=== PATIENT | male | born 1950 | race Caucasian/White ===

== ENCOUNTER 2023-04-17 14:02 | Observation (INO) ==
--- NOTE | 2023-04-17 14:10 | ED Triage Note ---
Date of Service April 17, 2023 Provider in Triage Author: Meagan Baltazar History of Present Illness This patient was briefly evaluated while in triage. An abbreviated physical exam was performed. This patient is a 72-year-old Male who presents to the ED for evaluation of "a urinary tract infection, I think." Friday, had cloudy urine. Denies any pain. Has had fevers/chills. Physical Exam VITALS: Vitals are noted on the nurse's note and reviewed by myself. GENERAL: This is a 72 year old male, in no acute distress, nondiaphoretic, well- developed well-nourished. SKIN: No obvious rashes, edema, erythema HEAD: Normocephalic atraumatic. EYES: Conjunctivae without injection, sclerae without icterus. NECK: No JVD. LUNGS: No retractions or accessory muscle use. MUSCULOSKELETAL: Presents in a wheelchair NEURO: Patient was alert and oriented to person place and time. No focal neurological deficits. Initial orders for labs and / or imaging were placed and patient was placed in the waiting area until a bed is available. Please see further documentation for the full ED course.
[2023-04-17] MEDS ORDERED: SODIUM CHLORIDE 0.9% 500 ML IV STA (14:13)
[2023-04-17 15:04] LABS: Basophils # (auto) 0.02 K/uL (0.00-0.20); Basophils % (auto) 0.5 %; Eosinophils # (auto) 0.08 K/uL (0.00-0.50); Eosinophils % (auto) 2.1 %; Hematocrit (blood only) 37.6 % (42.0-52.0); Hemoglobin 12.9 g/dl (14.0-18.0); Immature Granulocytes # (auto) 0.01 K/uL (0.01-0.20); Immature Granulocytes % (auto) 0.3 %; Lymphocytes # (auto) 1.43 K/uL (1.20-3.40); Lymphocytes % (auto) 37.4 %; Mean Corpuscular Hemoglobin 27.4 pg (25.0-34.0); Mean Corpuscular Hgb Conc 34.3 g/dL (32.0-36.0); Mean Platelet Volume 10.4 fL (9.4-12.4); Monocytes # (auto) 0.58 K/uL (0.11-0.59); Monocytes % (auto) 15.2 %; Neutrophils % (auto) 44.5 %; Platelet Count 151 K/uL (130-400); RDW Coefficient of Variation 16.3 % (11.5-14.5); RDW Standard Deviation 46.9 fL (36.4-46.3); White Blood Count 3.82 K/ul (4.8-10.8)
[2023-04-17 15:07] LABS: Appearance Urine Turbid (Clear); Bacteria Urine Automated Negative (Negative); Bilirubin Urine Negative (Negative); Blood Urine Trace (Negative); Color Urine Dark Yellow; Glucose Urine UA Negative (Negative); Ketones Urine 1+ (Negative); Leukocyte Esterase Urine 3+ (Negative); Nitrite Urine Negative (Negative); Protein Urine 1+ (Negative); RBC Urine Automated 0-4 /hpf (0-4); Specific Gravity Urine 1.014 (1.000-1.030); Urobilinogen Urine Negative (Negative); WBC Urine Automated >30 /hpf (0-5)
[2023-04-17 15:18] LABS: Alanine Aminotransferase 6 U/L (7-52); Albumin Globulin Ratio 1.3 (0.9-2); Alkaline Phosphatase 171 U/L (34-104); Anion Gap 10 (3-11); Aspartate Aminotransferase 36 U/L (13-39); BUN Creatinine Ratio 18.5 (10-20); Bilirubin,Total 0.9 mg/dl (0.2-1.0); Blood Urea Nitrogen 20 mg/dl (6-23); Calcium 9.2 mg/dl (8.6-10.3); Carbon Dioxide 22 mmol/L (21-32); Chloride 103 mmol/L (98-107); Est GFR (African American) 79.6 ml/min; Est GFR (Non-African American) 68.7 ml/min; Glucose 141 mg/dl (70-99(Fasting)); Lipase 37 U/L (11-82); Potassium 3.6 mmol/L (3.5-5.1); Sodium 135 mmol/L (136-145)
--- NOTE | 2023-04-17 16:00 | CT Scan Report ---
CT SCAN OF THE ABDOMEN AND PELVIS WITHOUT IV CONTRAST CLINICAL HISTORY: Urinary tract infection. COMPARISON STUDY: Abdominal CT dated 02/05/2021. TECHNIQUE: CT scan of the abdomen and pelvis is performed from the lung bases to the proximal femora. Images are reviewed in the axial, sagittal, and coronal planes. IV contrast was not administered for this examination. A dose lowering technique was utilized adhering to the principles of ALARA. CT DOSE: 1237.56 mGy.cm FINDINGS: Lung bases: The heart is top normal in size and without pericardial effusion. There is coronary arter y atherosclerosis. Agent on the right lower lobe pulmonary nodule is seen on image #6. The lung bases are otherwise clear. There is a small hiatal hernia. Liver: The unenhanced liver is normal in size, contour, and attenuation. There is no intrahepatic sundeep iary ductal dilatation. Gallbladder: Unremarkable. Spleen: The spleen is enlarged measuring 14.6 cm in length. Pancreas: The unenhanced pancreas is moderately atrophic and grossly unremarkable. Adrenal glands: Unremarkable. Kidneys: The unenhanced kidneys there is a mild cortical atrophy. There is moderate to severe bilater al hydroureteronephrosis. The ureters are dilated to the level of the markedly distended bladder. No obstructing stone or lesion is seen. No renal calculi are identified. There is no evidence of contour deforming renal mass lesion. Abdominal vasculature: The abdominal aorta is normal in course and caliber noting moderate atheroscle rotic calcification. Bowel: There is mild colonic diverticulosis without CT evidence of acute diverticulitis. No bowel obs truction is seen. There is moderate colonic fecal retention. The appendix is well-visualized and nor mal. Peritoneum: There is no intraperitoneal free air or abdominal ascites. Lymphadenopathy: None. Pelvic viscera: The prostate gland is enlarged and heterogeneous. The bladder is significantly disten ded, and the bladder wall is thickened/trabeculated indicating chronic outlet obstruction. Small blad jorje diverticula measure up to 2.5 cm. There is a fat-containing left inguinal hernia. A left-sided hy drocele is partially imaged. Skeletal structures: The skeletal structures are osteopenic. No lytic or blastic lesions are seen. Mi ld lumbosacral spondylosis is observed. There are chronic/healed right-sided rib fractures. IMPRESSION: 1. Prostatomegaly with marked bladder distention and evidence of chronic outlet obstruction. 2. Moderate to severe bilateral hydroureteronephrosis. This is likely related to the degree of bladde r distention. Correlate clinically. 3. Mild colonic diverticulosis without CT evidence of acute diverticulitis. 4. Splenomegaly. 5. Additional findings as above. ACT 112: Negative or not required by law. Electronically signed by: Corky Dewitt M.D. 04/17/2023 3:58 PM
[2023-04-17] MEDS ORDERED: cefTRIAXone SODIUM 1,000 MG in DEXTROSE 5 % MINI-B 50 ML IV STA (17:16)
--- NOTE | 2023-04-17 17:18 | Emergency Department Note ---
Impression & Plan Acute UTI, Acute urinary retention ED Provider Note Diagnosis: UTI, urinary retention, hydronephrosis Disposition: Admission CHIEF COMPLAINT: HPI: Patient is a 72-year-old male presenting with urinary symptoms. Patient states he has been having dysuria for 4 to 5 days time. Patient states that he has had issues with urethral stricture previously. Patient states he most recently in the past 3 to 6 months had it dilated. Patient denies any significant abdominal pain currently. Patient denies fevers or chills. PAST MEDICAL HISTORY: See Below PAST SURGICAL HISTORY: See Below SOCIAL HISTORY: See Below HOME MEDICATIONS: See Below ALLERGIES: See Below VITALS: See Below PHYSICAL EXAMINATION: GENERAL: Well appearing, well nourished, NAD, non-toxic. EYE EXAM: Normal conjunctiva. OROPHARYNX: Moist mucus membranes. Grossly normal dentition. NECK: Supple, LUNGS: Clear to auscultation. Normal chest wall mechanics. HEART: NSR ABDOMEN: Abdomen soft, distention lower abdomen suprapubic region BACK: No CVA TTP. SKIN: No rashes and no bruising. UPPER EXTREMITIES: Upper extremities are grossly normal LOWER EXTREMITIES: Grossly normal, no edema. NEURO EXAM: A&O x3,, normal speech, moves all 4 extremities PSYCH: Cooperative MEDICAL DECISION MAKING: Reviewed external documents: History obtained from: Patient, ER Course: Patient is a 72-year-old male presenting with complaint of dysuria. Patient found to have urinalysis with UTI and started on Rocephin. Patient's abdomen in the suprapubic region was distended. Patient has CT of abdomen pelvis which showed significant distention of the bladder with increased size to the prostate with hydronephrosis bilaterally. Patient had a postvoid residual performed which was 700 cc. Patient's case was discussed with urology team attempt was had by nursing staff as well as myself for Rutherford catheter placement which was unsuccessful. Patient did not have any bleeding from the penis. Patient's case again was discussed with urology who came down bedside to evaluate the patient. Patient was admitted to hospital service due to UTI urinary retention. Labs (independently interpreted) are significant for: Leukocytosis Medications given: Rocephin Consultants: Dr. Howard of urology reviewed patient's outpatient studies with Dr. Leblanc. Recommends attempting Rutherford catheter placement 14 Yoruba catheter and if meeting any resistance to stop and call him back and he will evaluate the patient in person. Hospitalist admit the patient to their service further treatment evaluation Triage Nursing notes reviewed and agree them. Vital Signs: reviewed and remarkable for: no significant abnormalities Past Med/Surg History Medical History Allergic rhinitis History of urethral stricture Iron deficiency anemia Major depressive disorder with single episode Parkinsonism Progressive supranuclear palsy Recurrent UTI Vitamin D deficiency Surgical History Urinary anastomotic stricture Family History Mother Depression Diabetes Other Hypertension Denies family history of Ovarian cancer Prostate cancer Myocardial infarction Breast cancer Colorectal cancer Social History (Updated 04/17/23 @ 13:15 by MARINO White) Smoking Status: Never smoker Age Started Using Tobacco: 19; Age Quit Using Tobacco: 46; Second Hand Exposure: No; Do You Dip or Chew Tobacco: No; Hx Alcohol Use: No Hx Substance Use: No Preferred Language: Hungarian Communication Ability: Effective 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: No Beliefs That Will Affect Care: None marital status: Current Living Situation: Spouse current occupational status: retired How many Children do You have: 3 Feels Safe at Home: Yes Childhood Exposure to Second-Hand Smoke: No Diet: regular caffeine: Yes Dental Care, Regularly: No Physical Activity Frequency: Does not Exercise Seatbelt Use: always Sunscreen Use: Yes Assistive Devices: Glasses and Walker Allergies Allergies Allergy/AdvReac Type Severity Reaction Status Date / Time No Known Allergies Allergy Verified 04/17/23 13:04 Home Meds Home Medications Medication Instructions Recorded Confirmed cholecalciferol (vitamin D3) 125 125 mcg PO QAM 02/05/21 04/17/23 mcg (5,000 unit) tablet (Vitamin D3) loratadine 10 mg tablet (Claritin) 10 mg PO QAM 02/05/21 04/17/23 carbidopa 25 mg-levodopa 100 mg 2 tab PO QID 12/18/22 04/17/23 tablet (Sinemet) ferrous sulfate 325 mg (65 mg 325 mg PO Q OTHER DAY 12/18/22 04/17/23 iron) tablet carbidopa ER 36.25 mg-levodopa 145 1 cap PO UD 04/17/23 04/17/23 mg capsule,extended release finasteride 5 mg tablet 5 mg PO QAM 04/17/23 04/17/23 losartan 25 mg tablet 25 mg PO QAM 04/17/23 04/17/23 rosuvastatin 20 mg tablet (Crestor) 20 mg PO QAM 04/17/23 04/17/23 tamsulosin 0.4 mg capsule 0.4 mg PO QAM 04/17/23 04/17/23 Previous Rx's Medication Instructions Recorded omeprazole 20 mg capsule,delayed 20 mg PO DAILYBB #90 caps 01/27/23 release alprazolam 0.25 mg tablet (Xanax) 0.125 - 0.25 mg (0.5 - 1 x 0.25 02/05/23 mg) PO DAILY PRN sleep #30 tabs bupropion HCl 150 mg 24 hr tablet, 150 mg PO QAM #90 tabs 03/10/23 extended release Results & Data (ED) Vital Signs Vital Signs - 24 hr 04/17/23 14:08 04/17/23 16:03 04/17/23 16:14 Temperature 36.8 C Temperature Source Temporal Artery Scan Pulse Rate 85 73 Pulse Rate [Apical] 74 Respiratory Rate 18 18 Respiratory Effort / Characteristics Non-Labored Spontaneous Respiratory Depth Normal Blood Pressure 153/90 H Blood Pressure [Left Arm] 169/82 H Blood Pressure Mean 111 Blood Pressure Mean [Left Arm] 111 Blood Pressure Position Sitting Pulse Oximetry 95 97 Oxygen Delivery Method Room Air Room Air Sepsis Recent Fever Within 48 Hours No Sepsis New/Unexplained Change in Mental Status No Sepsis Action Taken by Nursing No Action Required Laboratory Data 04/17/23 14:45 04/17/23 14:45 Lab Results 04/17/23 Range/Units 14:45 WBC 3.82 L (4.8-10.8) K/ul RBC 4.70 (4.70-6.10) M/uL Hgb 12.9 L (14.0-18.0) g/dl Hct 37.6 L (42.0-52.0) % MCV 80.0 (80.0-100.0) fL MCH 27.4 (25.0-34.0) pg MCHC 34.3 (32.0-36.0) g/dL RDW Std Deviation 46.9 H (36.4-46.3) fL RDW Coeff of Ana Rosa 16.3 H (11.5-14.5) % Plt Count 151 (130-400) K/uL MPV 10.4 (9.4-12.4) fL Immature Gran % (Auto) 0.3 % Neut % (Auto) 44.5 % Lymph % (Auto) 37.4 % Sampson % (Auto) 15.2 % Eos % (Auto) 2.1 % Baso % (Auto) 0.5 % Neut # (Auto) 1.70 (1.40-6.50) K/uL Lymph # (Auto) 1.43 (1.20-3.40) K/uL Sampson # (Auto) 0.58 (0.11-0.59) K/uL Eos # (Auto) 0.08 (0.00-0.50) K/uL Baso # (Auto) 0.02 (0.00-0.20) K/uL Immature Gran # (Auto) 0.01 (0.01-0.20) K/uL Sodium 135 L (136-145) mmol/L Potassium 3.6 (3.5-5.1) mmol/L Chloride 103 (98-107) mmol/L Carbon Dioxide 22 (21-32) mmol/L Anion Gap 10 (3-11) BUN 20 (6-23) mg/dl Creatinine 1.08 (0.6-1.4) mg/dl Est Cr Clr Drug Dosing Not Reportable Est GFR ( Amer) 79.6 ml/min Est GFR (Non-Af Amer) 68.7 ml/min BUN/Creatinine Ratio 18.5 (10-20) Glucose 141 H (70-99(Fasting)) mg/dl Calcium 9.2 (8.6-10.3) mg/dl Total Bilirubin 0.9 (0.2-1.0) mg/dl AST 36 (13-39) U/L ALT 6 L (7-52) U/L Alkaline Phosphatase 171 H (34-104) U/L Total Protein 7.0 (6.0-8.3) gm/dl Albumin 4.0 (3.4-5.0) gm/dl Globulin 3.0 (2.5-4.0) gm/dl Albumin/Globulin Ratio 1.3 (0.9-2) Lipase 37 (11-82) U/L Administered Medications Acetaminophen (Acetaminophen 500 Mg Tab) 1,000 mg PO Q8H DAVID Stop: 05/17/23 21:52 Last Admin: 04/17/23 22:25 Dose: 1,000 mg Documented By: MAYELA Carbidopa/Levodopa (Carbidopa/Levodopa 25/100mg Tab) 2 tab PO 0800,1200,1600,2000 DAVID Stop: 05/17/23 22:29 Last Admin: 04/17/23 22:24 Dose: 2 tab Documented By: MAYELA Enoxaparin Sodium (Enoxaparin Inj 40 Mg/0.4 Ml Syr) 40 mg SQ HS DAVID Stop: 05/17/23 22:14 Last Admin: 04/17/23 22:25 Dose: 40 mg Documented By: MAYELA Lactated Ringer's (Lr) 1,000 mls @ 80 mls/hr IV .[id number] DAVID Stop: 04/18/23 10:22 Last Admin: 04/17/23 22:21 Dose: 80 mls/hr Documented By: MAYELA Discontinued Medications Carbidopa/Levodopa (Carbidopa/Levodopa 25/100mg Tab) 2 tab PO QID DAVID Stop: 05/17/23 21:52 Last Admin: 04/18/23 00:00 Dose: Not Given Documented By: MAYELA Sodium Chloride (Nss) 500 mls @ 999 mls/hr IV .Q31M STA Stop: 04/17/23 14:43 Last Infusion: 04/17/23 16:21 Dose: Infused Documented By: Admin: 04/17/23 14:56 Dose: 999 mls/hr Documented By: GRICELDAD Ceftriaxone Sodium 1,000 mg/ (Dextrose) 50 mls @ 100 mls/hr IV NOW STA; Protocol Stop: 04/17/23 17:45 Last Infusion: 04/17/23 18:42 Dose: Infused Documented By: Admin: 04/17/23 17:41 Dose: 100 mls/hr Documented By: ACC Famotidine (Pepcid 20mg Iv Push) 20 mg in 5 mls @ 2.5 mls/min IV NOW STA Stop: 04/17/23 19:49 Last Admin: 04/17/23 20:10 Dose: 2.5 mls/min Documented By: ACC Ketorolac Tromethamine (Ketorolac Tromethamine 15 Mg/Ml Vial) 15 mg IV NOW ONE Stop: 04/17/23 19:49 Last Admin: 04/17/23 20:10 Dose: 15 mg Documented By: ACC Morphine Sulfate (Morphine Sulfate 4 Mg/Ml 1 Ml Carp\Vial) 4 mg IV NOW STA Stop: 04/17/23 18:42 Last Admin: 04/17/23 18:46 Dose: 4 mg Documented By: [facility] Imaging Data Radiologist's Impression: Abdomen/Pelvis CT 04/17/23 15:07 CT SCAN OF THE ABDOMEN AND PELVIS WITHOUT IV CONTRAST CLINICAL HISTORY: Urinary tract infection. COMPARISON STUDY: Abdominal CT dated 02/05/2021. TECHNIQUE: CT scan of the abdomen and pelvis is performed from the lung bases to the proximal femora. Images are reviewed in the axial, sagittal, and coronal planes. IV contrast was not administered for this examination. A dose lowering technique was utilized adhering to the principles of ALARA. CT DOSE: 1237.56 mGy.cm FINDINGS: Lung bases: The heart is top normal in size and without pericardial effusion. There is coronary artery atherosclerosis. Agent on the right lower lobe pulmonary nodule is seen on image #6. The lung bases are otherwise clear. There is a small hiatal hernia. Liver: The unenhanced liver is normal in size, contour, and attenuation. There is no intrahepatic biliary ductal dilatation. Gallbladder: Unremarkable. Spleen: The spleen is enlarged measuring 14.6 cm in length. Pancreas: The unenhanced pancreas is moderately atrophic and grossly unremarkable. Adrenal glands: Unremarkable. Kidneys: The unenhanced kidneys there is a mild cortical atrophy. There is moderate to severe bilateral hydroureteronephrosis. The ureters are dilated to the level of the markedly distended bladder. No obstructing stone or lesion is seen. No renal calculi are identified. There is no evidence of contour deforming renal mass lesion. Abdominal vasculature: The abdominal aorta is normal in course and caliber noting moderate atherosclerotic calcification. Bowel: There is mild colonic diverticulosis without CT evidence of acute diverticulitis. No bowel obstruction is seen. There is moderate colonic fecal retention. The appendix is well-visualized and normal. Peritoneum: There is no intraperitoneal free air or abdominal ascites. Lymphadenopathy: None. Pelvic viscera: The prostate gland is enlarged and heterogeneous. The bladder is significantly distended, and the bladder wall is thickened/trabeculated indicating chronic outlet obstruction. Small bladder diverticula measure up to 2.5 cm. There is a fat-containing left inguinal hernia. A left-sided hydrocele is partially imaged. Skeletal structures: The skeletal structures are osteopenic. No lytic or blastic lesions are seen. Mild lumbosacral spondylosis is observed. There are chronic/healed right-sided rib fractures. IMPRESSION: 1. Prostatomegaly with marked bladder distention and evidence of chronic outlet obstruction. 2. Moderate to severe bilateral hydroureteronephrosis. This is likely related to the degree of bladder distention. Correlate clinically. 3. Mild colonic diverticulosis without CT evidence of acute diverticulitis. 4. Splenomegaly. 5. Additional findings as above. ACT 112: Negative or not required by law. Electronically signed by: Corky Dewitt M.D. 04/17/2023 3:58 PM Discharge Plan Visit Data Chief Complaint: Urinary Symptoms Stated Complaint: UTI,FEVER, CHILLS, HYPOTENSION,WEAKNESS ED Provider: Fran Matute Discharge Problem: Acute UTI, Acute urinary retention Patient Disposition: Admitted As Inpatient Discharge Instructions Interventions: ED Discharge Assessment Last Done: 04/17/23 21:20
[2023-04-17] MEDS ORDERED: MoRPHine SULFATE 4 MG/ML 1 ML CARP\\VIAL IV STA (18:41)
[2023-04-17] MEDS ORDERED: FAMOTIDINE 20MG IV PUSH 20 MG/5 ML SYR IV STA (19:48)
[2023-04-17] MEDS ORDERED: KETOROLAC TROMETHAMINE 15 MG/ML VIAL IV ONE (19:48)
--- NOTE | 2023-04-17 19:51 | Urology Consultation ---
Date of Consultation April 17, 2023 Assessment & Plan (1) Recurrent UTI: (2) History of urethral stricture: Plan Rutherford catheter was successfully placed after urethral dilation. Patient tolerated the procedure well. Catheter should stay in for at least a week to allow bladder rest and full treatment of his presumed urinary tract infection. Would recommend broad-spectrum antibiotics, narrowing coverage as culture data becomes available. Will plan to arrange outpatient follow-up to discuss his urethral stricture further and whether there is any indication for further intervention. History of Present Illness Reason for Consultation: Urinary retention, inability to place Rutherford catheter Attending Physician: Fran Matute, History of Present Illness This is a 72-year-old male followed by urology for urethral strictures, incomplete bladder emptying.He presented to the emergency department on 04/17/2023 reporting 4 to 5 days of gradually worsening dysuria and fatigue. He had been prescribed Macrobid and had some ciprofloxacin at home which he tried. Initially, there was some improvement in his symptoms, however after approximately 1 day, he started to worsen. Workup in the ED was notable for leukopenia (WBC 3.82). Creatinine was 1.08, glucose 141. Urinalysis demonstrated turbid urine, positive nitrites, 3+ leukocyte esterase, negative bacteria. In the emergency department a CT scan was performed. I independently reviewed these images which demonstrate significant bilateral hydronephrosis and hydroureter, extending down to a distended bladder. No stones or other focal obstructions are appreciated. Due to the distended bladder and associated hydronephrosis, Rutherford catheter placement was attempted, however providers in the ED were unsuccessful. Urology was consulted for assistance with catheter placement. Rutherford catheter was placed in the following fashion: Rutherford catheter was placed in the following fashion: Patient was prepped and draped in normal sterile fashion and verbal consent was obtained. ~10 cc of sterile lubricant jelly was injected per urethra. A well- lubricated 18 Fr coud catheter was inserted per urethra, however met resistance at approximately the level of the bulbar urethra. 0.038 inch zip wire was then advanced per urethra and easily past the narrowed area. Good position was confirmed in the bladder by patient reporting increased sense of pressure and some urine draining alongside the wire. The urethra was dilated using S curved dilators from 8-14 Kazakh. A councilized 14 Kazakh silicone catheter was then advanced over the wire, past the stricture and up to the bladder. There was return of dark yellow urine. The balloon was inflated with 10 mL of normal saline and the catheter was attached to gravity drainage. Patient tolerated the procedure well with no immediate complications. Allergies Allergy/AdvReac Type Severity Reaction Status Date / Time No Known Allergies Allergy Verified 04/17/23 13:04 Home Medications Medication Instructions Recorded Confirmed Type cholecalciferol (vitamin D3) 125 125 mcg PO QAM 02/05/21 04/17/23 History mcg (5,000 unit) tablet (Vitamin D3) loratadine 10 mg tablet (Claritin) 10 mg PO QAM 02/05/21 04/17/23 History carbidopa 25 mg-levodopa 100 mg 2 tab PO QID 12/18/22 04/17/23 History tablet (Sinemet) ferrous sulfate 325 mg (65 mg 325 mg PO Q OTHER DAY 12/18/22 04/17/23 History iron) tablet omeprazole 20 mg capsule,delayed 20 mg PO DAILYBB #90 caps 01/27/23 04/17/23 Rx release alprazolam 0.25 mg tablet (Xanax) 0.125 - 0.25 mg (0.5 - 1 x 0.25 02/05/23 04/17/23 Rx mg) PO DAILY PRN sleep #30 tabs bupropion HCl 150 mg 24 hr tablet, 150 mg PO QAM #90 tabs 03/10/23 04/17/23 Rx extended release finasteride 5 mg tablet 5 mg PO QAM 04/17/23 04/17/23 History losartan 25 mg tablet 25 mg PO QAM 04/17/23 04/17/23 History rosuvastatin 20 mg tablet (Crestor) 20 mg PO QAM 04/17/23 04/17/23 History tamsulosin 0.4 mg capsule 0.4 mg PO QAM 04/17/23 04/17/23 History Patient History Medical History Allergic rhinitis History of urethral stricture Iron deficiency anemia Major depressive disorder with single episode Parkinsonism Progressive supranuclear palsy Recurrent UTI Vitamin D deficiency Surgical History Urinary anastomotic stricture Family History Mother Depression Diabetes Other Hypertension Denies family history of Ovarian cancer Prostate cancer Myocardial infarction Breast cancer Colorectal cancer Social History (Updated 04/17/23 @ 13:15 by MARINO White) Smoking Status: Never smoker Age Started Using Tobacco: 19; Age Quit Using Tobacco: 46; Second Hand Exposure: No; Do You Dip or Chew Tobacco: No; Hx Alcohol Use: No Hx Substance Use: No Preferred Language: Beninese Communication 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 Physical Exam Constitutional: well developed and well nourished; no acute distress Eyes: + anicteric sclerae; pupils not irregula r Respiratory: normal respiratory effort; no respiratory distress, does not use accessory muscles and no cough Cardiovascular: well perfused Gastrointestinal (Abdomen): Inspection/Auscultation: abdomen normal to inspection; abdomen not distended Musculoskeletal: Extremities: extremities normal to inspection Skin: normal turgor; no rashes and no lesions Neurologic: awake Psychiatric: Orientation: alert and oriented x 3 Genitourinary: Rutherford catheter in position with dark urine draining in tubing. Results & Data Vital Signs (Past 12 Hours) Vital Signs Temp Pulse Pulse Resp BP BP Pulse Ox 04/17/23 16:14 73 04/17/23 16:03 74 18 169/82 H 97 04/17/23 14:08 36.8 C 85 18 153/90 H 95 O2 Del Method 04/17/23 16:14 04/17/23 16:03 Room Air 04/17/23 14:08 Room Air PG Care Time/CCT Total # of Minutes Spent Total Time Spent with Patient: Total time spent is greater than 50% in coordination of care (as documented) at patient's floor/unit and/or counseling patient: Coding Level of Care Code 64960 OP VST NEW MOD 45-59 MIN Diagnoses Recurrent UTI N39.0 History of urethral stricture Z87.448
--- NOTE | 2023-04-17 20:26 | History & Physical Report ---
Date of Service April 17, 2023 Assessment & Plan (1) Urinary tract infection: Plan: -Pt with history of recurrent UTIs and urethral stricture presenting with acute urinary tract infection w/o pyelonephritis -Currently hemodynamically stable, afebrile, leukopenic though not meeting SIRS criteria on admission -Rocephin initiated in ED, will continue for now -UCx, BCx pending -Monitor CBC (2) Abdominal pain: Plan: -Secondary to acute infection/ascending UTI -Fluid repletion ongoing at maintenance -Zofran PRN nausea -Scheduled Tylenol w/ PRN Toradol and morphine for pain (3) Hydronephrosis: Plan: -Noted b/l severe hydronephrosis -S/p Rutherford catheter placement by urology -Urology consulted and following -Recommendations include maintaining catheter for 1 week w/o outpatient f/u (4) GERD (gastroesophageal reflux disease): Plan: -Continue omeprazole (5) HTN (hypertension): Plan: -Mild BP elevations likely due to abdominal pain -Continue losartan (renal function wnl on admission) (6) BPH with obstruction/lower urinary tract symptoms: Plan: -Continue tamsulosin, finasteride (7) Dyslipidemia: Plan: -Continue rosuvastatin (8) Iron deficiency anemia: Plan: -Hgb 12.9 on admission -No bleeding concern at present -Hold iron supplement while acute infection ongoing -Monitor CBC (9) Allergic rhinitis: Plan: -Continue Claritin (10) Major depressive disorder with single episode: Plan: -Continue Wellbutrin (11) Parkinsonism: Plan: -Continue Sinemet Plan FENGI: NPO except sips/chips due to abdominal pain -> advance to clear liquids in AM Code status: Full DVT prophylaxis: Lovenox Isolation: None Unit: Medical/surgical Disposition planning: Likely home History of Present Illness Chief Complaint: Dysuria Primary Care Provider: Teresa Martin MD Pt is 72 yo M with PMH HTN, HLD, BPH, GERD, IRMA, MDD, atypical Parkinson's disease, recurrent UTIs, urethral stricture with PRN Macrobid use presenting with dysuria. Pt states he's had dysuria with increased nocturnal urinary frequency and urinary discoloration (cloudy -> dark) since 04/13. Has had associated generalized weakness, fatigue, nausea and reduced oral intake along with mild suprapubic abdominal pain. Symptoms evolved to include intermittent subjective fevers and chills. He did use Macrobid during this time to little relief and started taking ciprofloxacin on 04/15 which did provide considerable relief of symptoms initially but they progressed the following day. Pt had PCP visit on 04/17 and was advised to go to ER for further evaluation. Pt arrived to ER hemodynamically stable. Initial evaluation significant for WBC 3.8, Hgb 12.9, UA w/ LE + WBCs. CTAP w/ prostatomegaly w/ marked bladder distension and chronic outlet obstruction, moderate/severe b/l hydronephrosis. ER interventions include NSS 500 cc bolus, ceftriaxone 1g, morphine 4 mg IV. Rutherford catheter placement attempted in ER but unsuccessful and required urology consult for successful catheter placement. At present, pt reports continued abdominal pain but otherwise no new complaints. Allergies Allergy/AdvReac Type Severity Reaction Status Date / Time No Known Allergies Allergy Verified 04/17/23 13:04 Home Medications Medication Instructions Recorded Confirmed Type cholecalciferol (vitamin D3) 125 125 mcg PO QAM 02/05/21 04/17/23 History mcg (5,000 unit) tablet (Vitamin D3) loratadine 10 mg tablet (Claritin) 10 mg PO QAM 02/05/21 04/17/23 History carbidopa 25 mg-levodopa 100 mg 2 tab PO QID 12/18/22 04/17/23 History tablet (Sinemet) ferrous sulfate 325 mg (65 mg 325 mg PO Q OTHER DAY 12/18/22 04/17/23 History iron) tablet omeprazole 20 mg capsule,delayed 20 mg PO DAILYBB #90 caps 01/27/23 04/17/23 Rx release alprazolam 0.25 mg tablet (Xanax) 0.125 - 0.25 mg (0.5 - 1 x 0.25 02/05/23 04/17/23 Rx mg) PO DAILY PRN sleep #30 tabs bupropion HCl 150 mg 24 hr tablet, 150 mg PO QAM #90 tabs 03/10/23 04/17/23 Rx extended release carbidopa ER 36.25 mg-levodopa 145 1 cap PO UD 04/17/23 04/17/23 History mg capsule,extended release finasteride 5 mg tablet 5 mg PO QAM 04/17/23 04/17/23 History losartan 25 mg tablet 25 mg PO QAM 04/17/23 04/17/23 History rosuvastatin 20 mg tablet (Crestor) 20 mg PO QAM 04/17/23 04/17/23 History tamsulosin 0.4 mg capsule 0.4 mg PO QAM 04/17/23 04/17/23 History Past Med/Surg History Medical History Allergic rhinitis History of urethral stricture Iron deficiency anemia Major depressive disorder with single episode Parkinsonism Progressive supranuclear palsy Recurrent UTI Vitamin D deficiency Surgical History Urinary anastomotic stricture Family History Mother Depression Diabetes Other Hypertension Denies family history of Ovarian cancer Prostate cancer Myocardial infarction Breast cancer Colorectal cancer Social History (Updated 04/17/23 @ 13:15 by MARINO White) Smoking Status: Never smoker Age Started Using Tobacco: 19; Age Quit Using Tobacco: 46; Second Hand Exposure: No; Do You Dip or Chew Tobacco: No; Hx Alcohol Use: No Hx Substance Use: No Preferred Language: Persian Communication Ability: Effective [employer] Required: No marital status: Current Living Situation: Spouse current occupational status: retired How many Children do You have: 3 Feels Safe at Home: Yes Childhood Exposure to Second-Hand Smoke: No Diet: regular caffeine: Yes Dental Care, Regularly: No Physical Activity Frequency: Does not Exercise Seatbelt Use: always Sunscreen Use: Yes Review of Systems Review of Systems: Per HPI/Subjective Physical Exam Physical Exam: General: uncomfortable-appearing, mild distress HEENT: PERRL, conjunctivae clear without injection, anicteric sclerae, moderately dry mucous membranes, clear oropharynx without exudate or erythema Neck: supple, trachea midline, no thyromegaly, no JVD, no cervical lymphadenopathy CV: RRR, normal S1 and S2, no murmurs Resp: CTAB, no increased work of breathing, no crackles or wheezes Abd: Soft, mild diffuse tenderness but no CVA tenderness, nondistended, no guarding or rebound, no hepatosplenomegaly MSK: Normal bulk of all four extremities Neuro: AOx3, generalized mild LE tremor greater in L > R (baseline Parkinsonian tremor per at bedside) Skin: no rashes or lesions, warm and dry Ext: no LE peripheral edema or erythema, capillary refill <2s in all four extremities, 2+ LE peripheral pulses b/l Results & Data Results & Data Vital Signs (Past 12 Hours) Vital Signs Temp Pulse Pulse Resp BP BP Pulse Ox 04/17/23 16:14 73 04/17/23 16:03 74 18 169/82 H 97 04/17/23 14:08 36.8 C 85 18 153/90 H 95 O2 Del Method 04/17/23 16:14 04/17/23 16:03 Room Air 04/17/23 14:08 Room Air Code Status & VTE Plan VTE Prophylaxis Plan VTE Prophylaxis will be ordered: Yes Supervising Physician Co-Signing Physician Notes I have personally seen, evaluated and examined the patient. I have also personally discussed the management of the patient with the resident physician and I agree with the exam findings documented in the history and physical examination and the documented assessment and plan unless otherwise stated below. I have personally discussed the patient with the resident physician I personally evaluated the patient he is now status post bladder catheter placement by urology. His pain is much improved. The patient is accompanied by his at the time my exam. Tentative plan is to probably discharge home with catheter for trial of void as outpatient. Urology input appreciated. Brief physical exam: HEENT: Normocephalic atraumatic. Heart: Regular rate and rhythm I do not appreciate murmur or ectopy or rub. Lungs: Are clear bilaterally with no adventitious sounds. Abdomen: Is still mildly tender there is no rebound or peritoneal signs are positive but hypoactive bowel sounds. Extremities: Are intact with no clubbing cyanosis or significant edema. Neurologically: The patient is alert and oriented x 3 accompanied by his jose carlos ferrer that he is still in some discomfort but improving. Assessment/plan: Acute urinary retention due to bladder outlet obstruction. Status post catheter placement with urology tonight in the ER. Continue antibiotic therapy gentle IV fluids. Plan outpatient follow-up with urology upon discharge.
--- NOTE | 2023-04-17 20:38 | Billing Data ---
Date of Service April 17, 2023 Coding Level of Care Code 20782 INT INP/OBS CARE
[2023-04-17] MEDS ORDERED: ONDANSETRON INJ 2 MG/ML 2 ML VIAL IV PRN (21:53)
[2023-04-17] MEDS ORDERED: KETOROLAC TROMETHAMINE 15 MG/ML VIAL IV PRN (21:53)
[2023-04-17] MEDS ORDERED: CARBIDOPA/LEVODOPA 25/100MG TAB PO SCH (21:53)
[2023-04-17] MEDS ORDERED: MoRPHine SULFATE 2 MG/ML CARP IV PRN (21:53)
[2023-04-17] MEDS ORDERED: LACTATED RINGER'S 1,000 ML IV SCH (21:53)
[2023-04-17] MEDS ORDERED: Patient's HEIGHT &/or WEIGHT Needed SCH (22:00)
[2023-04-17] MEDS ORDERED: ENOXAPARIN INJ 40 MG/0.4 ML SYR SQ SCH (22:15)
[2023-04-17] MEDS: CARBIDOPA/LEVODOPA 25/100MG TAB PO SCH (22:24)
[2023-04-17] MEDS: ACETAMINOPHEN 500 MG TAB PO SCH (22:25)
[2023-04-18] MEDS: ACETAMINOPHEN 500 MG TAB PO SCH ×2 (05:31→13:01)
[2023-04-18] MEDS ORDERED: PANTOprazole 40 MG TAB PO SCH ×2 (06:30→08:00)
[2023-04-18 07:45] LABS: Hemoglobin 10.9 g/dl (14.0-18.0); Mean Corpuscular Hemoglobin 27.4 pg (25.0-34.0); Mean Corpuscular Hgb Conc 34.1 g/dL (32.0-36.0); Mean Corpuscular Volume 80.4 fL (80.0-100.0); Mean Platelet Volume 11.1 fL (9.4-12.4); Platelet Count 134 K/uL (130-400); RDW Coefficient of Variation 16.4 % (11.5-14.5); RDW Standard Deviation 47.6 fL (36.4-46.3); Red Blood Count 3.98 M/uL (4.70-6.10); White Blood Count 3.65 K/ul (4.8-10.8)
[2023-04-18] MEDS: CARBIDOPA/LEVODOPA 25/100MG TAB PO SCH ×2 (07:50→11:53)
[2023-04-18 08:03] LABS: Albumin Globulin Ratio 1.6 (0.9-2); Albumin Level 3.5 gm/dl (3.4-5.0); BUN Creatinine Ratio 16.8 (10-20); Bilirubin,Total 0.6 mg/dl (0.2-1.0); Calcium 8.7 mg/dl (8.6-10.3); Creatinine Clr Calc Pharmacy 64.9 ml/min; Est GFR (African American) 86.3 ml/min; Est GFR (Non-African American) 74.5 ml/min; Globulin 2.2 gm/dl (2.5-4.0); Potassium 3.6 mmol/L (3.5-5.1); Total Protein 5.7 gm/dl (6.0-8.3)
[2023-04-18] MEDS ORDERED: Nursing to Pharmacy Communication SCH (08:15)
[2023-04-18] MEDS ORDERED: LOSARTAN POTASSIUM 25 MG TAB PO SCH (09:00)
[2023-04-18] MEDS ORDERED: TAMSULOSIN HCL 0.4 MG CAP PO SCH (09:00)
[2023-04-18] MEDS ORDERED: buPROPion XL 150 MG TABCR PO SCH (09:00)
[2023-04-18] MEDS ORDERED: FINASTERIDE 5 MG TAB PO SCH (09:00)
[2023-04-18] MEDS ORDERED: LORATADINE 10 MG TAB PO SCH (09:00)
[2023-04-18] MEDS ORDERED: ROSUVASTATIN CALCIUM 20 MG TAB PO SCH (09:00)
--- NOTE | 2023-04-18 14:19 | Discharge Summary ---
Date of Service April 18, 2023 Admission HPI Per Admitting Provider Pt is 72 yo M with PMH HTN, HLD, BPH, GERD, IRMA, MDD, atypical Parkinson's disease, recurrent UTIs, urethral stricture with PRN Macrobid use presenting with dysuria. Pt states he's had dysuria with increased nocturnal urinary frequency and urinary discoloration (cloudy -> dark) since 04/13. Has had associated generalized weakness, fatigue, nausea and reduced oral intake along with mild suprapubic abdominal pain. Symptoms evolved to include intermittent subjective fevers and chills. He did use Macrobid during this time to little relief and started taking ciprofloxacin on 04/15 which did provide considerable relief of symptoms initially but they progressed the following day. Pt had PCP visit on 04/17 and was advised to go to ER for further evaluation. Pt arrived to ER hemodynamically stable. Initial evaluation significant for WBC 3.8, Hgb 12.9, UA w/ LE + WBCs. CTAP w/ prostatomegaly w/ marked bladder distension and chronic outlet obstruction, moderate/severe b/l hydronephrosis. ER interventions include NSS 500 cc bolus, ceftriaxone 1g, morphine 4 mg IV. Child catheter placement attempted in ER but unsuccessful and required urology consult for successful catheter placement. At present, pt reports continued abdominal pain but otherwise no new complaints. Principal Diagnosis Acute on chronic urinary obstruction due to ureteral stricture with moderate bilateral hydronephrosis, possible urinary tract infection Discharge Exam PHYSICAL EXAMINATION Last 24h vital signs reviewed, see documentation in flowsheet General: comfortable appearing, no distress HEENT: Normocephalic, atraumatic, pupils round and equal, sclerae anicteric, no conjunctival injection, moist mucus membranes Lungs: Normal respiratory effort. Clear to auscultation bilaterally. No RRW Heart: Regular rate and rhythm, no murmurs. No JVD Abdomen: Soft, nontender, nondistended. Bowel sounds present. : child with 1L ammy urine in bag, no blood Extremities: Warm, dry, well-perfused. No extremity edema. Neuro: Alert and oriented x 4, bradykinesia and slow pace of speaking, face symmetric, moves 4 extremities well Psych: Normal affect and behavior Discharge Data Allergies Allergy/AdvReac Type Severity Reaction Status Date / Time No Known Allergies Allergy Verified 04/17/23 13:04 Consultations 04/17/23 19:10 ED Decision to Admit Stat Ordered Studies 04/17/23 15:07 CT abd pelvis wo con Stat Abdomen/Pelvis CT 04/17/23 15:07 CT SCAN OF THE ABDOMEN AND PELVIS WITHOUT IV CONTRAST CLINICAL HISTORY: Urinary tract infection. COMPARISON STUDY: Abdominal CT dated 02/05/2021. TECHNIQUE: CT scan of the abdomen and pelvis is performed from the lung bases to the proximal femora. Images are reviewed in the axial, sagittal, and coronal planes. IV contrast was not administered for this examination. A dose lowering technique was utilized adhering to the principles of ALARA. CT DOSE: 1237.56 mGy.cm FINDINGS: Lung bases: The heart is top normal in size and without pericardial effusion. There is coronary artery atherosclerosis. Agent on the right lower lobe pulmonary nodule is seen on image #6. The lung bases are otherwise clear. There is a small hiatal hernia. Liver: The unenhanced liver is normal in size, contour, and attenuation. There is no intrahepatic biliary ductal dilatation. Gallbladder: Unremarkable. Spleen: The spleen is enlarged measuring 14.6 cm in length. Pancreas: The unenhanced pancreas is moderately atrophic and grossly unremarkable. Adrenal glands: Unremarkable. Kidneys: The unenhanced kidneys there is a mild cortical atrophy. There is moderate to severe bilateral hydroureteronephrosis. The ureters are dilated to the level of the markedly distended bladder. No obstructing stone or lesion is seen. No renal calculi are identified. There is no evidence of contour deforming renal mass lesion. Abdominal vasculature: The abdominal aorta is normal in course and caliber noting moderate atherosclerotic calcification. Bowel: There is mild colonic diverticulosis without CT evidence of acute diverticulitis. No bowel obstruction is seen. There is moderate colonic fecal retention. The appendix is well-visualized and normal. Peritoneum: There is no intraperitoneal free air or abdominal ascites. Lymphadenopathy: None. Pelvic viscera: The prostate gland is enlarged and heterogeneous. The bladder is significantly distended, and the bladder wall is thickened/trabeculated indicating chronic outlet obstruction. Small bladder diverticula measure up to 2.5 cm. There is a fat-containing left inguinal hernia. A left-sided hydrocele is partially imaged. Skeletal structures: The skeletal structures are osteopenic. No lytic or blastic lesions are seen. Mild lumbosacral spondylosis is observed. There are chronic/healed right-sided rib fractures. IMPRESSION: 1. Prostatomegaly with marked bladder distention and evidence of chronic outlet obstruction. 2. Moderate to severe bilateral hydroureteronephrosis. This is likely related to the degree of bladder distention. Correlate clinically. 3. Mild colonic diverticulosis without CT evidence of acute diverticulitis. 4. Splenomegaly. 5. Additional findings as above. ACT 112: Negative or not required by law. Electronically signed by: Corky Dewitt M.D. 04/17/2023 3:58 PM 04/18/23 07:10 04/18/23 07:10 Hospital Course (1) Urinary tract obstruction: presented with abdominal pain found to have grossly distended bladder and moderate bilateral hydro nephrosis on CT scan without acute kidney injury or radiographic evidence of pyelonephritis. ED staff was unable to pass Child catheter Urology consulted and was able to pass a wire allowing dilation of the urethral stricture in the ED and placement of Child catheter he has good but not excessive urine output. Discussed with urologist he will need to keep Child for at least a week, he will arrange follow-up in urology clinic. Continue current medications for enlarged prostate I discussed the risk of polyuria/postobstructive diuresis with the patient and his . He does not appear to be having any evidence of that currently. Instructed they should seek immediate medical attention if he has dehydration weakness or excessive urine output over 3 L in 24 hours and to maintain good oral hydration (2) Urinary tract infection: history of recurrent UTIs abnormal urinalysis in ED, urine culture no growth to date however he was taking chronic suppressive Macrobid and started oral Cipro on his own a few days prior to admission so could be partially treated UTI even if culture results negative antibiotic course should be 7 to 14 days. Macrobid is likely to be ineffective, considered ciprofloxacin or Bactrim weighing risks and benefits which I discussed with the patient. Prescribed 10 days of Bactrim. - Follow-up blood and urine cultures which are pending and not finalized. he is aware we may have to change antibiotic if resistant organism grows (3) Abdominal pain: -Secondary to acute urinary obstruction. Pain resolved after Child catheter placement (4) Hydronephrosis: -Noted b/l severe hydronephrosis -S/p Child catheter placement by urology - see above (5) GERD (gastroesophageal reflux disease): -Continue omeprazole (6) HTN (hypertension): -Mild BP elevations likely due to abdominal pain -Continue losartan (renal function wnl on admission) (7) BPH with obstruction/lower urinary tract symptoms: -Continue tamsulosin, finasteride (8) Dyslipidemia: -Continue rosuvastatin (9) Iron deficiency anemia: -Hgb 12.9 on admission -No bleeding concern at present (10) Allergic rhinitis: -Continue Claritin (11) Major depressive disorder with single episode: -Continue Wellbutrin (12) Parkinsonism: -Continue Sinemet, stable Plan By CMS guidelines, a determination that the admission or continued stay is not medically necessary has been made by a member of the UR committee and a physician for this hospital stay, therefore a Code 44 will be completed and the Inpatient admission will be changed to outpatient. He improved more rapidly than expected and was able to be discharged home today thus admission was changed to observation. Total Time Total Time Spent Total Time Spent (In Minutes): I personally spent: 35 today on clinical care activities for discharge including: reviewing chart notes and vital signs reviewing labs reviewing studies discussion with proposal consultant(s) - urologist examining and counseling the patient counseling the patient's family - spoke with his at bedside writing discharge orders, instructions and prescription documentation Discharge Plan Discharge Items Patient Disposition: Home - Self-Care Reason For Visit: UTI Discharge Diagnosis: Acute on chronic urinary obstruction, possible UTI Activity: Resume your previous activity Non-emergency contact: Primary Care Provider and Urologist Call non-emergency contact if: you have any medication questions, your symptoms worsen and you have a fever Follow-up/Referrals: Donnie Leblanc MD [Physician] - 04/25/23 10:20 am (voiding trial) Teresa Martin MD [Primary Care Provider] - 04/29/23 11:00 am Diet: Regular Addtl Attending Provider Instructions: You were treated for urinary obstruction with dilation of ureteral stricture and placement of child catheter by Dr. Howard. He recommended keeping the catheter in place at least a week and following up in the Urology clinic for a voiding trial. You may have urinary tract infection, urine culture and blood cultures are pending -I prescribed bactrim for 10 days. This covers most urinary bacteria. I may have to call and change the antibiotic if your cultures grow something resistant, or even bring you back in the hospital if blood cultures turn positive or if you have a highly resistant urinary infection -the urologist can stop or extend the antibiotics depending on how you are doing when you follow up -I talked to Dr. Howard and he said he'll have the office call you to schedule follow up. you might want to call if you don't hear from them by Friday -sometimes after relief of urinary obstruction the kidneys temporarily make too much urine -come back to the ED if you are getting dehydrated - this could be lightheadedness, weakness, excessive thirst, excessive urination (more than 3L a day). If this happens you might need IV fluids and electrolyte replacements It was a pleasure seeing you in the hospital Dee Conley MD Pending Studies at Discharge: Yes Studies:: urine culture, blood cultures Stand-Alone Forms: My [facility], Smoking Cessation Medications and DC Order Prescriptions: New sulfamethoxazole-trimethoprim [Bactrim DS] 800-160 mg tablet 1 tab PO BID 10 Days Qty: 20 0RF Continued carbidopa-levodopa [Sinemet] 25-100 mg tablet 2 tab PO QID omeprazole 20 mg capsule,delayed release(DR/EC) 20 mg PO DAILYBB Qty: 90 1RF alprazolam [Xanax] 0.25 mg tablet 0.125 - 0.25 mg PO DAILY PRN (Reason: sleep) Qty: 30 0RF bupropion HCl 150 mg tablet extended release 24 hr 150 mg PO QAM Qty: 90 3RF losartan 25 mg tablet 25 mg PO QAM finasteride 5 mg tablet 5 mg PO QAM rosuvastatin [Crestor] 20 mg tablet 20 mg PO QAM tamsulosin 0.4 mg capsule 0.4 mg PO QAM carbidopa-levodopa 36.25-145 mg Capsule, Extended Release 1 cap PO UD Rx Instructions: ONLY TAKES EXTENDEND RELEASE AT 10 PM. loratadine [Claritin] 10 mg Tablet 10 mg PO QAM cholecalciferol (vitamin D3) [Vitamin D3] 125 mcg (5,000 unit) Tablet 125 mcg PO QAM ferrous sulfate 325 mg (65 mg iron) tablet 325 mg PO Q OTHER DAY Discharge Orders: Discharge Order (Routine); Ordered 04/18/23 Ordered By: Dee William/Other Patient Handouts: Urinary Catheter Bag Empty Clean, Indwelling Urinary Catheter Dc Admission Data Admit Date/Time: 04/17/23 19:59 Attending Provider: Dee Conley Admit Provider: Marie Corral Primary Care Provider: Teresa Martin Other Providers: Hermes Early Other Interventions: Discharge Summary Assessment (RN) Last Done: 04/18/23 15:10 Coding Level of Care Code 63543 INP/OBS DISCH >30 MIN Diagnoses Urinary tract obstruction N13.9 Urinary tract infection N39.0 Abdominal pain R10.9 Hydronephrosis N13.30 GERD (gastroesophageal reflux disease) K21.9 HTN (hypertension) I10 BPH with obstruction/lower urinary tract symptoms N40.1; N13.8 Dyslipidemia E78.5 Iron deficiency anemia D50.9 Allergic rhinitis J30.9 Major depressive disorder with single episode F32.9 Parkinsonism G20
[2023-04-18] MEDS ORDERED: cefTRIAXone SODIUM 2,000 MG in DEXTROSE 5 % MINI-B 50 ML IV SCH (18:00)
== END 2023-04-18 15:39 | disposition home or self-care (01) | DRG 690 ==
LOC: ED 14:02 → INTOOBSV 19:59 → SUATTDRO 19:59 → 3W 19:59

== ENCOUNTER 2023-07-14 15:11 | Observation (INO) ==
[2023-07-14 16:27] LABS: Basophils # (auto) 0.05 K/uL (0.00-0.20); Basophils % (auto) 0.6 %; Eosinophils # (auto) 0.29 K/uL (0.00-0.50); Eosinophils % (auto) 3.3 %; Hematocrit (blood only) 39.3 % (42.0-52.0); Immature Granulocytes # (auto) 0.07 K/uL (0.01-0.20); Immature Granulocytes % (auto) 0.8 %; Lymphocytes # (auto) 1.96 K/uL (1.20-3.40); Lymphocytes % (auto) 22.6 %; Mean Corpuscular Hemoglobin 27.8 pg (25.0-34.0); Mean Corpuscular Hgb Conc 33.1 g/dL (32.0-36.0); Mean Corpuscular Volume 84.2 fL (80.0-100.0); Mean Platelet Volume 10.7 fL (9.4-12.4); Monocytes # (auto) 1.12 K/uL (0.11-0.59); Monocytes % (auto) 12.9 %; Neutrophils % (auto) 59.8 %; Platelet Count 257 K/uL (130-400); RDW Coefficient of Variation 14.9 % (11.5-14.5); RDW Standard Deviation 44.5 fL (36.4-46.3); Red Blood Count 4.67 M/uL (4.70-6.10); White Blood Count 8.69 K/ul (4.8-10.8)
[2023-07-14 16:43] LABS: Alanine Aminotransferase 7 U/L (7-52); Albumin Globulin Ratio 1.3 (0.9-2); Albumin Level 4.1 gm/dl (3.4-5.0); Alkaline Phosphatase 141 U/L (34-104); Anion Gap 9 (3-11); Aspartate Aminotransferase 36 U/L (13-39); BUN Creatinine Ratio 12.1 (10-20); Bilirubin,Total 0.3 mg/dl (0.2-1.0); Blood Urea Nitrogen 12 mg/dl (6-23); Calcium 9.4 mg/dl (8.6-10.3); Carbon Dioxide 24 mmol/L (21-32); Chloride 106 mmol/L (98-107); Est GFR (African American) 88.4 ml/min; Est GFR (Non-African American) 76.3 ml/min; Globulin 3.1 gm/dl (2.5-4.0); Glucose 64 mg/dl (70-99(Fasting)); Potassium 4.2 mmol/L (3.5-5.1); Sodium 139 mmol/L (136-145); Total Protein 7.2 gm/dl (6.0-8.3)
[2023-07-14] MEDS: CEFEPIME 2,000 MG/20 ML VIAL IV STA (16:44)
--- NOTE | 2023-07-14 17:13 | History & Physical Report ---
Date of Service July 14, 2023 Assessment & Plan (1) Complicated urinary tract infection: Plan: Patient presented to the ED on 07/10 for an acute UTI and was discharged on ciprofloxacin He returned on 07/13 after his Urine Cx revealed pedraza-resistance to p.o. antibiotics Indwelling Child catheter Clinically, patient denies urinary symptoms at time of admission Cefepime 2000 mg IV given in the ED Will transition to ertapenem 1 g IV daily with a plan to continue this at home Acetaminophen as needed for pain/fever A.m. CBC, BMP (2) History of urethral stricture: Plan: Chronic indwelling Child, last changed on June Will plan to change Child on 07/14 at 0900 Continue finasteride Daily Child catheter care (3) Parkinsonism: Plan: Continue levodopa 4 times daily, as well as extended release dose at nighttime (4) Constipation: Plan: On 07/10 showed moderate constipation Continue MiraLAX BID (5) Anxiety: Plan: Alprazolam 0.25mg p.o. HS as needed for anxiety (6) Major depressive disorder with single episode: Plan: Continue bupropion (7) HTN (hypertension): Plan: Continue losartan (8) GERD (gastroesophageal reflux disease): Plan: Continue omeprazole pantoprazole equivalent Plan Disposition: Obs -admit to [facility] Full code Regular diet VTE PPx: Lovenox 40 mg SQ q24h History of Present Illness Chief Complaint: Referred by doctor Primary Care Provider: Teresa Martin MD Sanjay is a 72-year-old male with PMH of Parkinson's disease, recurrent UTIs, urethral stricture (indwelling child), IRMA, HTN, GERD, dyslipidemia, and B12 deficiency. Patient initially presented on Monday 07/10 for acute UTI and was sent home on ciprofloxacin, however his urine culture resulted today on 07/13 with pedraza-resistant E. coli and he was told to come back to the ED for IV antibiotics. Patient notes he has been having chills at home, and that he took Tylenol on Friday. Clinically he denies all other urinary symptoms such as burning sensation in the groin, suprapubic pain, or blood/pus/purulent drainage in his Child or Child bag. He does have a Child catheter in place for a stricture surgery. Patient reports his catheter was last changed at Dr. Leblanc's office on June. He denies smoking or alcohol use. No supplemental oxygen use at home or CPAP. Patient reports that he did not take any of his regular morning medications besides his Sinemet (last taken at 1645, with next dose scheduled at 1999); patient takes an extended release dose around 10 PM each night. Patient reports she has been taking ciprofloxacin since his ED visit on Friday. He also notes he has been taking MiraLAX twice daily for constipation. Patient is mildly hypertensive at 151/77 at time admission; vitals otherwise stable. ED course: Cefepime 2000 mg IV ROS: Patient endorses chills and constipation. Patient denies fever, night-sweats, dizziness, lightheadedness, CP, chest palpitations, SOB, abdominal pain, N/V/D, urinary s/s, suprapubic pain, burning sensation in the groin, or numbness/tingling in the legs. Allergies Allergy/AdvReac Type Severity Reaction Status Date / Time No Known Allergies Allergy Verified 07/14/23 16:31 Home Medications Medication Instructions Recorded Confirmed Type cholecalciferol (vitamin D3) 125 125 mcg PO QAM 02/05/21 07/14/23 History mcg (5,000 unit) tablet (Vitamin D3) loratadine 10 mg tablet (Claritin) 10 mg PO QAM 02/05/21 07/14/23 History carbidopa 25 mg-levodopa 100 mg 2 tab PO QID 12/18/22 07/14/23 History tablet (Sinemet) ferrous sulfate 325 mg (65 mg 325 mg PO Q OTHER DAY 12/18/22 07/14/23 History iron) tablet omeprazole 20 mg capsule,delayed 20 mg PO DAILYBB #90 caps 01/27/23 07/14/23 Rx release alprazolam 0.25 mg tablet (Xanax) 0.125 - 0.25 mg (0.5 - 1 x 0.25 02/05/23 07/14/23 Rx mg) PO DAILY PRN sleep #30 tabs carbidopa ER 36.25 mg-levodopa 145 1 cap PO UD 04/17/23 07/14/23 History mg capsule,extended release finasteride 5 mg tablet (Proscar) 5 mg PO QAM 04/17/23 07/14/23 History losartan 25 mg tablet 25 mg PO QAM 04/17/23 07/14/23 History rosuvastatin 20 mg tablet (Crestor) 20 mg PO QAM 04/17/23 07/14/23 History bupropion HCl 150 mg 24 hr tablet, 150 mg PO QAM 05/16/23 07/14/23 History extended release (Wellbutrin XL) ciprofloxacin HCl 500 mg tablet 500 mg PO BID #14 tabs 07/11/23 07/14/23 Rx (Cipro) Past Med/Surg History Medical History Anxiety Nausea and vomiting after administration of anesthetic agent History of COVID-19 early 2022- no hospitalized, resolved 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 Progressive supranuclear palsy Parkinsonism Follows with neurology= "patient has sub optimally controlled rigid-akinetic type Parkinson's with some response to higher doses of carbidopa levodopa" History of urethral stricture Major depressive disorder with single episode Recurrent UTI 05/12/23 currently on doxy for this Allergic rhinitis Iron deficiency anemia Dyslipidemia BPH with obstruction/lower urinary tract symptoms HTN (hypertension) GERD (gastroesophageal reflux disease) Surgical History Hx of tooth extraction Urinary anastomotic stricture 2001 and 2022 Family History Mother Depression Diabetes Other Hypertension Denies family history of Ovarian cancer Prostate cancer Myocardial infarction Breast cancer Colorectal cancer Social History Smoking Status: Never smoker Tobacco Type: Cigarettes Age Started Using Tobacco: 19; Age Quit Using Tobacco: 46; Second Hand Exposure: No; Do You Dip or Chew Tobacco: No; Hx Alcohol Use: No Hx Substance Use: No Preferred Language: Telugu Communication Ability: Effective Visual Impairment: No Limitations Fuel Technician Required: No Beliefs That Will Affect Care: None marital status: Current Living Situation: Spouse current occupational status: retired How many Children do You have: 3 Feels Safe at Home: Yes Childhood Exposure to Second-Hand Smoke: No Diet: regular caffeine: Yes Dental Care, Regularly: No Physical Activity Frequency: Does not Exercise Seatbelt Use: always Sunscreen Use: Yes Assistive Devices: Glasses and Walker Review of Systems Review of Systems: See HPI above Physical Exam Physical Exam: General: no acute distress; pleasant affect; anxious; restless legs; non-toxic appearing; well-nourished; cooperative HEENT: normocephalic, atraumatic; no scleral icterus; PERRLA w/ EOMs intact; moist mucus membrane; vision and hearing grossly intact Neck: supple; no JVD; no lymphadenopathy; trachea midline Skin: warm, dry without signs of tenting; no cyanosis; no rashes, bruising, lesions, or erythema noted CV: chest wall NTP; RRR; S1/S2 normal; no murmurs/rubs/gallops; pulses intact and symmetric at radial, DP, and PT Lungs: no acute respiratory distress; symmetrical chest wall expansion; clear breath sounds across all lung turner w/o adventitious sounds; no wheezing ABD: Soft, NTP; BS present; no rebound/guarding; no ascites; no distention : Child in place draining clear yellow urine MSK: Continuous leg tremors; no edema noted in the LEs b/l, nonerythematous Neuro: A&Ox3; normal mood and affect; slow, positive speech; no focal deficits; sensation grossly intact in the LEs b/l Results & Data Results & Data Vital Signs (Past 12 Hours) Vital Signs Temp Pulse Pulse Resp BP BP Pulse Ox 07/14/23 17:00 86 18 151/77 H 96 07/14/23 15:36 36.6 C 74 20 129/77 97 O2 Del Method 07/14/23 17:00 Room Air 07/14/23 15:36 Room Air Laboratory Results Abnormal lab results 07/14/23 Range/Units 15:51 RBC 4.67 L (4.70-6.10) M/uL Hgb 13.0 L (14.0-18.0) g/dl Hct 39.3 L (42.0-52.0) % RDW Coeff of Ana Rosa 14.9 H (11.5-14.5) % Frederick # (Auto) 1.12 H (0.11-0.59) K/uL Glucose 64 L (70-99(Fasting)) mg/dl Alkaline Phosphatase 141 H (34-104) U/L Code Status & VTE Plan Code Status Full code VTE Prophylaxis Plan VTE Prophylaxis will be ordered: Yes Supervising Physician Co-Signing Physician Notes TIM Perez Note: I personally saw and examined the patient. I verified all barr points and agree with TIM Ortiz with the following exceptions and/or additions: S-patient presents back to the ER after being called in for urine culture which grew out E. coli resistant to the oral Cipro he was on at home. He was seen in the ER on 07/10 for fever and chills and increased cloudiness in the urine and abdominal discomfort due to severe constipation. He was given an enema and had a large bowel movement and felt improved, he was sent home on oral Cipro. He currently feels improved and no further fevers. He will be admitted for IV antibiotics for resistant UTI. He does note anxiety about having catheter exchange and prefers urologist to do it and would like lorazepam prior to the procedure O- Vitals reviewed Gen: AAOx3, NAD HEENT: Anicteric sclerae, EOMI CV: RRR no mgr nl S1S2 Pulm: CTAB no wcr Abd: +BS soft NT ND no masses or hernias Ext: No edema, 2+ DP pulses Skin: No rashes, warm/dry CBC, BMP, urine culture reviewed A/T-78-yclg-old male here with complicated UTI, admission for IV antibiotics Will switch to IV ertapenem for ease of administration of once daily dosing and plan for home use after discharge for total 7 days Otherwise stable, blood cultures drawn but do not expect to be positive-follow Discussed care with at the bedside PG Care Time/CCT Total # of Minutes Spent Total Time Spent with Patient: Total time spent is greater than 50% in coordination of care (as documented) at patient's floor/unit and/or counseling patient: [place] [address] INT INP/OBS CARE 2/55MIN Patient Type Established Medical Decision Making Moderate Complexity Diagnoses Complicated urinary tract infection N39.0 History of urethral stricture Z87.448 Parkinsonism G20 Constipation K59.00 Anxiety F41.9 Major depressive disorder with single episode F32.9 HTN (hypertension) I10 GERD (gastroesophageal reflux disease) K21.9
--- NOTE | 2023-07-14 18:03 | Emergency Department Note ---
History of Present Illness General Chief Complaint: Referred by Doctor Stated Complaint: REF BY BRAYDEN, KADEN IV Time Seen by Provider: 07/14/23 16:04 History of Present Illness Provider Complaint: + abnormal lab Description of abnormal result: Positive urine culture HPI narrative: 72-year-old male with history of Parkinson's presents emergency department for positive urine culture. Patient reports she was seen in the emergency department 2 days ago. At that time he was having abdominal pain and was diagnosed with a UTI. Patient was started on Cipro. Patient was sent back to the emergency department today because his urine culture grew out E. coli which showed a lot of resistance. Patient reports that his fevers, abdominal pain and chills have improved. He currently reports no fevers chills abdominal pain nausea vomiting or diarrhea. Home Medications Medication Instructions Recorded Confirmed Type cholecalciferol (vitamin D3) 125 125 mcg PO QAM 02/05/21 07/14/23 History mcg (5,000 unit) tablet (Vitamin D3) loratadine 10 mg tablet (Claritin) 10 mg PO QAM 02/05/21 07/14/23 History carbidopa 25 mg-levodopa 100 mg 2 tab PO QID 12/18/22 07/14/23 History tablet (Sinemet) ferrous sulfate 325 mg (65 mg 325 mg PO Q OTHER DAY 12/18/22 07/14/23 History iron) tablet omeprazole 20 mg capsule,delayed 20 mg PO DAILYBB #90 caps 01/27/23 07/14/23 Rx release alprazolam 0.25 mg tablet (Xanax) 0.125 - 0.25 mg (0.5 - 1 x 0.25 02/05/23 07/14/23 Rx mg) PO DAILY PRN sleep #30 tabs carbidopa ER 36.25 mg-levodopa 145 1 cap PO UD 04/17/23 07/14/23 History mg capsule,extended release finasteride 5 mg tablet (Proscar) 5 mg PO QAM 04/17/23 07/14/23 History losartan 25 mg tablet 25 mg PO QAM 04/17/23 07/14/23 History rosuvastatin 20 mg tablet (Crestor) 20 mg PO QAM 04/17/23 07/14/23 History bupropion HCl 150 mg 24 hr tablet, 150 mg PO QAM 05/16/23 07/14/23 History extended release (Wellbutrin XL) ciprofloxacin HCl 500 mg tablet 500 mg PO BID #14 tabs 07/11/23 07/14/23 Rx (Cipro) Allergies Allergy/AdvReac Type Severity Reaction Status Date / Time No Known Allergies Allergy Verified 07/14/23 16:31 Past Med/Surg History Medical History Nausea and vomiting after administration of anesthetic agent History of COVID-19 early 2022- no hospitalized, resolved 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 Progressive supranuclear palsy Parkinsonism Follows with neurology= "patient has sub optimally controlled rigid-akinetic type Parkinson's with some response to higher doses of carbidopa levodopa" History of urethral stricture Major depressive disorder with single episode Recurrent UTI 05/12/23 currently on doxy for this Allergic rhinitis Iron deficiency anemia Dyslipidemia BPH with obstruction/lower urinary tract symptoms HTN (hypertension) GERD (gastroesophageal reflux disease) Surgical History Hx of tooth extraction Urinary anastomotic stricture 2001 and 2022 Family History Mother Depression Diabetes Other Hypertension Denies family history of Ovarian cancer Prostate cancer Myocardial infarction Breast cancer Colorectal cancer Social History Smoking Status: Never smoker Tobacco Type: Cigarettes Age Started Using Tobacco: 19; Age Quit Using Tobacco: 46; Second Hand Exposure: No; Do You Dip or Chew Tobacco: No; Hx Alcohol Use: No Hx Substance Use: No Preferred Language: Macanese Communication Ability: Effective Visual Impairment: No Limitations Supervisor Phosphatic Fertilizer Required: No Beliefs That Will Affect Care: None marital status: Current Living Situation: Spouse current occupational status: retired How many Children do You have: 3 Feels Safe at Home: Yes Childhood Exposure to Second-Hand Smoke: No Diet: regular caffeine: Yes Dental Care, Regularly: No Physical Activity Frequency: Does not Exercise Seatbelt Use: always Sunscreen Use: Yes Assistive Devices: Glasses and Walker Physical Exam 2 Vital Signs: Vital Signs - 24 hr 07/14/23 15:36 07/14/23 17:00 Temperature 36.6 C Temperature Source Temporal Artery Sc an Pulse Rate 74 Pulse Rate [Apical ] 86 Respiratory Rate 20 18 Respiratory Effort / Characteristics Non-Labored Sponta neous Respiratory Depth Normal Respiratory Patter n Regular Blood Pressure 129/77 Blood Pressure [Ri ght Arm] 151/77 H Blood Pressure Brenda n 94 Blood Pressure Brenda n [Right Arm] 101 Blood Pressure Pos ition [Right Arm] Sitting Pulse Oximetry 97 96 Oxygen Delivery Me thod Room Air Room Air Sepsis Recent Feve r Within 48 Hours No Sepsis New/Unexpla ined Change in Men emilie Status N/A Sepsis Action Take n by Nursing No Action Required Physical Exam: Physical Exam GENERAL: oriented to person, place, and time. appears well-developed and well- nourished. HENT: Exam performed. - Head: Normocephalic and atraumatic. EYES: Conjunctivae and EOM are normal. Right eye exhibits no discharge. Left eye exhibits no discharge. No scleral icterus. NECK: Normal range of motion. Neck supple. No JVD present. CV: Normal rate, regular rhythm, normal heart sounds and intact distal pulses. There is no peripheral edema. Palpable radial pulses bue. PULM/CHEST: Effort normal and breath sounds normal. No respiratory distress. No stridor. no wheezes. no rales. ABD: The abdomen is soft. There is no tenderness. NEURO: Motor and sensation grossly intact. SKIN: Skin is warm and dry. He is not diaphoretic. PSYCH: normal mood and affect. Behavior is normal. Judgment and thought content normal. Course Course 1604: The patient was evaluated in room B3. A complete history and physical exam was performed Administered Medications Discontinued Medications Cefepime HCl (Maxipime) 2,000 mg in 20 mls @ 5 mls/min IV NOW STA; Protocol Stop: 07/14/23 16:08 Last Admin: 07/14/23 16:44 Dose: 5 mls/min Documented By: YENI Medical Decision Making Medical Records Attestation: I reviewed the patient's medical records. External medical records reviewed. Patient was seen in the emergency department on July 11, 2023. At that time a urine was collected and the culture showed E. coli which was intermediate resistant to all antibiotics except cefepime ertapenem gentamicin meropenem Zosyn or Macrobid. Laboratory Data Attestation: I reviewed the patient's lab results. 07/14/23 15:51 07/14/23 15:51 Lab Results 07/14/23 07/14/23 Range/Units 15:51 16:25 WBC 8.69 (4.8-10.8) K/ul RBC 4.67 L (4.70-6.10) M/uL Hgb 13.0 L (14.0-18.0) g/dl Hct 39.3 L (42.0-52.0) % MCV 84.2 (80.0-100.0) fL MCH 27.8 (25.0-34.0) pg MCHC 33.1 (32.0-36.0) g/dL RDW Std Deviation 44.5 (36.4-46.3) fL RDW Coeff of Ana Rosa 14.9 H (11.5-14.5) % Plt Count 257 (130-400) K/uL MPV 10.7 (9.4-12.4) fL Immature Gran % (Auto) 0.8 % Neut % (Auto) 59.8 % Lymph % (Auto) 22.6 % Irion % (Auto) 12.9 % Eos % (Auto) 3.3 % Baso % (Auto) 0.6 % Neut # (Auto) 5.20 (1.40-6.50) K/uL Lymph # (Auto) 1.96 (1.20-3.40) K/uL Irion # (Auto) 1.12 H (0.11-0.59) K/uL Eos # (Auto) 0.29 (0.00-0.50) K/uL Baso # (Auto) 0.05 (0.00-0.20) K/uL Immature Gran # (Auto) 0.07 (0.01-0.20) K/uL Sodium 139 (136-145) mmol/L Potassium 4.2 (3.5-5.1) mmol/L Chloride 106 (98-107) mmol/L Carbon Dioxide 24 (21-32) mmol/L Anion Gap 9 (3-11) BUN 12 (6-23) mg/dl Creatinine 0.99 (0.6-1.4) mg/dl Est Cr Clr Drug Dosing Not Reportable Est GFR ( Amer) 88.4 ml/min Est GFR (Non-Af Amer) 76.3 ml/min BUN/Creatinine Ratio 12.1 (10-20) Glucose 64 L (70-99(Fasting)) mg/dl Lactate 0.9 (0.4-2.0) mmol/L Calcium 9.4 (8.6-10.3) mg/dl Total Bilirubin 0.3 (0.2-1.0) mg/dl AST 36 (13-39) U/L ALT 7 (7-52) U/L Alkaline Phosphatase 141 H (34-104) U/L Total Protein 7.2 (6.0-8.3) gm/dl Albumin 4.1 (3.4-5.0) gm/dl Globulin 3.1 (2.5-4.0) gm/dl Albumin/Globulin Ratio 1.3 (0.9-2) MDM Narrative Cardiac monitoring: An order was placed for continuous cardiac monitoring. The monitor shows a rate of 90 with sinus rhythm interpreted by me Vital signs stable. Labs and imaging within normal limits. Despite this, given the patient's E. coli which is resistant to most antibiotics and his having a white count few days ago, it is thought that the patient would be best served by being admitted for IV antibiotics. Discussed case with [facility] pharmacy who also agrees. Spoke with Dr. [facility] hospitalist to evaluate the patient for admission. Impression & Plan Recurrent UTI Discharge Plan Visit Data Chief Complaint: Referred by Doctor Stated Complaint: REF BY DOC, NEEDS IV ED Provider: Odin Sorensen Discharge Problem: Recurrent UTI Patient Disposition: Being Evaluated by Hospitalist Forms Stand Alone Forms: [facility] Prescriptions Prescriptions: No Action carbidopa-levodopa [Sinemet] 25-100 mg tablet 2 tab PO QID omeprazole 20 mg capsule,delayed release(DR/EC) 20 mg PO DAILYBB Qty: 90 1RF alprazolam [Xanax] 0.25 mg tablet 0.125 - 0.25 mg PO DAILY PRN (Reason: sleep) Qty: 30 0RF losartan 25 mg tablet 25 mg PO QAM finasteride [Proscar] 5 mg tablet 5 mg PO QAM rosuvastatin [Crestor] 20 mg tablet 20 mg PO QAM carbidopa-levodopa 36.25-145 mg Capsule, Extended Release 1 cap PO UD Rx Instructions: ONLY TAKES EXTENDEND RELEASE AT 10 PM. loratadine [Claritin] 10 mg Tablet 10 mg PO QAM cholecalciferol (vitamin D3) [Vitamin D3] 125 mcg (5,000 unit) Tablet 125 mcg PO QAM ferrous sulfate 325 mg (65 mg iron) tablet 325 mg PO Q OTHER DAY bupropion HCl [Wellbutrin XL] 150 mg tablet extended release 24 hr 150 mg PO QAM ciprofloxacin HCl [Cipro] 500 mg tablet 500 mg PO BID Qty: 14 0RF Referrals Referrals: Teresa Martin MD [Primary Care Provider] -
[2023-07-14] MEDS: ALPRAZolam 0.25 MG TABLET PO ONE (18:24)
[2023-07-14 19:54] LABS: Appearance Urine Cloudy (Clear); Bacteria Urine Automated Negative (Negative); Bilirubin Urine Negative (Negative); Blood Urine Negative (Negative); Color Urine Yellow; Epithelial Cell Urine Auto 20-30 /lpf (0-5); Glucose Urine UA Negative (Negative); Ketones Urine 1+ (Negative); Leukocyte Esterase Urine 3+ (Negative); Nitrite Urine Positive (Negative); Protein Urine Negative (Negative); RBC Urine Automated 0-4 /hpf (0-4); Specific Gravity Urine 1.013 (1.000-1.030); Urobilinogen Urine Negative (Negative); WBC Urine Automated >30 /hpf (0-5); pH Urine 5.5 (4.5-7.5)
--- NOTE | 2023-07-14 20:03 | Urology Consultation ---
Date of Consultation July 14, 2023 Assessment & Plan (1) Complicated urinary tract infection: Patient has been admitted on the hospitalist service. Antibiotics in the form of cefepime have been initiated for his recent urine culture and this should continue Medicine has requested a Rutherford catheter exchange be performed due to setting of his urinary tract infection. Due to patient's recent urologic procedure and difficulties with placing catheters in the past we will plan on performance during daylight hours on 07/15/2023 Additional recommendations be forthcoming based on his clinical course as unfolds History of Present Illness Reason for Consultation: Rutherford catheter exchange History of Present Illness This a 72-year-old male who underwent a recent urologic procedure with Dr. Leblnac. On 05/16/2023 the patient underwent a cystoscopy with urethral dilatation and an internal urethra ostomy. The patient underwent a voiding trial on 05/20/2023. Patient ultimately presented to the emergency department on 05/23/2023 secondary to inability urinate and had a Rutherford catheter replaced. He underwent a second voiding trial in 05/30/2023. He had to have Rutherford catheter r eplaced on 06/02/2023. Should be noted that the regular Rutherford catheter was unable to placed and a coud catheter had to be placed. Patient ultimately had a Rutherford catheter exchange in the office performed on 07/02/2023. The patient was seen in the emergency department on 07/11/2023 secondary to urinary tract infection the patient was discharged home on oral Cipro. Subsequent urine culture did reveal that patient had an E. coli urinary tract infection with multiple resistances, specifically resistance to Cipro. He was then advised to come to the emergency department for intravenous antibiotics and ultimately admission. At the present time the patient is doing well. He denies any fevers, shakes, or chills. He notes that his Rutherford catheter is working properly and he does not have any difficulties with this. Since arrival to the emergency department that he had to has had labs which I reviewed. CBC revealed white blood cell count platelet count were normal. Hemoglobin and hematocrit are 13.0 and 39.3. Chemistry profile showed sodium and potassium along with the BUN and creatinine were normal. At the time of my interview he was resting comfortably in bed he was in no distress. Allergies Allergy/AdvReac Type Severity Reaction Status Date / Time No Known Allergies Allergy Verified 07/14/23 16:31 Home Medications Medication Instructions Recorded Confirmed Type cholecalciferol (vitamin D3) 125 125 mcg PO QAM 02/05/21 07/14/23 History mcg (5,000 unit) tablet (Vitamin D3) loratadine 10 mg tablet (Claritin) 10 mg PO QAM 02/05/21 07/14/23 History carbidopa 25 mg-levodopa 100 mg 2 tab PO QID 12/18/22 07/14/23 History tablet (Sinemet) ferrous sulfate 325 mg (65 mg 325 mg PO Q OTHER DAY 12/18/22 07/14/23 History iron) tablet omeprazole 20 mg capsule,delayed 20 mg PO DAILYBB #90 caps 01/27/23 07/14/23 Rx release alprazolam 0.25 mg tablet (Xanax) 0.125 - 0.25 mg (0.5 - 1 x 0.25 02/05/23 07/14/23 Rx mg) PO DAILY PRN sleep #30 tabs carbidopa ER 36.25 mg-levodopa 145 1 cap PO UD 04/17/23 07/14/23 History mg capsule,extended release finasteride 5 mg tablet (Proscar) 5 mg PO QAM 04/17/23 07/14/23 History losartan 25 mg tablet 25 mg PO QAM 04/17/23 07/14/23 History rosuvastatin 20 mg tablet (Crestor) 20 mg PO QAM 04/17/23 07/14/23 History bupropion HCl 150 mg 24 hr tablet, 150 mg PO QAM 05/16/23 07/14/23 History extended release (Wellbutrin XL) ciprofloxacin HCl 500 mg tablet 500 mg PO BID #14 tabs 07/11/23 07/14/23 Rx (Cipro) Patient History Medical History Anxiety Nausea and vomiting after administration of anesthetic agent History of COVID-19 early 2022- no hospitalized, resolved 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 Progressive supranuclear palsy Parkinsonism Follows with neurology= "patient has sub optimally controlled rigid-akinetic type Parkinson's with some response to higher doses of carbidopa levodopa" History of urethral stricture Major depressive disorder with single episode Recurrent UTI 05/12/23 currently on doxy for this Allergic rhinitis Iron deficiency anemia Dyslipidemia BPH with obstruction/lower urinary tract symptoms HTN (hypertension) GERD (gastroesophageal reflux disease) Surgical History Hx of tooth extraction Urinary anastomotic stricture 2001 and 2022 Family History Mother Depression Diabetes Other Hypertension Denies family history of Ovarian cancer Prostate cancer Myocardial infarction Breast cancer Colorectal cancer Social History Smoking Status: Never smoker Tobacco Type: Cigarettes Age Started Using Tobacco: 19; Age Quit Using Tobacco: 46; Second Hand Exposure: No; Do You Dip or Chew Tobacco: No; Hx Alcohol Use: No Hx Substance Use: No Preferred Language: [place] Communication Ability: Effective Visual Impairment: No Limitations Nurse Sane Required: No Beliefs That Will Affect Care: None marital status: Current Living Situation: Spouse current occupational status: retired How many Children do You have: 3 Feels Safe at Home: Yes Childhood Exposure to Second-Hand Smoke: No Diet: regular caffeine: Yes Dental Care, Regularly: No Physical Activity Frequency: Does not Exercise Seatbelt Use: always Sunscreen Use: Yes Assistive Devices: Glasses and Walker Review of Systems Constitutional: no fever and no chills Gastrointestinal: no nausea and no vomiting Genitourinary: + as per Subjective / HPI Physical Exam Constitutional: WD/WN, vitals as above Respiratory: no labored breathing Cardiovascular: Rate/Rhythm: regular rate and regular rhythm Gastrointestinal (Abdomen): Soft and nontender Genitourinary: Patient had a Rutherford catheter leg bag in place that was draining clear-colored urine and appeared patent. Results & Data Vital Signs (Past 12 Hours) Vital Signs Temp Pulse Pulse Resp BP BP Pulse Ox 07/14/23 19:10 66 22 123/69 98 07/14/23 17:00 86 18 151/77 H 96 07/14/23 15:36 36.6 C 74 20 129/77 97 O2 Del Method 07/14/23 19:10 Room Air 07/14/23 17:00 Room Air 07/14/23 15:36 Room Air PG Care Time/CCT Total # of Minutes Spent Total Time Spent with Patient: Total time spent is greater than 50% in coordination of care (as documented) at patient's floor/unit and/or counseling patient: Coding Level of Care Code 10390 INT INP/OBS CARE Diagnoses Complicated urinary tract infection N39.0
[2023-07-14] MEDS: CARBIDOPA/LEVODOPA 25/100MG TAB PO STA (20:37)
[2023-07-14] MEDS ORDERED: ACETAMINOPHEN 325 MG TAB PO PRN (22:06)
[2023-07-14] MEDS: POLYETHYLENE (MIRALAX) 17 GM PACK PO SCH (23:35)
[2023-07-14] MEDS: CARBIDOPA/LEVODOPA 50/200MG EXT REL TAB PO SCH (23:45)
[2023-07-15] MEDS: Patient's HEIGHT &/or WEIGHT Needed ONE (00:13)
[2023-07-15] MEDS: MELATONIN 3 MG TAB PO PRN (00:16)
[2023-07-15] MEDS: ALPRAZolam 0.25 MG TABLET PO PRN (00:16)
[2023-07-15] MEDS: ERTAPENEM SODIUM 1,000 MG in SYRINGE 0 ML IV SCH (01:03)
[2023-07-15] MEDS: ENOXAPARIN INJ 40 MG/0.4 ML SYR SQ SCH (01:04)
[2023-07-15] MEDS: PANTOprazole 40 MG TAB PO SCH (06:07)
[2023-07-15 07:27] LABS: Basophils # (auto) 0.05 K/uL (0.00-0.20); Basophils % (auto) 0.8 %; Eosinophils # (auto) 0.22 K/uL (0.00-0.50); Eosinophils % (auto) 3.4 %; Hematocrit (blood only) 35.8 % (42.0-52.0); Hemoglobin 11.8 g/dl (14.0-18.0); Immature Granulocytes # (auto) 0.06 K/uL (0.01-0.20); Immature Granulocytes % (auto) 0.9 %; Lymphocytes # (auto) 1.96 K/uL (1.20-3.40); Lymphocytes % (auto) 30.4 %; Mean Corpuscular Hemoglobin 27.8 pg (25.0-34.0); Mean Corpuscular Volume 84.2 fL (80.0-100.0); Mean Platelet Volume 9.8 fL (9.4-12.4); Monocytes # (auto) 0.68 K/uL (0.11-0.59); Monocytes % (auto) 10.6 %; Neutrophils # (auto) 3.47 K/uL (1.40-6.50); Neutrophils % (auto) 53.9 %; Platelet Count 195 K/uL (130-400); RDW Coefficient of Variation 14.7 % (11.5-14.5); RDW Standard Deviation 44.3 fL (36.4-46.3); Red Blood Count 4.25 M/uL (4.70-6.10); White Blood Count 6.44 K/ul (4.8-10.8)
[2023-07-15 07:45] LABS: BUN Creatinine Ratio 12.1 (10-20); Calcium 9.1 mg/dl (8.6-10.3); Creatinine Clr Calc Pharmacy 66.2 ml/min; Est GFR (African American) 88.4 ml/min; Est GFR (Non-African American) 76.3 ml/min; Potassium 3.8 mmol/L (3.5-5.1)
[2023-07-15] MEDS: CARBIDOPA/LEVODOPA 25/100MG TAB PO SCH (08:05)
[2023-07-15] MEDS: LOSARTAN POTASSIUM 25 MG TAB PO SCH (08:06)
[2023-07-15] MEDS: FINASTERIDE 5 MG TAB PO SCH (08:06)
[2023-07-15] MEDS: buPROPion XL 150 MG TABCR PO SCH (08:06)
[2023-07-15] MEDS: LORATADINE 10 MG TAB PO SCH (08:06)
[2023-07-15] MEDS: ROSUVASTATIN CALCIUM 20 MG TAB PO SCH (08:07)
[2023-07-15] MEDS: LORazepam 0.5 MG in SYRINGE 0.25 ML IV PRN (08:22)
--- NOTE | 2023-07-15 09:11 | Urology Progress Note ---
Date of Service July 15, 2023 Assessment & Plan (1) Complicated urinary tract infection: (2) Acute urinary retention: (3) Indwelling Rutherford catheter present: Plan: Follow-up of complicated UTI, Rutherford catheter exchange Patient afebrile and hemodynamically stable Rutherford catheter was exchanged at bedside without difficulty, patient tolerated well and there were no complications noted Urine and blood cultures are pending He is on Ertapenem per previous urine culture on 07/10 Continue with antibiotics Continue supportive care Maintain Rutherford catheter Patient can follow-up as scheduled with urology will sign off, contact our service if there are any additional questions or concerns Admission and Anticipated Discharge Date Admission Date: July 14, 2023 Subjective Patient seen and examined at bedside He is awake and resting comfortably in bed Denies pain Rutherford patent and draining clear yellow urine Denies fever or chills Urology was asked to do catheter exchange this morning Patient was given prn Ativan from RN for prior to exchange per his request Review of Systems Constitutional: as per Subjective / HPI Genitourinary: + as per Subjective / HPI Physical Exam Constitutional: well developed and well nourished; no acute distress Respiratory: normal respiratory effort; no respiratory distress and no labored breathing Gastrointestinal (Abdomen): Inspection/Auscultation: abdomen normal to inspection Musculoskeletal: Head/Neck/Chest: normocephalic Neurologic: moves all extremities and awake Psychiatric: Orientation: alert and oriented x 3 Genitourinary: Rutherford patent and draining clear yellow urine. Rutherford balloon deflated and catheter removed. Using sterile technique, a well lubricated 18F coude was inserted per urethra. Balloon was inflated to 10 mL. Patient tolerated procedure well. Catheter was draining appropriately at completion. Results & Data Vital Signs (Past 12 Hours) Vital Signs Temp Pulse Pulse Resp BP BP Pulse Ox 07/15/23 08:00 07/15/23 07:24 36.5 C 63 16 148/81 H 95 07/14/23 22:00 36.6 C 69 18 157/71 H 98 O2 Del Method 07/15/23 08:00 Room Air 07/15/23 07:24 Room Air 07/14/23 22:00 Room Air PG Care Time/CCT Total # of Minutes Spent Total Time Spent with Patient: Total time spent is greater than 50% in coordination of care (as documented) at patient's floor/unit and/or counseling patient: Coding Level of Care Code 83329 SUB INP/OBS CARE Diagnoses Complicated urinary tract infection N39.0 Acute urinary retention R33.8 Indwelling Rutherford catheter present Z97.8
--- NOTE | 2023-07-15 12:05 | Discharge Summary ---
Discharge Summary Date of Service July 15, 2023 Notes For Next Care Provider Medication Changes From Visit Added ertapenem 1000mg IV q24h x 5 more days Discontinued Cipro Added Miralax bid Admission HPI Per Admitting Provider Sanjay is a 72-year-old male with PMH of Parkinson's disease, recurrent UTIs, urethral stricture (indwelling child), IRMA, HTN, GERD, dyslipidemia, and B12 deficiency. Patient initially presented on Monday 07/10 for acute UTI and was sent home on ciprofloxacin, however his urine culture resulted today on 07/13 with pedraza-resistant E. coli and he was told to come back to the ED for IV antibiotics. Patient notes he has been having chills at home, and that he took Tylenol on Friday. Clinically he denies all other urinary symptoms such as burning sensation in the groin, suprapubic pain, or blood/pus/purulent drainage in his Child or Child bag. He does have a Child catheter in place for a stricture surgery. Patient reports his catheter was last changed at Dr. Leblanc's office on June. He denies smoking or alcohol use. No supplemental oxygen use at home or CPAP. Patient reports that he did not take any of his regular morning medications besides his Sinemet (last taken at 1645, with next dose scheduled at 1999); patient takes an extended release dose around 10 PM each night. Patient reports she has been taking ciprofloxacin since his ED visit on Friday. He also notes he has been taking MiraLAX twice daily for constipation. Patient is mildly hypertensive at 151/77 at time admission; vitals otherwise stable. ED course: Cefepime 2000 mg IV ROS: Patient endorses chills and constipation. Patient denies fever, night-sweats, dizziness, lightheadedness, CP, chest palpitations, SOB, abdominal pain, N/V/D, urinary s/s, suprapubic pain, burning sensation in the groin, or numbness/tingling in the legs. Principal Dx & Hospital Course #1 = Principal Diagnosis (1) Complicated urinary tract infection: Patient presented to the ED on 07/10 for an acute UTI with fever, abdominal pain, increased cloudiness in urine, chronic Child--> was discharged on ciprofloxacin He returned on 07/13 after his Urine Cx revealed pedraza-resistance to p.o. antibiotics and he was called to return to the ER Indwelling Child catheter managed by Urology as an outpt--> exchanged while here on 07/15/23 Clinically, patient denies urinary symptoms at time of admission Cefepime 2000 mg IV given in the ED and then transitioned to ertapenem 1 g IV daily with a plan to continue this at [facility] as an outpt after discharge for a total of 7 days-needs 5 more days starting 07/15 No evidence of sepsis-no fevers, no leukocytosis, and vitals otherwise normal. He is doing well and stable for discharge to home US-guided peripheral IV placed 07/15/23 (2) History of urethral stricture: Chronic indwelling Child,exchanged 07/14 as above Continue finasteride Daily Child catheter care (3) Parkinsonism: Continue levodopa 4 times daily, as well as extended release dose at nighttime patient and felt his gait was at baseline at time of discharge (4) Constipation: On 07/10 showed moderate constipation-was given soap suds enema at that time and had large BM, relief of constipation, has been moving bowels daily since then Continue MiraLAX BID at home (5) Anxiety: Alprazolam 0.25mg p.o. HS as needed for anxiety (6) Major depressive disorder with single episode: Continue bupropion (7) HTN (hypertension): Continue losartan BPs controlled (8) GERD (gastroesophageal reflux disease): Continue PPI Plan Disposition:dc to home Full code VTE PPx: Lovenox 40 mg SQ q24h Discharge Exam Constitutional WD/WN, vitals as above Respiratory normal respiratory effort, lungs clear to auscultation Cardiovascular RRR, no murmur, no edema Gastrointestinal (Abdomen) normal bowel sounds, soft, nontender, no hepatosplenomegaly Neurologic masked facies, rigidity in muscles, slow movement Psychiatric A+Ox3, euthymic affect Genitourinary Child in place with clear ritu [place]fe Updated Medication List Medication Instructions Recorded Confirmed Type cholecalciferol (vitamin D3) 125 125 mcg PO QAM 02/05/21 07/14/23 History mcg (5,000 unit) tablet (Vitamin D3) loratadine 10 mg tablet (Claritin) 10 mg PO QAM 02/05/21 07/14/23 History carbidopa 25 mg-levodopa 100 mg 2 tab PO QID 12/18/22 07/14/23 History tablet (Sinemet) ferrous sulfate 325 mg (65 mg 325 mg PO Q OTHER DAY 12/18/22 07/14/23 History iron) tablet omeprazole 20 mg capsule,delayed 20 mg PO DAILYBB #90 caps 01/27/23 07/14/23 Rx release alprazolam 0.25 mg tablet (Xanax) 0.125 - 0.25 mg (0.5 - 1 x 0.25 02/05/23 07/14/23 Rx mg) PO DAILY PRN sleep #30 tabs carbidopa ER 36.25 mg-levodopa 145 1 cap PO UD 04/17/23 07/14/23 History mg capsule,extended release finasteride 5 mg tablet (Proscar) 5 mg PO QAM 04/17/23 07/14/23 History losartan 25 mg tablet 25 mg PO QAM 04/17/23 07/14/23 History rosuvastatin 20 mg tablet (Crestor) 20 mg PO QAM 04/17/23 07/14/23 History bupropion HCl 150 mg 24 hr tablet, 150 mg PO QAM 05/16/23 07/14/23 History extended release (Wellbutrin XL) ciprofloxacin HCl 500 mg tablet 500 mg PO BID #14 tabs 07/11/23 07/14/23 Rx (Cipro) ertapenem 1 gram solution for 1 g IV DAILY #5 ea 07/15/23 Rx injection Hospital Stay Data Consultations 07/14/23 17:04 ED Decision to Admit Stat 07/14/23 19:34 Consult Urology Routine Pending Results Patient Have Any Pending Studies at Discharge: Yes (repeat urine culture) Discharge Instructions Given to Patient (Per Discharging Provider) Please continue the ertapenem 1000mg IV once daily x 5 more days for your UTI. Your IV antibiotics will be administered at the [facility] (building behind the hospital, on first floor of the cancer center). Your first appointment is at 7:30 AM on 07/16/23. Once the antibiotics are completed, they will remove your IV. Total Time Total Time Spent Total Time Spent (In Minutes): 35 min Total Time Includes: Examination of the Patient, Discharge Planning, Medication Reconciliation and Communication With Other Providers (Vacuum Filter Operator) Coding Level of Care Code 49844 INP/OBS DISCH >30 MIN Diagnoses Complicated urinary tract infection N39.0 History of urethral stricture Z87.448 Parkinsonism G20 Constipation K59.00 Anxiety F41.9 Major depressive disorder with single episode F32.9 HTN (hypertension) I10 GERD (gastroesophageal reflux disease) K21.9
[2023-07-15] MEDS ORDERED: ALPRAZolam 0.25 MG TABLET PO PRN (18:00)
== END 2023-07-15 15:24 | disposition home or self-care (01) ==
LOC: 3N 15:11 → ED 15:11 → 3N 21:26

== ENCOUNTER 2024-10-21 08:48 | Inpatient (IN) ==
--- NOTE | 2024-10-21 09:38 | Emergency Department Note ---
Impression & Plan Parkinsonism, Indwelling Rutherford catheter present, Complicated urinary tract infection ED Provider Note NAME: PAUL VALDEZ AGE: 74 SEX: M : 1950 ARRIVES VIA: Walk-In INFORMANT: Patient ED PROVIDER(S): Thang Brewer MD CHIEF COMPLAINT: Fever, generalized weakness, body aches. PLAN: Disposition: Admit MEDICAL DECISION MAKING: The patient is a pleasant 74-year-old gentleman with a past medical history of Parkinson disease, history of neurogenic bladder with chronic indwelling Rutherford catheter, recurrent urinary infections who presents to the emergency department via walk-in accompanied by his for evaluation of generalized weakness with bodyaches for the past couple of days and fever to 101 early this morning where he took acetaminophen prior to arrival. Patient denies any cough or congestion. He denies nausea or vomiting. He reports that his catheter was replaced approximately 10 days ago. On evaluation the patient is no acute distress, afebrile with stable vital signs. He appears clinically dry. The patient's Rutherford catheter is draining somewhat cloudy darker urine. Rutherford catheter was exchanged and urine sample obtained from new catheter. WBC, hemoglobin and platelets within normal limits. Chemistry without metabolic acidosis. Electrolytes and LFTs unremarkable. Lactic acid 0.9, within normal limits. Procalcitonin is not elevated. High-sensitivity troponin 3.6, within normal limits. Lyme screen was negative. Respiratory BioFire was negative. Urine sample obtained following Rutherford catheter exchange demonstrates 1+ leuk esterase and otherwise no findings that are suggestive of infection. CT abdomen pelvis was performed and demonstrates bilateral collecting system dilatation which is improved compared to prior imaging in April 2023 however urothelial thickening of the collecting systems and bladder wall thickening are suggestive of infection. Minimal dependent hyperdense material within the bladder. Tiny calculi or trace clot is considered. While urine analysis is not highly suggestive of infection given CT findings which may suggest upper infection in the setting of the patient's history of resistant organisms and reported fever and concern for complicated urinary infection blood cultures were obtained and treatment initiated with IV Zosyn empirically. Patient and agree with plan for admission for further management given patient's symptoms and history of complicated urinary infection. Case was discussed with Dr. Holt, [facility] [place], who will evaluate the patient for admission. Triage Nursing notes reviewed and agree them. Prior/external medical records reviewed Vital Signs: reviewed Differential diagnosis: Viral syndrome, otitis, pharyngitis, pneumonia, influenza, meningitis, urinary tract infection, sepsis, bacteremia, as well as other pathologies. ER treatment provided: See below. Diagnostics interpreted by me: ECG: Normal sinus rhythm, 62 bpm, no ectopy, no overt ST elevation or depression, QTc 420, QRS 82. Cardiac Monitoring: An order for continuous cardiac monitoring was placed and demonstrated Normal sinus rhythm, 62 bpm, no ectopy, Laboratory studies: See below Imaging studies: See below Consultation(s): Dr. Holt, [facility] [place] HPI: Per MDM. ROS: See above HPI for pertinent positives & negatives. A total of 10 systems reviewed and were otherwise negative. VITALS:See Below PHYSICAL EXAMINATION: GENERAL: Awake, alert, ill-appearing, in no distress HENT: Normocephalic, atraumatic. Oropharynx with dry mucous membranes and otherwise unremarkable. EYES: Normal conjunctiva. Sclera non-icteric. NECK: Supple. No nuchal rigidity. FROM. No JVD. RESPIRATORY: Clear to auscultation. CARDIAC: Regular rate, normal rhythm. Extremities warm and well perfused. Pulses equal. ABDOMEN: Soft, non-distended. No tenderness to palpation. No rebound or guarding. No masses. : Indwelling Rutherford catheter present with external exam unremarkable. MUSCULOSKELETAL: Chest examination reveals no tenderness. The back is symmetrical on inspection without obvious abnormality. There is no CVA tenderness to palpation. No joint edema. LOWER EXTREMITIES: Calves are equal size bilaterally and non-tender. No edema. No discoloration. NEURO: Masked facies with slight cogwheel rigidity and generalized weakness at baseline for Parkinson's. No focal extremity weakness. SKIN: No rash or jaundice noted. 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 Iron deficiency anemia Vitamin D deficiency Allergic rhinitis Recurrent UTI 05/12/23 currently on doxy for this Major depressive disorder with single episode History of urethral stricture Parkinsonism (Acute) Follows with neurology= "patient has sub optimally controlled rigid-akinetic type Parkinson's with some response to higher doses of carbidopa levodopa" Progressive supranuclear palsy Medical History Constipation Nausea and vomiting after administration of anesthetic agent History of COVID- early 2022- no hospitalized, resolved Surgical History Hx of tooth extraction Urinary anastomotic stricture 2001 and 2022 Family History Mother Depression Diabetes Other Hypertension Denies family history of Ovarian cancer Prostate cancer Myocardial infarction Breast cancer Colorectal cancer Social History Smoking Status: Never smoker Tobacco Type: Cigarettes Age Started Using Tobacco: 19; Age Quit Using Tobacco: 46; packs per day: 1; Second Hand Exposure: No; Do You Dip or Chew Tobacco: No; Hx Alcohol Use: No Hx Substance Use: No Preferred Language: Lithuanian Communication Ability: Effective Visual Impairment: No Limitations Renal Social Worker Required: No Beliefs That Will Affect Care: None marital status: Current Living Situation: Spouse current occupational status: retired How many Children do You have: 3 Feels Safe at Home: Yes Childhood Exposure to Second-Hand Smoke: No Diet: regular caffeine: Yes Dental Care, Regularly: No Physical Activity Frequency: Does not Exercise Seatbelt Use: always Sunscreen Use: Yes Assistive Devices: Glasses Allergies Allergies Allergy/AdvReac Type Severity Reaction Status Date / Time No Known Allergies Allergy Verified 07/15/24 13:00 Home Meds Home Medications Medication Instructions Recorded Confirmed cholecalciferol (vitamin D3) 125 125 mcg PO QAM 02/05/21 10/21/24 mcg (5,000 unit) tablet (Vitamin D3) loratadine 10 mg tablet (Claritin) 10 mg PO QAM 02/05/21 10/21/24 carbidopa 25 mg-levodopa 100 mg 2.5 tab PO QID 12/18/22 10/21/24 tablet (Sinemet) ferrous sulfate 325 mg (65 mg 325 mg PO Q OTHER DAY 08/16/23 06/19/25 iron) tablet carbidopa ER 36.25 mg-levodopa 145 1 cap PO BID 04/17/23 10/21/24 mg capsule,extended release Previous Rx's Medication Instructions Recorded ondansetron 4 mg disintegrating 4 mg PO Q6H PRN nausea and 11/04/23 tablet vomiting #10 tabs rosuvastatin 20 mg tablet 20 mg PO QAM #90 tabs 12/04/23 losartan 25 mg tablet 25 mg PO QAM #90 tabs 01/22/24 oxybutynin chloride 5 mg tablet 5 mg PO BID PRN bladder spasms #20 05/20/24 tabs alprazolam 0.25 mg tablet (Xanax) 0.125 - 0.25 mg (0.5 - 1 x 0.25 07/07/24 mg) PO HS PRN sleep #30 tabs bupropion HCl 300 mg 24 hr tablet, 450 mg (1.5 x 300 mg) PO QAM #90 07/14/24 extended release tabs omeprazole 20 mg capsule,delayed 20 mg PO DAILYBB #90 caps 07/15/24 release Results & Data (ED) Vital Signs Vital Signs - 24 hr 10/21/24 08:53 10/21/24 09:18 10/21/24 09:20 Temperature 36.4 C L Temperature Source Oral Pulse Rate 66 64 Pulse Rate [Right Finger] Pulse Rate from SpO2 Sensor Respiratory Rate 18 21 Respiratory Effort / Characteristics Non-Labored Spontaneous Respiratory Depth Normal Blood Pressure 138/74 140/81 Blood Pressure [Right Arm] Blood Pressure Mean 95 111 Blood Pressure Mean [Right Arm] Blood Pressure Position Sitting Pulse Oximetry 97 Oxygen Delivery Method Room Air Sepsis Recent Fever Within 48 Hours Yes Sepsis New/Unexplained Change in Mental Status No Sepsis Action Taken by Nursing No Action Required 10/21/24 09:20 10/21/24 09:20 10/21/24 09:21 Temperature Temperature Source Pulse Rate 62 Pulse Rate [Right Finger] Pulse Rate from SpO2 Sensor 62 Respiratory Rate 22 Respiratory Effort / Characteristics Respiratory Depth Blood Pressure 140/81 140/81 Blood Pressure [Right Arm] Blood Pressure Mean 111 111 Blood Pressure Mean [Right Arm] Blood Pressure Position Pulse Oximetry 95 Oxygen Delivery Method Sepsis Recent Fever Within 48 Hours Sepsis New/Unexplained Change in Mental Status Sepsis Action Taken by Nursing 10/21/24 09:23 10/21/24 09:23 10/21/24 09:26 Temperature 36.4 C L Temperature Source Oral Pulse Rate 63 Pulse Rate [Right Finger] Pulse Rate from SpO2 Sensor Respiratory Rate 15 Respiratory Effort / Characteristics Non-Labored Spontaneous Respiratory Depth Normal Blood Pressure Blood Pressure [Right Arm] Blood Pressure Mean Blood Pressure Mean [Right Arm] Blood Pressure Position Pulse Oximetry 95 Oxygen Delivery Method Room Air Sepsis Recent Fever Within 48 Hours Sepsis New/Unexplained Change in Mental Status Sepsis Action Taken by Nursing 10/21/24 09:30 10/21/24 09:30 10/21/24 09:30 Temperature Temperature Source Pulse Rate Pulse Rate [Right Finger] Pulse Rate from SpO2 Sensor Respiratory Rate Respiratory Effort / Characteristics Respiratory Depth Blood Pressure 137/72 137/72 137/72 Blood Pressure [Right Arm] Blood Pressure Mean 95 95 95 Blood Pressure Mean [Right Arm] Blood Pressure Position Pulse Oximetry Oxygen Delivery Method Sepsis Recent Fever Within 48 Hours Sepsis New/Unexplained Change in Mental Status Sepsis Action Taken by Nursing 10/21/24 09:30 10/21/24 09:54 10/21/24 10:06 Temperature Temperature Source Pulse Rate 61 60 63 Pulse Rate [Right Finger] Pulse Rate from SpO2 Sensor 62 60 63 Respiratory Rate 21 23 23 Respiratory Effort / Characteristics Respiratory Depth Blood Pressure Blood Pressure [Right Arm] Blood Pressure Mean Blood Pressure Mean [Right Arm] Blood Pressure Position Pulse Oximetry 95 95 94 Oxygen Delivery Method Sepsis Recent Fever Within 48 Hours Sepsis New/Unexplained Change in Mental Status Sepsis Action Taken by Nursing 10/21/24 10:12 10/21/24 10:30 10/21/24 10:30 Temperature Temperature Source Pulse Rate 63 Pulse Rate [Right Finger] Pulse Rate from SpO2 Sensor 64 Respiratory Rate 22 Respiratory Effort / Characteristics Respiratory Depth Blood Pressure 135/72 135/72 Blood Pressure [Right Arm] Blood Pressure Mean 91 91 Blood Pressure Mean [Right Arm] Blood Pressure Position Pulse Oximetry 96 Oxygen Delivery Method Sepsis Recent Fever Within 48 Hours Sepsis New/Unexplained Change in Mental Status Sepsis Action Taken by Nursing 10/21/24 10:30 10/21/24 10:42 10/21/24 10:51 Temperature Temperature Source Pulse Rate 67 79 74 Pulse Rate [Right Finger] Pulse Rate from SpO2 Sensor 66 76 73 Respiratory Rate 19 18 23 Respiratory Effort / Characteristics Respiratory Depth Blood Pressure Blood Pressure [Right Arm] Blood Pressure Mean Blood Pressure Mean [Right Arm] Blood Pressure Position Pulse Oximetry 96 98 96 Oxygen Delivery Method Sepsis Recent Fever Within 48 Hours Sepsis New/Unexplained Change in Mental Status Sepsis Action Taken by Nursing 10/21/24 10:57 10/21/24 11:00 10/21/24 11:03 Temperature Temperature Source Pulse Rate 72 69 Pulse Rate [Right Finger] Pulse Rate from SpO2 Sensor 73 69 Respiratory Rate 21 22 Respiratory Effort / Characteristics Respiratory Depth Blood Pressure 130/70 Blood Pressure [Right Arm] Blood Pressure Mean 91 Blood Pressure Mean [Right Arm] Blood Pressure Position Pulse Oximetry 97 96 Oxygen Delivery Method Sepsis Recent Fever Within 48 Hours Sepsis New/Unexplained Change in Mental Status Sepsis Action Taken by Nursing 10/21/24 11:15 10/21/24 11:27 10/21/24 11:30 Temperature Temperature Source Pulse Rate 74 71 Pulse Rate [Right Finger] Pulse Rate from SpO2 Sensor 75 70 Respiratory Rate 21 21 Respiratory Effort / Characteristics Respiratory Depth Blood Pressure 127/67 Blood Pressure [Right Arm] Blood Pressure Mean 88 Blood Pressure Mean [Right Arm] Blood Pressure Position Pulse Oximetry 97 95 Oxygen Delivery Method Sepsis Recent Fever Within 48 Hours Sepsis New/Unexplained Change in Mental Status Sepsis Action Taken by Nursing 10/21/24 11:30 10/21/24 11:30 10/21/24 11:51 Temperature Temperature Source Pulse Rate 73 66 Pulse Rate [Right Finger] Pulse Rate from SpO2 Sensor 73 67 Respiratory Rate 21 18 Respiratory Effort / Characteristics Respiratory Depth Blood Pressure 127/67 Blood Pressure [Right Arm] Blood Pressure Mean 88 Blood Pressure Mean [Right Arm] Blood Pressure Position Pulse Oximetry 96 99 Oxygen Delivery Method Sepsis Recent Fever Within 48 Hours Sepsis New/Unexplained Change in Mental Status Sepsis Action Taken by Nursing 10/21/24 11:57 10/21/24 12:00 10/21/24 12:00 Temperature Temperature Source Pulse Rate 68 Pulse Rate [Right Finger] Pulse Rate from SpO2 Sensor 68 Respiratory Rate 21 Respiratory Effort / Characteristics Respiratory Depth Blood Pressure 119/66 119/66 Blood Pressure [Right Arm] Blood Pressure Mean 78 78 Blood Pressure Mean [Right Arm] Blood Pressure Position Pulse Oximetry 100 Oxygen Delivery Method Sepsis Recent Fever Within 48 Hours Sepsis New/Unexplained Change in Mental Status Sepsis Action Taken by Nursing 10/21/24 12:00 10/21/24 12:03 10/21/24 12:18 Temperature Temperature Source Pulse Rate 68 72 Pulse Rate [Right Finger] Pulse Rate from SpO2 Sensor 68 71 Respiratory Rate 19 19 Respiratory Effort / Characteristics Respiratory Depth Blood Pressure 119/66 Blood Pressure [Right Arm] Blood Pressure Mean 78 Blood Pressure Mean [Right Arm] Blood Pressure Position Pulse Oximetry 98 97 Oxygen Delivery Method Sepsis Recent Fever Within 48 Hours Sepsis New/Unexplained Change in Mental Status Sepsis Action Taken by Nursing 10/21/24 12:24 10/21/24 12:30 10/21/24 12:30 Temperature Temperature Source Pulse Rate 68 70 Pulse Rate [Right Finger] Pulse Rate from SpO2 Sensor 115 H Respiratory Rate 20 20 Respiratory Effort / Characteristics Respiratory Depth Blood Pressure 123/66 Blood Pressure [Right Arm] Blood Pressure Mean 96 Blood Pressure Mean [Right Arm] Blood Pressure Position Pulse Oximetry 93 Oxygen Delivery Method Sepsis Recent Fever Within 48 Hours Sepsis New/Unexplained Change in Mental Status Sepsis Action Taken by Nursing 10/21/24 12:45 10/21/24 12:48 10/21/24 13:00 Temperature Temperature Source Pulse Rate 74 72 Pulse Rate [Right Finger] Pulse Rate from SpO2 Sensor 75 72 Respiratory Rate 21 21 Respiratory Effort / Characteristics Respiratory Depth Blood Pressure 126/69 Blood Pressure [Right Arm] Blood Pressure Mean 90 Blood Pressure Mean [Right Arm] Blood Pressure Position Pulse Oximetry 95 97 Oxygen Delivery Method Sepsis Recent Fever Within 48 Hours Sepsis New/Unexplained Change in Mental Status Sepsis Action Taken by Nursing 10/21/24 13:27 10/21/24 13:30 10/21/24 13:30 Temperature Temperature Source Pulse Rate 80 Pulse Rate [Right Finger] Pulse Rate from SpO2 Sensor 81 Respiratory Rate 24 Respiratory Effort / Characteristics Respiratory Depth Blood Pressure 143/71 H 143/71 H Blood Pressure [Right Arm] Blood Pressure Mean 111 111 Blood Pressure Mean [Right Arm] Blood Pressure Position Pulse Oximetry 97 Oxygen Delivery Method Sepsis Recent Fever Within 48 Hours Sepsis New/Unexplained Change in Mental Status Sepsis Action Taken by Nursing 10/21/24 13:30 10/21/24 13:30 10/21/24 13:30 Temperature Temperature Source Pulse Rate 80 Pulse Rate [Right Finger] Pulse Rate from SpO2 Sensor 80 Respiratory Rate 22 Respiratory Effort / Characteristics Respiratory Depth Blood Pressure 143/71 H 143/71 H Blood Pressure [Right Arm] Blood Pressure Mean 111 111 Blood Pressure Mean [Right Arm] Blood Pressure Position Pulse Oximetry 98 Oxygen Delivery Method Sepsis Recent Fever Within 48 Hours Sepsis New/Unexplained Change in Mental Status Sepsis Action Taken by Nursing 10/21/24 13:54 10/21/24 14:00 10/21/24 14:09 Temperature Temperature Source Pulse Rate 76 72 Pulse Rate [Right Finger] Pulse Rate from SpO2 Sensor Respiratory Rate 18 22 Respiratory Effort / Characteristics Respiratory Depth Blood Pressure 146/78 H Blood Pressure [Right Arm] Blood Pressure Mean 116 Blood Pressure Mean [Right Arm] Blood Pressure Position Pulse Oximetry Oxygen Delivery Method Sepsis Recent Fever Within 48 Hours Sepsis New/Unexplained Change in Mental Status Sepsis Action Taken by Nursing 10/21/24 14:18 10/21/24 14:21 10/21/24 14:33 Temperature Temperature Source Pulse Rate 69 72 78 Pulse Rate [Right Finger] Pulse Rate from SpO2 Sensor Respiratory Rate 15 20 Respiratory Effort / Characteristics Respiratory Depth Blood Pressure Blood Pressure [Right Arm] Blood Pressure Mean Blood Pressure Mean [Right Arm] Blood Pressure Position Pulse Oximetry Oxygen Delivery Method Sepsis Recent Fever Within 48 Hours Sepsis New/Unexplained Change in Mental Status Sepsis Action Taken by Nursing 10/21/24 14:59 Temperature Temperature Source Pulse Rate Pulse Rate [Right Finger] 71 Pulse Rate from SpO2 Sensor Respiratory Rate 19 Respiratory Effort / Characteristics Respiratory Depth Blood Pressure Blood Pressure [Right Arm] 146/78 H Blood Pressure Mean Blood Pressure Mean [Right Arm] 100 Blood Pressure Position Pulse Oximetry 96 Oxygen Delivery Method Room Air Sepsis Recent Fever Within 48 Hours Sepsis New/Unexplained Change in Mental Status Sepsis Action Taken by Nursing Laboratory Data Attestation: I reviewed the patient's lab results. 10/21/24 09:20 10/21/24 09:20 Lab Results 10/21/24 10/21/24 10/21/24 Range/Units 09:20 10:28 11:33 WBC 5.71 (4.8-10.8) K/ul RBC 4.85 (4.70-6.10) M/uL Hgb 14.3 (14.0-18.0) g/dl Hct 41.8 L (42.0-52.0) % MCV 86.2 (80.0-100.0) fL MCH 29.5 (25.0-34.0) pg MCHC 34.2 (32.0-36.0) g/dL RDW Std Deviation 42.9 (36.4-46.3) fL RDW Coeff of Ana Rosa 13.8 (11.5-14.5) % Plt Count 177 (130-400) K/uL MPV 11.3 (9.4-12.4) fL Immature Gran % (Auto) 0.5 % Neut % (Auto) 58.2 % Lymph % (Auto) 27.1 % Pepin % (Auto) 11.0 % Eos % (Auto) 2.1 % Baso % (Auto) 1.1 % Neut # (Auto) 3.32 (1.40-6.50) K/uL Lymph # (Auto) 1.55 (1.20-3.40) K/uL Pepin # (Auto) 0.63 H (0.11-0.59) K/uL Eos # (Auto) 0.12 (0.00-0.50) K/uL Baso # (Auto) 0.06 (0.00-0.20) K/uL Immature Gran # (Auto) 0.03 (0.01-0.20) K/uL PT 10.5 (9.0-12.0) Seconds INR 1.0 (0.9-1.1) Sodium 139 (136-145) mmol/L Potassium 3.8 (3.5-5.1) mmol/L Chloride 106 (98-107) mmol/L Carbon Dioxide 24 (21-32) mmol/L Anion Gap 9 (3-11) BUN 12 (6-23) mg/dl Creatinine 1.11 (0.6-1.4) mg/dl Est Cr Clr Drug Dosing Not Reportable eGFR 70.12 BUN/Creatinine Ratio 10.8 (10-20) Glucose 86 (70-99(Fasting)) mg/dl Lactate 0.9 (0.4-2.0) mmol/L Calcium 9.3 (8.6-10.3) mg/dl Magnesium 1.9 (1.7-2.4) mg/dl Total Bilirubin 0.6 (0.2-1.0) mg/dl Direct Bilirubin 0.0 (0-0.2) mg/dl AST 12 L (13-39) U/L ALT < 3 L (7-52) U/L Alkaline Phosphatase 69 (34-104) U/L Troponin I High Sens 3.6 (0-20) pg/ml Total Protein 6.8 (6.0-8.3) gm/dl Albumin 4.2 (3.4-5.0) gm/dl Lipase 21 (11-82) U/L Procalcitonin 0.03 (0-0.5) ng/ml Urine Color Yellow Urine Appearance Clear (Clear) Urine pH 6.5 (4.5-7.5) Ur Specific [place] 1.013 (1.000-1.030) Urine Protein Negative (Negative) Urine Glucose (UA) Negative (Negative) Urine Ketones Negative (Negative) Urine Blood Negative (Negative) Urine Nitrite Negative (Negative) Urine Bilirubin Negative (Negative) Urine Urobilinogen Negative (Negative) Ur Leukocyte Esterase 1+ H (Negative) Urine WBC (Auto) 0-5 (0-5) /hpf Urine RBC (Auto) 0-2 (0-2) /hpf U Hyaline Cast (Auto) 3-5 H (0-2) /lpf U Epithel Cells (Auto) 0-2 (0-2) /hpf Urine Bacteria (Auto) None Seen (None Seen) Urine Comment Nasal Screen MRSA (PCR) Negative (Negative) Adenovirus (PCR) Not Detected (NotDetected) B. pertussis DNA (PCR) Not Detected (NotDetected) B.parapertussis DNA PCR Not Detected (NotDetected) Lyme Disease Screen Negative (Negative) C. pneumoniae DNA (PCR) Not Detected (NotDetected) Coronavirus OC43 (PCR) Not Detected (NotDetected) Coronavirus HKU1 (PCR) Not Detected (NotDetected) Coronavirus 229E (PCR) Not Detected (NotDetected) SARS-CoV-2 (PCR) Not Detected (NotDetected) Coronavirus NL63 (PCR) Not Detected (NotDetected) Human Metapneumovir PCR Not Detected (NotDetected) Influenza Type A (PCR) Not Detected (NotDetected) Influenza Type B (PCR) Not Detected (NotDetected) M. pneumoniae (PCR) Not Detected (NotDetected) Parainfluenza 1 (PCR) Not Detected (NotDetected) Parainfluenza 2 (PCR) Not Detected (NotDetected) Parainfluenza 3 (PCR) Not Detected (NotDetected) Parainfluenza 4 (PCR) Not Detected (NotDetected) RSV (PCR) Not Detected (NotDetected) Entero/Rhino (PCR) Not Detected (NotDetected) Administered Medications Discontinued Medications Carbidopa/Levodopa (Carbidopa/Levodopa 25/100mg Tab) 2.5 tab PO NOW STA Stop: 10/21/24 13:20 Last Admin: 10/21/24 13:33 Dose: 2.5 tab Documented By: BEN Piperacillin Sod/Tazobactam Sod (Zosyn) 4.5 gm in 100 mls @ 200 mls/hr IV NOW ONE; Protocol Stop: 10/21/24 10:02 Last Infusion: 10/21/24 10:56 Dose: Infused Documented By: Admin: 10/21/24 10:13 Dose: 200 mls/hr Documented By: BEN Sodium Chloride (Nss) 1,000 mls @ 999 mls/hr IV .Q1H1M DAVID Stop: 10/21/24 11:45 Last Infusion: 10/21/24 11:47 Dose: Infused Documented By: Admin: 10/21/24 10:57 Dose: 999 mls/hr Documented By: Infusion: 10/21/24 10:57 Dose: Infused Documented By: Admin: 10/21/24 10:13 Dose: 999 mls/hr Documented By: BEN Ioversol (Optiray 320 100ml) 91 ml IV ONCE ONE Stop: 10/21/24 13:22 Last Admin: 10/21/24 13:21 Dose: 91 ml Documented By: LUCIUS Imaging Data Radiologist's Impression: Chest X-Ray 10/21/24 08:59 XR chest 1V portable CLINICAL HISTORY: Sepsis. COMPARISON STUDY: Chest CT February 05, 2021. Chest radiograph January 24, 2024. FINDINGS: Lung volumes are normal. Lungs are clear. There is no pneumothorax or pleural effusion. Cardiac size is normal. Mediastinal contours are normal. There is no evidence for pulmonary edema. IMPRESSION: No acute cardiopulmonary findings. ACT 112: Negative or not required by law. Electronically signed by: Jose Elias Patiño M.D. 10/21/2024 9:53 AM Abdomen/Pelvis CT 10/21/24 12:19 CT SCAN OF THE ABDOMEN AND PELVIS WITH IV CONTRAST CLINICAL HISTORY: Fever. Weakness. Confusion. COMPARISON STUDY: CT of the abdomen and pelvis April 17, 2023. KUB July 11, 2023. TECHNIQUE: Following the IV administration of 91 cc of Optiray 320, CT scan of the abdomen and pelvis is performed from the lung bases to the proximal femora. Images are reviewed in the axial, sagittal, and coronal planes. IV contrast was administered without complication. A dose lowering technique was utilized adhering to the principles of ALARA. CT DOSE: 841.11 mGy.cm FINDINGS: Visualized lung bases are unremarkable. No pneumatosis, free air or portal venous gas is. Mild splenomegaly is unchanged. Liver, adrenal glands and pancreas are unremarkable. Is no biliary or pancreatic ductal dilatation. A Rutherford balloon within the bladder is present. The prostate measures 4.6 cm in transverse dimension. Bladder wall thickening is likely chronic. There is minimal dependent hyperdense material within the bladder. Mild bilateral collecting system dilatation is noted with mild urothelial thickening of the renal pelvis. There are no urinary calculi. Renal enhancement is homogeneous. No evidence for a bowel obstruction. There is a moderate amount stool within the colon and rectum. No lymphadenopathy is present. IMPRESSION: 1. No bowel obstruction. No bowel wall thickening. Moderate amount of stool within the colon and rectum. 2. Mild bilateral collecting system dilatation, significantly decreased when compared to CT of April 17, 2023. Urothelial thickening of the collecting systems and bladder wall thickening which could be correlated with urinalysis. 3. Rutherford within the bladder which is largely collapsed. Minimal dependent hyperdense material within the bladder. This could represent tiny calculi or trace clot. ACT 112: Negative or not required by law. Electronically signed by: Jose Elias Patiño M.D. 10/21/2024 2:06 PM Discharge Plan Visit Data Chief Complaint: Illness Stated Complaint: FEVER, SWEATS, PARKINSONS ED Provider: Thang Brewer Discharge Problem: Parkinsonism, Indwelling Rutherford catheter present, Complicated urinary tract infection Patient Disposition: Admitted As Inpatient Condition: Fair Forms Stand Alone Forms: My [facility] trivago Prescriptions Prescriptions: No Action carbidopa-levodopa [Sinemet] 25-100 mg tablet 2.5 tab PO QID losartan 25 mg tablet 25 mg PO QAM Qty: 90 3RF oxybutynin chloride 5 mg tablet 5 mg PO BID PRN (Reason: bladder spasms) Qty: 20 1RF alprazolam [Xanax] 0.25 mg tablet 0.125 - 0.25 mg PO HS PRN (Reason: sleep) Qty: 30 0RF Rx Instructions: Supervising physician Teresa Martin MD [facility] [id number] omeprazole 20 mg capsule,delayed release(DR/EC) 20 mg PO DAILYBB Qty: 90 3RF rosuvastatin 20 mg tablet 20 mg PO QAM Qty: 90 3RF bupropion HCl 300 mg tablet extended release 24 hr 450 mg PO QAM Qty: 90 2RF carbidopa-levodopa 36.25-145 mg Capsule, Extended Release 1 cap PO BID loratadine [Claritin] 10 mg Tablet 10 mg PO QAM cholecalciferol (vitamin D3) [Vitamin D3] 125 mcg (5,000 unit) Tablet 125 mcg PO QAM ferrous sulfate 325 mg (65 mg iron) tablet 325 mg PO Q OTHER DAY ondansetron 4 mg tablet,disintegrating 4 mg PO Q6H PRN (Reason: nausea and vomiting) Qty: 10 0RF Referrals Referrals: Teresa Das MD [Primary Care Provider] -
[2024-10-21 09:39] LABS: Basophils # (auto) 0.06 K/uL (0.00-0.20); Basophils % (auto) 1.1 %; Eosinophils # (auto) 0.12 K/uL (0.00-0.50); Eosinophils % (auto) 2.1 %; Hematocrit (blood only) 41.8 % (42.0-52.0); Hemoglobin 14.3 g/dl (14.0-18.0); Immature Granulocytes # (auto) 0.03 K/uL (0.01-0.20); Immature Granulocytes % (auto) 0.5 %; Lymphocytes # (auto) 1.55 K/uL (1.20-3.40); Lymphocytes % (auto) 27.1 %; Mean Corpuscular Hemoglobin 29.5 pg (25.0-34.0); Mean Corpuscular Hgb Conc 34.2 g/dL (32.0-36.0); Mean Corpuscular Volume 86.2 fL (80.0-100.0); Mean Platelet Volume 11.3 fL (9.4-12.4); Monocytes # (auto) 0.63 K/uL (0.11-0.59); Neutrophils # (auto) 3.32 K/uL (1.40-6.50); Neutrophils % (auto) 58.2 %; Platelet Count 177 K/uL (130-400); RDW Coefficient of Variation 13.8 % (11.5-14.5); RDW Standard Deviation 42.9 fL (36.4-46.3); Red Blood Count 4.85 M/uL (4.70-6.10); White Blood Count 5.71 K/ul (4.8-10.8)
--- NOTE | 2024-10-21 09:55 | XRay Report ---
XR chest 1V portable CLINICAL HISTORY: Sepsis. COMPARISON STUDY: Chest CT February 05, 2021. Chest radiograph January 24, 2024. FINDINGS: Lung volumes are normal. Lungs are clear. There is no pneumothorax or pleural effusion. Car diac size is normal. Mediastinal contours are normal. There is no evidence for pulmonary edema. IMPRESSION: No acute cardiopulmonary findings. ACT 112: Negative or not required by law. Electronically signed by: Jose Elias Patiño M.D. 10/21/2024 9:53 AM
[2024-10-21 10:03] LABS: Anion Gap 9 (3-11); BUN Creatinine Ratio 10.8 (10-20); Blood Urea Nitrogen 12 mg/dl (6-23); Calcium 9.3 mg/dl (8.6-10.3); Carbon Dioxide 24 mmol/L (21-32); Chloride 106 mmol/L (98-107); Glucose 86 mg/dl (70-99(Fasting)); Potassium 3.8 mmol/L (3.5-5.1); Prothrombin Time 10.5 Seconds (9.0-12.0); Sodium 139 mmol/L (136-145)
[2024-10-21 10:09] LABS: Troponin I High Sensitivity 3.6 pg/ml (0-20)
[2024-10-21] MEDS: PIPERACILLIN/TAZOBACTAM 4.5 GM/100 ML BAG IV ONE (10:13)
[2024-10-21] MEDS: SODIUM CHLORIDE 0.9% 1,000 ML IV SCH (10:13)
[2024-10-21 10:41] LABS: Alanine Aminotransferase < 3 U/L (7-52); Albumin Level 4.2 gm/dl (3.4-5.0); Alkaline Phosphatase 69 U/L (34-104); Aspartate Aminotransferase 12 U/L (13-39); Bilirubin,Total 0.6 mg/dl (0.2-1.0); Lipase 21 U/L (11-82); Magnesium 1.9 mg/dl (1.7-2.4); Total Protein 6.8 gm/dl (6.0-8.3)
[2024-10-21 11:33] LABS: Adenovirus PCR Not Detected (NotDetected); Bordetella parapertussis PCR Not Detected (NotDetected); Bordetella pertussis PCR Not Detected (NotDetected); Chlamydia pneumoniae PCR Not Detected (NotDetected); Coronavirus 229E PCR Not Detected (NotDetected); Coronavirus CoV-2 (COVID19)PCR Not Detected (NotDetected); Coronavirus HKU1 PCR Not Detected (NotDetected); Coronavirus NL63 PCR Not Detected (NotDetected); Coronavirus OC43PCR Not Detected (NotDetected); Human Metapneumovirus PCR Not Detected (NotDetected); Influenza A PCR Not Detected (NotDetected); Influenza B PCR Not Detected (NotDetected); Mycoplasma pneumoniae PCR Not Detected (NotDetected); Parainfluenza Virus 1 PCR Not Detected (NotDetected); Parainfluenza Virus 2 PCR Not Detected (NotDetected); Parainfluenza Virus 3 PCR Not Detected (NotDetected); Parainfluenza Virus 4 PCR Not Detected (NotDetected); Respiratory Syncytial VirusPCR Not Detected (NotDetected); Rhinovirus/Enterovirus PCR Not Detected (NotDetected)
[2024-10-21 12:01] LABS: Appearance Urine Clear (Clear); Bacteria Urine Automated None Seen (None Seen); Bilirubin Urine Negative (Negative); Blood Urine Negative (Negative); Color Urine Yellow; Epithelial Cell Urine Auto 0-2 /hpf (0-2); Glucose Urine UA Negative (Negative); Ketones Urine Negative (Negative); Leukocyte Esterase Urine 1+ (Negative); Nitrite Urine Negative (Negative); Protein Urine Negative (Negative); RBC Urine Automated 0-2 /hpf (0-2); Specific Gravity Urine 1.013 (1.000-1.030); Urobilinogen Urine Negative (Negative); WBC Urine Automated 0-5 /hpf (0-5); pH Urine 6.5 (4.5-7.5)
[2024-10-21] MEDS: OPTIRAY 320 100ml IV ONE (13:21)
[2024-10-21] MEDS: CARBIDOPA/LEVODOPA 25/100MG TAB PO STA (13:33)
--- NOTE | 2024-10-21 14:07 | CT Scan Report ---
CT SCAN OF THE ABDOMEN AND PELVIS WITH IV CONTRAST CLINICAL HISTORY: Fever. Weakness. Confusion. COMPARISON STUDY: CT of the abdomen and pelvis April 17, 2023. KUB July 11, 2023. TECHNIQUE: Following the IV administration of 91 cc of Optiray 320, CT scan of the abdomen and pelvi s is performed from the lung bases to the proximal femora. Images are reviewed in the axial, sagittal , and coronal planes. IV contrast was administered without complication. A dose lowering technique wa s utilized adhering to the principles of ALARA. CT DOSE: 841.11 mGy.cm FINDINGS: Visualized lung bases are unremarkable. No pneumatosis, free air or portal venous gas is. M ild splenomegaly is unchanged. Liver, adrenal glands and pancreas are unremarkable. Is no biliary or pancreatic ductal dilatation. A Rutherford balloon within the bladder is present. The prostate measures 4. 6 cm in transverse dimension. Bladder wall thickening is likely chronic. There is minimal dependent h yperdense material within the bladder. Mild bilateral collecting system dilatation is noted with mild urothelial thickening of the renal pelvis. There are no urinary calculi. Renal enhancement is homoge neous. No evidence for a bowel obstruction. There is a moderate amount stool within the colon and rec fady. No lymphadenopathy is present. IMPRESSION: 1. No bowel obstruction. No bowel wall thickening. Moderate amount of stool within the colon and rect um. 2. Mild bilateral collecting system dilatation, significantly decreased when compared to CT of [facility] 2022. Urothelial thickening of the collecting systems and bladder wall thickening which could be correlated with urinalysis. 3. Rutherford within the bladder which is largely collapsed. Minimal dependent hyperdense material within the bladder. This could represent tiny calculi or trace clot. ACT 112: Negative or not required by law. Electronically signed by: Jose Elias Patiño M.D. 10/21/2024 2:06 PM
--- NOTE | 2024-10-21 14:22 | History & Physical Report ---
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 # Complicated UTI | chronic indwelling Child No leukocytosis; afebrile on arrival, but reported fever and chills at home Procalcitonin WNL A/P CT with mild bilateral collecting system dilation and bladder wall thickening Negative CVA tenderness on exam; lower suspicion for pyelonephritis at this time Review of prior urine cultures: UCx on 07/11/2023 grew E. coli resistant to ceftriaxone/amoxicillin; susceptible to cefepime UCx on 06/17/2024 grew Staphylococcus epidermidis resistant to oxacillin; susceptible to daptomycin Most recent UCx on 10/05/2024 grew Staphylococcus epidermidis and Enterococcus faecalis Started on Macrobid on 10/08 Despite starting Macrobid, patient continues to have fever; failure of outpatient antibiotics Blood / UCx on arrival Cefepime 2000 mg IV q8h Daptomycin 475 mg IV q24h; hold statin Daily Child catheter care Continue oxybutynin PRN #Parkinson's disease Continue Sinemet #GERD Continue PPI #HLD Hold rosuvastatin #HTN Continue losartan #Anxiety/depression Continue bupropion Continue alprazolam PRN Disposition: Admit to [facility] VTE PPx: Lovenox 40 mg SQ q24h History of Present Illness Chief Complaint: Illness Primary Care Provider: Teresa Das MD Mr. Cheema is a 74-year-old male with PMH of Parkinson's disease, anxiety, depression, BPH, neurogenic bladder, indwelling Child catheter, HTN, dyslipidemia, and B12 deficiency. 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 Patient reports he had a fever yesterday morning and took 2 Tylenol, which improved his symptoms. He then woke up again today with fever/sweats; took 2 Tylenol 500 mg tablets at 7:30 AM. Patient is unsure how high his temperature was, as he did not check it with a thermometer. Patient reports he was recently at the emergency department on 10/05 for urinary retention. His urine culture that resulted on 10/08 grew bacteria, and he was placed on a course of Macrobid 100 mg p.o. twice daily x 10 days. Patient reports he completed the full course, but then began having fever shortly thereafter. He does have a history of recurrent UTIs. Chronic Child catheter, was replaced today in the emergency department; normally it is replaced monthly; follows with Dr. Leblanc. Patient did not take his regular morning meds today, except for his Sinemet. Only recent change in medication is that he was increased from Sinemet 2 tablets 4 times daily, to Sinemet 2.5 tablets 4 times daily. Patient manages his own medicine at home. He ambulates with a walker at baseline. Besides the fever, his only other symptom has been decreased urinary frequency. No burning sensation in the groin, dysuria, change in urine color/smell, or low back pain. Patient ports he has been eating and drinking okay at home. He denies smoking, tobacco use, recent alcohol use. Vital stable at time of admission. ED course: Zosyn 4.5 g IV NSS 1000 mL IV Sinemet 25/100 mg p.o. ROS: Patient endorses fever, chills, sweats, instability when walking, nasal congestion, and dry cough. Patient denies body aches, joint pain, dizziness, lightheadedness, BARBER, chest pain, SOB, chest palpitations, abdominal pain, abdominal pain, N/V/D, blood in the urine/stool, burning with urination, lower back pain, saddle anesthesia, or numbness/tingling in the arms or legs. Allergies Allergy/AdvReac Type Severity Reaction Status Date / Time No Known Allergies Allergy Verified 07/15/24 13:00 Home Medications Medication Instructions Recorded Confirmed Type cholecalciferol (vitamin D3) 125 125 mcg PO QAM 02/05/21 10/21/24 History mcg (5,000 unit) tablet (Vitamin D3) loratadine 10 mg tablet (Claritin) 10 mg PO QAM 02/05/21 10/21/24 History carbidopa 25 mg-levodopa 100 mg 2.5 tab PO QID 12/18/22 10/21/24 History tablet (Sinemet) ferrous sulfate 325 mg (65 mg 325 mg PO Q OTHER DAY 12/18/22 10/21/24 History iron) tablet carbidopa ER 36.25 mg-levodopa 145 1 cap PO BID 04/17/23 10/21/24 History mg capsule,extended release ondansetron 4 mg disintegrating 4 mg PO Q6H PRN nausea and 11/04/23 10/21/24 Rx tablet vomiting #10 tabs rosuvastatin 20 mg tablet 20 mg PO QAM #90 tabs 12/04/23 10/21/24 Rx losartan 25 mg tablet 25 mg PO QAM #90 tabs 01/22/24 10/21/24 Rx oxybutynin chloride 5 mg tablet 5 mg PO BID PRN bladder spasms #20 05/20/24 10/21/24 Rx tabs alprazolam 0.25 mg tablet (Xanax) 0.125 - 0.25 mg (0.5 - 1 x 0.25 07/07/24 10/21/24 Rx mg) PO HS PRN sleep #30 tabs bupropion HCl 300 mg 24 hr tablet, 450 mg (1.5 x 300 mg) PO QAM #90 07/14/24 10/21/24 Rx extended release tabs omeprazole 20 mg capsule,delayed 20 mg PO DAILYBB #90 caps 07/15/24 10/21/24 Rx release Past Med/Surg History Problem List (Updated 10/22/24 @ 16:07 by Ramses Holt MD) Catheter-associated urinary tract infection Complicated urinary tract infection (Acute) HLD (hyperlipidemia) Complicated UTI (urinary tract infection) Mixed insomnia COVID-19 (Acute) Neurogenic bladder Indwelling Child catheter present (Acute) Anxiety Urinary tract obstruction Hydronephrosis B12 deficiency Erectile dysfunction Dyslipidemia BPH with obstruction/lower urinary tract symptoms HTN (hypertension) GERD (gastroesophageal reflux disease) 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 Iron deficiency anemia Vitamin D deficiency Allergic rhinitis Recurrent UTI 05/12/23 currently on doxy for this Major depressive disorder with single episode History of urethral stricture Parkinsonism (Acute) Follows with neurology= "patient has sub optimally controlled rigid-akinetic type Parkinson's with some response to higher doses of carbidopa levodopa" Progressive supranuclear palsy Medical History Constipation Nausea and vomiting after administration of anesthetic agent History of COVID-19 early 2022- no hospitalized, resolved Surgical History Hx of tooth extraction Urinary anastomotic stricture 2001 and 2022 Family History Mother Depression Diabetes Other Hypertension Denies family history of Ovarian cancer Prostate cancer Myocardial infarction Breast cancer Colorectal cancer Social History Smoking Status: Former smoker Tobacco Type: Cigarettes Age Started Using Tobacco: 19; Age Quit Using Tobacco: 46; packs per day: 1; Smoking End Date: 1994; Second Hand Exposure: No; Do You Dip or Chew Tobacco: No; Hx Alcohol Use: No Hx Substance Use: No Preferred Language: Kazakh Communication Ability: Effective Visual Impairment: No Limitations Homemaker Companion Required: No Beliefs That Will Affect Care: None marital status: Current Living Situation: Spouse and Other Current Living Situation Comment: son current occupational status: retired How many Children do You have: 3 Feels Safe at Home: Yes Safety Concerns: Feels Safe At This Time Childhood Exposure to Second-Hand Smoke: No Diet: regular caffeine: Yes Dental Care, Regularly: No Physical Activity Frequency: Does not Exercise Seatbelt Use: always Sunscreen Use: Yes Assistive Devices: Cane, Walker, Wheelchair and Other Review of Systems Review of Systems: See HPI above Physical Exam Physical Exam: General: no acute distress; pleasant affect; (Christiane) at bedside; non-toxic appearing; well-nourished; cooperative; SpO2 98% on RA HEENT: normocephalic, atraumatic; no scleral icterus; PERRLA; vision and hearing grossly intact Neck: supple; trachea midline Skin: warm, dry without signs of tenting; no cyanosis; no rashes, bruising, lesions, or erythema noted CV: chest wall NTP; RRR; S1/S2 normal; no murmurs/rubs/gallops; pulses intact and symmetric at radial, DP, and PT Lungs: no acute respiratory distress; symmetrical chest wall expansion; clear breath sounds across all lung turner w/o adventitious sounds; no wheezing ABD: Soft, NTP; BS present; no rebound/guarding; no distention : Negative suprapubic tenderness; negative CVA tenderness bilaterally; Child catheter in place without signs of erythema or drainage around the insertion site; Child bag draining clear/light yellow urine MSK: no tics or fasciculations; no edema noted in the LEs b/l, nonerythematous Neuro: A&Ox3; normal mood and affect; fluent speech; no focal deficits; patient reports sensation is intact and symmetric in the lower extremity bilaterally Results & Data Results & Data Vital Signs (Past 12 Hours) Vital Signs Temp Pulse Resp BP Pulse Ox O2 Del Method 10/21/24 12:30 70 20 93 10/21/24 12:30 123/66 10/21/24 12:24 68 20 10/21/24 12:18 72 19 97 10/21/24 12:03 68 19 98 10/21/24 12:00 119/66 10/21/24 12:00 119/66 10/21/24 12:00 119/66 10/21/24 11:57 68 21 100 10/21/24 11:51 66 18 99 10/21/24 11:30 73 21 96 10/21/24 11:30 127/67 10/21/24 11:30 127/67 10/21/24 11:27 71 21 95 10/21/24 11:15 74 21 97 10/21/24 11:03 69 22 96 10/21/24 11:00 130/70 10/21/24 10:57 72 21 97 10/21/24 10:51 74 23 96 10/21/24 10:42 79 18 98 10/21/24 10:30 67 19 96 10/21/24 10:30 135/72 10/21/24 10:30 135/72 10/21/24 10:12 63 22 96 10/21/24 10:06 63 23 94 10/21/24 09:54 60 23 95 10/21/24 09:30 61 21 95 10/21/24 09:30 137/72 10/21/24 09:30 137/72 10/21/24 09:30 137/72 10/21/24 09:26 36.4 C L 15 10/21/24 09:23 63 10/21/24 09:23 95 Room Air 10/21/24 09:21 62 22 95 10/21/24 09:20 140/81 10/21/24 09:20 140/81 10/21/24 09:20 140/81 10/21/24 09:18 64 21 10/21/24 08:53 36.4 C L 66 18 138/74 97 Room Air Laboratory Results Abnormal lab results 10/21/24 10/21/24 Range/Units 09:20 11:33 Hct 41.8 L (42.0-52.0) % Millard # (Auto) 0.63 H (0.11-0.59) K/uL AST 12 L (13-39) U/L ALT < 3 L (7-52) U/L Ur Leukocyte Esterase 1+ H (Negative) U Hyaline Cast (Auto) 3-5 H (0-2) /lpf Diagnostic Findings Chest X-Ray 10/21/24 08:59 XR chest 1V portable CLINICAL HISTORY: Sepsis. COMPARISON STUDY: Chest CT February 05, 2021. Chest radiograph January 24, 2024. FINDINGS: Lung volumes are normal. Lungs are clear. There is no pneumothorax or pleural effusion. Cardiac size is normal. Mediastinal contours are normal. There is no evidence for pulmonary edema. IMPRESSION: No acute cardiopulmonary findings. ACT 112: Negative or not required by law. Electronically signed by: Jose Elias Patiño M.D. 10/21/2024 9:53 AM Abdomen/Pelvis CT 10/21/24 12:19 CT SCAN OF THE ABDOMEN AND PELVIS WITH IV CONTRAST CLINICAL HISTORY: Fever. Weakness. Confusion. COMPARISON STUDY: CT of the abdomen and pelvis April 17, 2023. KUB July 11, 2023. TECHNIQUE: Following the IV administration of 91 cc of Optiray 320, CT scan of the abdomen and pelvis is performed from the lung bases to the proximal femora. Images are reviewed in the axial, sagittal, and coronal planes. IV contrast was administered without complication. A dose lowering technique was utilized adhering to the principles of ALARA. CT DOSE: 841.11 mGy.cm FINDINGS: Visualized lung bases are unremarkable. No pneumatosis, free air or portal venous gas is. Mild splenomegaly is unchanged. Liver, adrenal glands and pancreas are unremarkable. Is no biliary or pancreatic ductal dilatation. A Child balloon within the bladder is present. The prostate measures 4.6 cm in transverse dimension. Bladder wall thickening is likely chronic. There is mi nimal dependent hyperdense material within the bladder. Mild bilateral collecting system dilatation is noted with mild urothelial thickening of the renal pelvis. There are no urinary calculi. Renal enhancement is homogeneous. No evidence for a bowel obstruction. There is a moderate amount stool within the colon and rectum. No lymphadenopathy is present. IMPRESSION: 1. No bowel obstruction. No bowel wall thickening. Moderate amount of stool within the colon and rectum. 2. Mild bilateral collecting system dilatation, significantly decreased when compared to CT of April 17, 2023. Urothelial thickening of the collecting systems and bladder wall thickening which could be correlated with urinalysis. 3. Child within the bladder which is largely collapsed. Minimal dependent hyperdense material within the bladder. This could represent tiny calculi or trace clot. ACT 112: Negative or not required by law. Electronically signed by: Jose Elias Patiño M.D. 10/21/2024 2:06 PM ECG Additional Comments: ECG revealed NSR at 62 bpm; QTc 420 Code Status & VTE Plan Code Status Full code VTE Prophylaxis Plan VTE Prophylaxis will be ordered: Yes Supervising Physician Co-Signing Physician Notes Attending Attestation & Admit Note: Pt seen/examined, chart reviewed, admit care plan d/w TIM Ortiz. I agree w/ the barr components of his admission documentation. 74yo male with h/o Parkinson's disease, anxiety, depression, BPH, neurogenic bladder, chronic indwelling Child catheter, HTN, dyslipidemia. Presented with 2 days of subjective fever & sweats. This is despite a 10-day course of macrobid earlier this month for staph epi/enterococcal UTI. He denies most other infectious symptoms despite the sweats/subjective fevers. He had dental work about 1 month ago (Filling) but denies any dental pain. No tick bites; rarely goes outside. No travel or sick contacts. PMH/PSH/allergies/meds/sochx - reviewed VSS, afebrile gen - NAD, lying comfortably in bed, nontoxic, masked facies c/w Parkinson's mouth - MMM, 1 right-sided molar that is cracked but no gingival inflammation noted neck - no JVD heart - RRR, s1 s2, no murmur lungs - CTA b/l abd - soft NT ND BS+; no flank tenderness b/l; no HSM ext - no edema, pulses b/l feet 2+ - child in place, urine very clear labs reviewed; WBC wnl; creatinine wnl Lyme screen negative Resp BioFire negative imaging reviewed including CT a/p -notably -- "Mild bilateral collecting system dilatation, significantly decreased when compared to CT of April 17, 2023. Urothelial thickening of the collecting systems and bladder wall thickening which could be correlated with urinalysis."[ A/P: 1. subjective fevers, sweats - recurrent UTI? viral process? tick-borne infection? occult bacteremia? other? u/a - which was obtained AFTER child was exchanged - is not terribly suspicious for UTI although CT a/p shows abnormalities of ureters the amount of dilatation has decreased in comparison to prior imaging will place on broad-spectrum IV antibiotics while awaiting urine/blood cx's if these remain negative, and he continues with sweats/fevers/etc - then pursue additional work-up (viral studies, tick-borne studies such as anaplasmosis, etc) of note - I don't see another source of infection on physical exam today 2. parkinson's - continue home med regimen Ramses Holt MD PG Care Time/CCT Total # of Minutes Spent Total Time Spent with Patient: Total time spent is greater than 50% in coordination of care (as documented) at patient's floor/unit and/or counseling patient: Coding [place] [address] INT INP/OBS CARE 2/55MIN Patient Type Established Medical Decision Making Moderate Complexity Diagnoses Complicated UTI (urinary tract infection) N39.0 Indwelling Child catheter present Z97.8 HLD (hyperlipidemia) E78.5 Catheter-associated urinary tract infection T83.511A; N39.0 Parkinsonism G20
[2024-10-21] MEDS: DAPTOmycin 500 MG in SYRINGE 0 ML IV ONE (16:12)
[2024-10-21] MEDS ORDERED: ACETAMINOPHEN 325 MG TAB PO PRN (16:44)
[2024-10-21] MEDS ORDERED: ALPRAZolam 0.25 MG TABLET PO PRN (16:44)
[2024-10-21] MEDS ORDERED: ONDANSETRON INJ 2 MG/ML 2 ML VIAL IV PRN (16:44)
[2024-10-21] MEDS ORDERED: oxyBUTYnin chloride 5 MG TAB PO PRN (16:44)
[2024-10-21] MEDS: CARBIDOPA/LEVODOPA 25/100MG TAB PO SCH (17:25)
[2024-10-21] MEDS: FERROUS SULFATE 325 MG TAB PO SCH (17:26)
[2024-10-21] MEDS: CEFEPIME 2000MG 2,000 MG/20 ML SYR IV SCH (17:55)
[2024-10-21] MEDS: ENOXAPARIN INJ 40 MG/0.4 ML SYR SQ SCH (20:29)
[2024-10-22] MEDS: MELATONIN 3 MG TAB PO PRN (02:20)
--- NOTE | 2024-10-22 06:09 | Electrocardiogram Report ---
Test Reason : Blood Pressure : */* mmHG Vent. Rate : 62 BPM Atrial Rate : 62 BPM P-R Int : 178 ms QRS Dur : 82 ms QT Int : 414 ms P-R-T Axes : 62 -12 46 degrees QTcB Int : 420 ms Normal sinus rhythm Low voltage QRS Cannot rule out Anterior infarct , age undetermined Abnormal ECG When compared with ECG of 04-Nov-2023 19:45, No significant change was found Confirmed by Haroon Forrest ([id number]) on 10/22/2024 6:08:58 AM Referred By: REFERRED SELF Confirmed By: Haroon Forrest
[2024-10-22] MEDS: PANTOprazole 40 MG TAB PO SCH (06:12)
[2024-10-22] MEDS: LOSARTAN POTASSIUM 25 MG TAB PO SCH (08:02)
[2024-10-22] MEDS: LORATADINE 10 MG TAB PO SCH (08:02)
[2024-10-22] MEDS: buPROPion XL 150 MG TABCR PO SCH (08:02)
--- NOTE | 2024-10-22 10:41 | Hospitalist Progress Note ---
Date of Service October 22, 2024 Assessment & Plan (1) Complicated UTI (urinary tract infection): Plan: Review of prior urine cultures: UCx on 07/11/2023 grew E. coli resistant to ceftriaxone/amoxicillin; susceptible to cefepime UCx on 06/17/2024 grew Staphylococcus epidermidis resistant to oxacillin; susceptible to daptomycin Most recent UCx on 10/05/2024 grew Staphylococcus epidermidis and Enterococcus faecalis Started on Macrobid on 10/08 Despite starting Macrobid, patient continues to have fever; failure of outpatient antibiotics Blood / UCx on arrival Cefepime 2000 mg IV q8h Daptomycin 475 mg IV q24h; hold statin Daily Rutherford catheter care Continue oxybutynin PRN (2) Indwelling Rutherford catheter present: Plan: -replaced in ER 10/21 (3) HLD (hyperlipidemia): Plan: crestor held (4) Parkinsonism: Plan: Continue Sinemet (5) Anxiety: Plan: Continue bupropion Continue alprazolam PRN (6) HTN (hypertension): Plan: Continue losartan Plan This is a 74-year-old male who presented on 10/21 for ongoing fever 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 Disposition: Admit to [facility] VTE PPx: Lovenox 40 mg SQ q24h Admission and Anticipated Discharge Date Admission Date: October 21, 2024 Subjective No events overnight. Pt resting comfortably in bed. Review of Systems Review of Systems: CONST: Negative for fever, body aches and chills. HENT: Negative for neck pain/stiffness, headache, congestion, sore throat, swelling. EYES: Negative for discharge/pain or vision changes. RESP: Negative for cough/hemoptysis and shortness of breath. CV: Negative chest pain, difficulty breathing, palpitations. ABD: Negative pain, nausea, vomiting. : Negative increase frequency, dysuria, blood in urine or stool. MUSC: Negative for muscle aches, edema. SKIN: Negative rash, lesions/sores. NEURO: Negative headache, dizziness, weakness. Physical Exam Physical Exam: GENERAL APPEARANCE NAD, activity normal for age, well developed/ well nourished, no cyanosis, pallor, or diaphoresis. EYES lids/conjunctiva normal. EARS/NOSE/THROAT Mucous membranes moist, nares normal, lips/teeth normal uvula midline without oral pharyngeal erythema, exudate or swelling TMs normal bilaterally. No lymphangitis/lymphedema. HEAD/NECK normocephalic atraumatic, no facial trauma, neck is supple. RESPIRATORY respiratory effort normal, speaks in full sentences, no tripod position, no accessory muscle use. Lungs clear to auscultation without rhonchi, wheezes, rales CARDIAC Regular rate and rhythm, no edema. ABDOMINAL Soft, ND/NT. No evidence of fluid wave. No pulsatile masses on exam, rebound tenderness, Funk sign or pain over Mcburney's point. MUSCLES/EXTREMITIES No abnormal range of motion, no swelling. SKIN Warm, pink and dry. No rashes, dermatoses, petechiae or lesions. NEUROLOGICAL Speech is clear and appropriate. Normal level of consciousness. Gait and coordination are normal. 5/5 strength in all extremities. PSYCH Normal mood and affect. Judgement/competence is appropriate Results & Data Results & Data Vital Signs (Past 12 Hours) Vital Signs Temp Pulse Resp BP Pulse Ox O2 Del Method 10/22/24 07:00 36.6 C 66 18 169/80 H 96 Room Air PG Care Time/CCT Total # of Minutes Spent Total Time Spent with Patient: Total time spent is greater than 50% in coordination of care (as documented) at patient's floor/unit and/or counseling patient: Coding Level of Care Code 49962 SUB INP/OBS CARE 2/35MIN Diagnoses Complicated UTI (urinary tract infection) N39.0 Indwelling Rutherford catheter present Z97.8 HLD (hyperlipidemia) E78.5 Parkinsonism G20 Anxiety F41.9 HTN (hypertension) I10
[2024-10-22] MEDS: DAPTOmycin 500 MG in SYRINGE 0 ML IV SCH (14:51)
[2024-10-22 19:32] VITALS: TEMP 97.7
[2024-10-23] MEDS: ALPRAZolam 0.25 MG TABLET PO PRN (00:36)
[2024-10-23 08:10] VITALS: BP 158/79; PULSE 61; RESP 18; O2SAT 96
[2024-10-23] MEDS: CARBIDOPA/LEVODOPA 50/200MG EXT REL TAB PO SCH (09:12)
--- NOTE | 2024-10-23 10:04 | Discharge Summary ---
"Discharge Summary Date of Service October 23, 2024 Principal Dx & Hospital Course #1 = Principal Diagnosis (1) Complicated UTI (urinary tract infection): (2) Indwelling Rutherford catheter present: (3) HLD (hyperlipidemia): (4) Catheter-associated urinary tract infection: (5) Parkinsonism: Plan This is a 74-year-old male who presented on 10/21 for ongoing fever and chills at home x 2 days [employer]. # Complicated UTI | chronic indwelling Rutherford No leukocytosis; afebrile on arrival, but reported fever and chills at home Procalcitonin WNL A/P CT with mild bilateral collecting system dilation and bladder wall th ickening Negative CVA tenderness on exam; lower suspicion for pyelonephritis at this time Review of prior urine cultures: UCx on 07/11/2023 grew E. coli resistant to ceftriaxone/amoxicillin; susceptibl e to cefepime UCx on 06/17/2024 grew Staphylococcus epidermidis resistant to oxacillin; susceptible to daptomycin Most recent UCx on 10/05/2024 grew Staphylococcus epidermidis and Enterococcus faecalis Started on Macrobid on 10/08 Despite starting Macrobid, patient continues to have fever; failure of outpatient antibiotics Blood / UCx on arrival Cefepime 2000 mg IV q8h Daptomycin 475 mg IV q24h; hold statin Daily Rutherford catheter care Continue oxybutynin PRN UA, Blood cultures negative Pt afebrile for 24hrs #Parkinson's disease Continue Sinemet #GERD Continue PPI #HLD Hold rosuvastatin #HTN Continue losartan #Anxiety/depression Continue bupropion Continue alprazolam PRN Disposition: Admit to [facility] VTE PPx: Lovenox 40 mg SQ q24h Admission HPI Per Admitting Provider Mr. Cheema is a 74-year-old male with PMH of Parkinson's disease, anxiety, depression, BPH, neurogenic bladder, indwelling Rutherford catheter, HTN, dyslipidemia, and B12 deficiency. He presented on 10/21 for fever/sweats x 2 days [employer]. Patient reports he had a fever yesterday morning and took 2 Tylenol, which improved his symptoms. He then woke up again today with fever/sweats; took 2 Tylenol 500 mg tablets at 7:30 AM. Patient is unsure how high his temperature was, as he did not check it with a thermometer. Patient reports he was recently at the emergency department on 10/05 for urinary retention. His urine culture that resulted on 10/08 grew bacteria, and he was placed on a course of Macrobid 100 mg p.o. twice daily x 10 days. Patient reports he completed the full course, but then began having fever shortly thereafter. He does have a history of recurrent UTIs. Chronic Rutherford catheter, was replaced today in the emergency department; normally it is replaced monthly; follows with Dr. Leblanc. Patient did not take his regular morning meds today, except for his Sinemet. Only recent change in medication is that he was increased from Sinemet 2 tablets 4 times daily, to Sinemet 2.5 tablets 4 times daily. Patient manages his own medicine at home. He ambulates with a walker at baseline. Besides the fever, his only other symptom has been decreased urinary frequency. No burning sensation in the groin, dysuria, change in urine color/smell, or low back pain. Patient ports he has been eating and drinking okay at home. He denies smoking, tobacco use, recent alcohol use. Vital stable at time of admission. ED course: Zosyn 4.5 g IV NSS 1000 mL IV Sinemet 25/100 mg p.o. ROS: Patient endorses fever, chills, sweats, instability when walking, nasal congestion, and dry cough. Patient denies body aches, joint pain, dizziness, lightheadedness, BARBER, chest pain, SOB, chest palpitations, abdominal pain, abdominal pain, N/V/D, blood in the urine/stool, burning with urination, lower back pain, saddle anesthesia, or numbness/tingling in the arms or legs. Discharge Exam GENERAL APPEARANCE NAD, activity normal for age, well developed/ well nourished, no cyanosis, pallor, or diaphoresis. EYES lids/conjunctiva normal. EARS/NOSE/THROAT Mucous membranes moist, nares normal, lips/teeth normal uvula midline without oral pharyngeal erythema, exudate or swelling TMs normal bilaterally. No lymphangitis/lymphedema. HEAD/NECK normocephalic atraumatic, no facial trauma, neck is supple. RESPIRATORY respiratory effort normal, speaks in full sentences, no tripod position, no accessory muscle use. Lungs clear to auscultation without rhonchi, wheezes, rales CARDIAC Regular rate and rhythm, no edema. ABDOMINAL Soft, ND/NT. No evidence of fluid wave. No pulsatile masses on exam, rebound tenderness, Funk sign or pain over Mcburney's point. MUSCLES/EXTREMITIES No abnormal range of motion, no swelling. SKIN Warm, pink and dry. No rashes, dermatoses, petechiae or lesions. NEUROLOGICAL Speech is clear and appropriate. Normal level of consciousness. Gait and coordination are normal. 5/5 strength in all extremities. PSYCH Normal mood and affect. Judgement/competence is appropriate Discharge Plan Discharge Items Patient Disposition: Home - Self-Care Reason For Visit: UTI, FAILURE OF OP ABX Discharge Diagnosis: UTI Condition on Discharge: Fair Activity: Resume your previous activity Non-emergency contact: Primary Care Provider Call non-emergency contact if: you have any medication questions Follow-up/Referrals: Teresa Das MD [Primary Care Provider] - Diet: Regular Addtl Attending Provider Instructions: Follow up with PMD in 1 week Pending Studies at Discharge: No Stand-Alone Forms: My [facility] [employer], Smoking Cessation Medications and DC Order Prescriptions: Continued carbidopa-levodopa [Sinemet] 25-100 mg tablet 2.5 tab PO QID losartan 25 mg tablet 25 mg PO QAM Qty: 90 3RF oxybutynin chloride 5 mg tablet 5 mg PO BID PRN (Reason: bladder spasms) Qty: 20 1RF alprazolam [Xanax] 0.25 mg tablet 0.125 - 0.25 mg PO HS PRN (Reason: sleep) Qty: 30 0RF Rx Instructions: Supervising physician Teresa Martin MD [facility] [id number] omeprazole 20 mg capsule,delayed release(DR/EC) 20 mg PO DAILYBB Qty: 90 3RF rosuvastatin 20 mg tablet 20 mg PO QAM Qty: 90 3RF bupropion HCl 300 mg tablet extended release 24 hr 450 mg PO QAM Qty: 90 2RF carbidopa-levodopa 36.25-145 mg Capsule, Extended Release 1 cap PO BID loratadine [Claritin] 10 mg Tablet 10 mg PO QAM cholecalciferol (vitamin D3) [Vitamin D3] 125 mcg (5,000 unit) Tablet 125 mcg PO QAM ferrous sulfate 325 mg (65 mg iron) tablet 325 mg PO Q OTHER DAY ondansetron 4 mg tablet,disintegrating 4 mg PO Q6H PRN (Reason: nausea and vomiting) Qty: 10 0RF Discharge Orders: Discharge Order (Routine); Ordered 10/23/24 Ordered By: Richar Mcdermott Admission Data Admit Date/Time: 10/21/24 15:07 Attending Provider: Richar Mcdermott Admit Provider: Ramses Holt Primary Care Provider: Teresa Das Other Providers: Ramses Holt Hospital Stay Data Consultations 10/21/24 14:10 ED Decision to Admit Stat Diagnostic Imagining Performed 10/21/24 12:19 CT abd pelvis IV con only Stat Pending Results Patient Have Any Pending Studies at Discharge: No Discharge Instructions Given to Patient (Per Discharging Provider) Follow up with PMD in 1 week Total Time Total Time Spent Total Time Spent (In Minutes): 50 Coding Level of Care Code 90161 INP/OBS DISCH >30 MIN Diagnoses Complicated UTI (urinary tract infection) N39.0 Indwelling Rutherford catheter present Z97.8 HLD (hyperlipidemia) E78.5 Catheter-associated urinary tract infection T83.511A; N39.0 Parkinsonism G20"
== END 2024-10-23 11:00 | disposition home or self-care (01) | DRG 700 ==
LOC: ED 08:48 → 3E 15:07 → SUATTDRO 15:07 → 3E 16:05

== ENCOUNTER 2025-01-27 09:53 | Observation (INO) ==
--- NOTE | 2025-01-27 10:47 | Emergency Department Note ---
Impression & Plan Generalized weakness, Nausea and vomiting ED Provider Note HISTORY OF PRESENT ILLNESS: Patient is a 74-year-old male presenting with nausea and generalized weakness. Patient reportedly has been having nausea for the past 2 weeks with intermittent episodes of vomiting. He reportedly is vomiting at least once a day. He woke up this morning and his urine is "the color of [employer]." He reportedly has not really been tolerating anything to eat or drink in the last 48 hours. Denies any chest pain or shortness of breath. They were referred to the ER by the PCP. Patient had a bowel movement yesterday. Denies any abdominal pain. Denies any abdominal surgical history. Denies any recent fevers or chills or recent sick contact exposures. ROS: as above PHYSICAL EXAM: Constitutional: Patient appears in no acute distress. HENT: Head: Normocephalic and atraumatic. Eyes: EOMI, PERRL Mouth/Throat: Mucous membranes dry. Neck: Trachea midline. Neck supple. Cardiovascular: RRR, No murmurs, rubs or gallops. Intact distal pulses. Pulmonary/Chest: No respiratory distress. Breath sounds clear and equal bilaterally. No wheezes or rales. Abdominal: Abdomen soft, no tenderness, rebound or guarding. Musculoskeletal: No edema, tenderness or deformity noted. Skin: Warm and dry. No rash, erythema, pallor or cyanosis Psychiatric: Appropriate mood and affect for situation. Neurological: Alert and keenly responsive. CN II-XII grossly intact, moving all extremities equally and fully. MDM: - Vitals signs stable. - History obtained via patient. History as above. - Chronic conditions affecting care: HTN; BPH; GERD; HLD; neurogenic bladder - Differential diagnoses include, but are not limited to: Bowel obstruction; ileus; viral syndrome; electrolyte abnormality; acute dehydration; ACS - Order placed for continuous cardiac monitoring. At this time, monitor showed rate of 71 bpm with normal sinus rhythm, per my interpretation. - External medical records reviewed. Primary care visit note dated 01/20/2025 was reviewed. Patient was seen for follow-up from the ER for his nausea and vomiting. - EKG image interpreted by myself showed normal sinus rhythm. Rate 62 bpm. QT 422. No acute ischemic changes. - Laboratory workup interpreted by myself showed normal WBC; anemia (Hgb 9.4); stable electrolytes; normal creatinine (Cr 1.31 - elevated from recent 1.05 on 01/20); normal AST/ALT; normal lactate; normal troponin - UA negative for infection - Negative Lyme, anaplasmosis and babesia - Patient given 1L NS in ER. - Patient had a relatively normal CT abdomen/pelvis performed on 01/13/2025. He has no reproducible abdominal pain today and is having normal bowel movements, so CT abdomen/pelvis was considered to be obtained it was not. - Discussed results with the patient and his at bedside. expresses concern about the patient's weakness and his persistent nausea. Will admit to hospitalist service. - Discussion was had with case preparer and liner about patient's case and need for admission - Hospitalist, Dr. Caldwell, consulted for admission at 13:50 - Patient admitted to [facility] hospitalist service for further evaluation and management. ASSESSMENT AND PLAN: Diagnosis: Generalized weakness; nausea and vomiting Plan: admit Past Med/Surg History Problem List (Updated 01/27/25 @ 13:55 by Vicki Garcia MD) Nausea and vomiting (Acute) Generalized weakness (Acute) Acute UTI (Acute) Complication, blocked Rutherford catheter (Acute) Head injury (Acute) Dehydration (Acute) Nausea and vomiting (Acute) Catheter-associated urinary tract infection Complicated urinary tract infection (Acute) HLD (hyperlipidemia) Complicated UTI (urinary tract infection) Mixed insomnia COVID-19 (Acute) Neurogenic bladder Indwelling Rutherford catheter present (Acute) Anxiety Urinary tract obstruction Hydronephrosis B12 deficiency Erectile dysfunction Dyslipidemia BPH with obstruction/lower urinary tract symptoms HTN (hypertension) GERD (gastroesophageal reflux disease) 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 Iron deficiency anemia Vitamin D deficiency Allergic rhinitis Recurrent UTI 05/12/23 currently on doxy for this Major depressive disorder with single episode History of urethral stricture Parkinsonism (Acute) Follows with neurology= "patient has sub optimally controlled rigid-akinetic type Parkinson's with some response to higher doses of carbidopa levodopa" Progressive supranuclear palsy Medical History Constipation Nausea and vomiting after administration of anesthetic agent History of COVID-19 early 2022- no hospitalized, resolved Surgical History Hx of tooth extraction Urinary anastomotic stricture Family History Mother Depression Diabetes Other Hypertension Denies family history of Ovarian cancer Prostate cancer Myocardial infarction Breast cancer Colorectal cancer Social History Smoking Status: Former smoker Tobacco Type: Cigarettes Age Started Using Tobacco: 19; Age Quit Using Tobacco: 46; packs per day: 1; Second Hand Exposure: No; Do You Dip or Chew Tobacco: No; Hx Alcohol Use: No Hx Substance Use: No Preferred Language: Portuguese Communication Ability: Effective Visual Impairment: No Limitations Seafood Process 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 Required: No Beliefs That Will Affect Care: None marital status: Current Living Situation: Spouse and Other Current Living Situation Comment: son current occupational status: retired How many Children do You have: 3 Feels Safe at Home: Yes Childhood Exposure to Second-Hand Smoke: No Diet: regular caffeine: Yes Dental Care, Regularly: No Physical Activity Frequency: Does not Exercise Seatbelt Use: always Sunscreen Use: Yes Assistive Devices: Cane, Walker, Wheelchair and Other Allergies Allergies Allergy/AdvReac Type Severity Reaction Status Date / Time No Known Allergies Allergy Verified 01/20/25 13:48 Home Meds Home Medications Medication Instructions Recorded Confirmed cholecalciferol (vitamin D3) 125 125 mcg PO QAM 02/05/21 01/20/25 mcg (5,000 unit) tablet (Vitamin D3) loratadine 10 mg tablet (Claritin) 10 mg PO QAM 02/05/21 01/20/25 carbidopa ER 36.25 mg-levodopa 145 1 cap PO BID 04/17/23 01/20/25 mg capsule,extended release carbidopa 25 mg-levodopa 100 mg 2.5 tab PO TID 10/26/24 01/20/25 tablet (Sinemet) oxybutynin chloride 5 mg tablet 5 mg PO DAILY 01/20/25 01/20/25 Previous Rx's Medication Instructions Recorded bupropion HCl 300 mg 24 hr tablet, 450 mg (1.5 x 300 mg) PO QAM #90 07/14/24 extended release tabs rosuvastatin 20 mg tablet 20 mg PO QAM #90 tabs 12/01/24 losartan 25 mg tablet 25 mg PO QAM #90 tabs 01/13/25 alprazolam 0.25 mg tablet (Xanax) 0.125 - 0.25 mg (0.5 - 1 x 0.25 01/20/25 mg) PO HS PRN sleep #30 tabs omeprazole 20 mg capsule,delayed 20 mg PO BID #90 caps 01/20/25 release sulfamethoxazole 800 1 tab PO Q12H #20 tabs 01/23/25 mg-trimethoprim 160 mg tablet (Bactrim DS) Results & Data (ED) Vital Signs Vital Signs - 24 hr 01/27/25 10:07 01/27/25 10:50 01/27/25 10:50 Temperature 36.4 C L Temperature Source Temporal Artery Scan Pulse Rate 67 62 Pulse Rate [Apical] 63 Respiratory Rate 20 18 Respiratory Effort / Characteristics Non-Labored Spontaneous Non-Labored Spontaneous Respiratory Depth Normal Normal Respiratory Pattern Regular Blood Pressure 105/66 Blood Pressure [Right Arm] 114/60 Blood Pressure Mean 79 Blood Pressure Mean [Right Arm] 78 Pulse Oximetry 99 Oxygen Delivery Method Room Air Sepsis Recent Fever Within 48 Hours No Sepsis New/Unexplained Change in Mental Status N/A Sepsis Action Taken by Nursing No Action Required 01/27/25 10:51 01/27/25 12:07 Temperature Temperature Source Pulse Rate Pulse Rate [Apical] 71 Respiratory Rate 18 Respiratory Effort / Characteristics Non-Labored Spontaneous Respiratory Depth Normal Respiratory Pattern Regular Blood Pressure Blood Pressure [Right Arm] 121/60 Blood Pressure Mean Blood Pressure Mean [Right Arm] 80 Pulse Oximetry 98 99 Oxygen Delivery Method Room Air Room Air Sepsis Recent Fever Within 48 Hours Sepsis New/Unexplained Change in Mental Status Sepsis Action Taken by Nursing Laboratory Data 01/27/25 10:32 01/27/25 10:32 Lab Results 01/27/25 01/27/25 Range/Units 10:32 Unknown WBC 6.82 (4.8-10.8) K/ul RBC 3.62 L (4.70-6.10) M/uL Hgb 9.4 L (14.0-18.0) g/dl Hct 28.5 L (42.0-52.0) % MCV 78.7 L (80.0-100.0) fL MCH 26.0 (25.0-34.0) pg MCHC 33.0 (32.0-36.0) g/dL RDW Std Deviation 53.9 H (36.4-46.3) fL RDW Coeff of Ana Rosa 19.7 H (11.5-14.5) % Plt Count 217 (130-400) K/uL Immature Gran % (Auto) 0.4 % Neut % (Auto) 73.6 % Lymph % (Auto) 14.7 % [place] % (Auto) 10.1 % Eos % (Auto) 0.6 % Baso % (Auto) 0.6 % Neut # (Auto) 5.02 (1.40-6.50) K/uL Lymph # (Auto) 1.00 L (1.20-3.40) K/uL Lincoln # (Auto) 0.69 H (0.11-0.59) K/uL Eos # (Auto) 0.04 (0.00-0.50) K/uL Baso # (Auto) 0.04 (0.00-0.20) K/uL Immature Gran # (Auto) 0.03 (0.01-0.20) K/uL Polychromasia 1+ Ovalocytes 1+ PT 11.2 (9.0-12.0) Seconds INR 1.0 (0.9-1.1) Sodium 136 (136-145) mmol/L Potassium 3.7 (3.5-5.1) mmol/L Chloride 104 (98-107) mmol/L Carbon Dioxide 24 (21-32) mmol/L Anion Gap 8 (3-11) BUN 14 (6-23) mg/dl Creatinine 1.31 (0.6-1.4) mg/dl Est Cr Clr Drug Dosing 48.6 ml/min eGFR 57.48 BUN/Creatinine Ratio 10.7 (10-20) Glucose 93 (70-99(Fasting)) mg/dl Lactate 1.1 (0.4-2.0) mmol/L Calcium 9.2 (8.6-10.3) mg/dl Total Bilirubin 0.8 (0.2-1.0) mg/dl AST 7 L (13-39) U/L ALT < 3 L (7-52) U/L Alkaline Phosphatase 64 (34-104) U/L Troponin I High Sens 4.8 (0-20) pg/ml Total Protein 6.9 (6.0-8.3) gm/dl Albumin 4.2 (3.4-5.0) gm/dl Globulin 2.7 (2.5-4.0) gm/dl Albumin/Globulin Ratio 1.6 (0.9-2) Lipase 4 L (11-82) U/L Urine Color Yellow Urine Appearance Clear (Clear) Urine pH 6.5 (4.5-7.5) Ur Specific [place] 1.018 (1.000-1.030) Urine Protein 1+ H (Negative) Urine Glucose (UA) Negative (Negative) Urine Ketones 1+ H (Negative) Urine Blood Negative (Negative) Urine Nitrite Negative (Negative) Urine Bilirubin Negative (Negative) Urine Urobilinogen Negative (Negative) Ur Leukocyte Esterase 2+ H (Negative) Urine WBC (Auto) 11-20 H (0-5) /hpf Urine RBC (Auto) 3-5 H (0-2) /hpf U Hyaline Cast (Auto) 6-10 H (0-2) /lpf U Epithel Cells (Auto) 3-5 H (0-2) /hpf Urine Bacteria (Auto) None Seen (None Seen) Hyaline Casts Present A (None Presnt) /lpf Granular Casts Present A (None Prsent) /lpf Urine Comment Anaplasma Smear See Comment Babesia Smear See Comment Lyme Disease Screen Negative (Negative) Administered Medications Discontinued Medications Sodium Chloride (Nss) 1,000 mls @ 999 mls/hr IV .Q1H1M ONE Stop: 01/27/25 11:41 Last Infusion: 01/27/25 12:07 Dose: Infused Documented By: Admin: 01/27/25 10:48 Dose: 999 mls/hr Documented By: MOHINDER Discharge Plan Visit Data Chief Complaint: Vomiting Stated Complaint: NAUSEA, VOMITING, REF BY DOC ED Provider: Vicki Garcia Discharge Problem: Generalized weakness, Nausea and vomiting Condition: Fair Forms Stand Alone Forms: My [facility] [employer] Prescriptions Prescriptions: No Action carbidopa-levodopa [Sinemet] 25-100 mg tablet 2.5 tab PO TID Rx Instructions: TAKES @ 0800, 1130, 1500, 1830, 7 2200 rosuvastatin 20 mg tablet 20 mg PO QAM Qty: 90 3RF losartan 25 mg tablet 25 mg PO QAM Qty: 90 3RF oxybutynin chloride 5 mg tablet 5 mg PO DAILY omeprazole 20 mg capsule,delayed release(DR/EC) 20 mg PO BID Qty: 90 3RF alprazolam [Xanax] 0.25 mg tablet 0.125 - 0.25 mg PO HS PRN (Reason: sleep) Qty: 30 0RF Rx Instructions: Supervising physician Teresa Martin MD I [id number] [facility] [id number] bupropion HCl 300 mg tablet extended release 24 hr 450 mg PO QAM Qty: 90 2RF carbidopa-levodopa 36.25-145 mg Capsule, Extended Release 1 cap PO BID Rx Instructions: TAKES @ 0800 & 2200 loratadine [Claritin] 10 mg Tablet 10 mg PO QAM cholecalciferol (vitamin D3) [Vitamin D3] 125 mcg (5,000 unit) Tablet 125 mcg PO QAM sulfamethoxazole-trimethoprim [Bactrim DS] 800-160 mg tablet 1 tab PO Q12H Qty: 20 0RF Referrals Referrals: Teresa Das MD [Primary Care Provider] -
[2025-01-27] MEDS: SODIUM CHLORIDE 0.9% 1,000 ML IV ONE (10:48)
[2025-01-27 11:03] LABS: Hematocrit (blood only) 28.5 % (42.0-52.0); Hemoglobin 9.4 g/dl (14.0-18.0); Mean Corpuscular Hemoglobin 26.0 pg (25.0-34.0); Mean Corpuscular Volume 78.7 fL (80.0-100.0); RDW Standard Deviation 53.9 fL (36.4-46.3); Red Blood Count 3.62 M/uL (4.70-6.10); White Blood Count 6.82 K/ul (4.8-10.8)
[2025-01-27 11:06] LABS: Platelet Count 217 K/uL (130-400)
[2025-01-27 11:23] LABS: Alanine Aminotransferase < 3 U/L (7-52); Albumin Globulin Ratio 1.6 (0.9-2); Albumin Level 4.2 gm/dl (3.4-5.0); Alkaline Phosphatase 64 U/L (34-104); Anion Gap 8 (3-11); Bilirubin,Total 0.8 mg/dl (0.2-1.0); Blood Urea Nitrogen 14 mg/dl (6-23); Calcium 9.2 mg/dl (8.6-10.3); Carbon Dioxide 24 mmol/L (21-32); Chloride 104 mmol/L (98-107); Creatinine Clr Calc Pharmacy 48.6 ml/min; Globulin 2.7 gm/dl (2.5-4.0); Glucose 93 mg/dl (70-99(Fasting)); Lipase 4 U/L (11-82); Potassium 3.7 mmol/L (3.5-5.1); Sodium 136 mmol/L (136-145); Total Protein 6.9 gm/dl (6.0-8.3)
[2025-01-27 11:27] LABS: Immature Granulocytes # (auto) 0.03 K/uL (0.01-0.20); Immature Granulocytes % (auto) 0.4 %; Ovalocytes 1+; Polychromasia 1+
[2025-01-27 11:56] LABS: INR 1.0 (0.9-1.1); Prothrombin Time 11.2 Seconds (9.0-12.0)
[2025-01-27 12:23] LABS: Appearance Urine Clear (Clear); Bacteria Urine Automated None Seen (None Seen); Glucose Urine UA Negative (Negative)
--- NOTE | 2025-01-27 15:17 | History & Physical Report ---
Date of Service January 27, 2025 Assessment & Plan (1) Nausea and vomiting: Plan: Nausea/anorexia with generalized weakness Anorexia/no p.o. intake past 48 hours Creatinine slightly elevated from baseline but without threshold for FRANCO; however has had cola colored urine last day. ?developing ATN. Sodium/potassium normal D5LR added No abdominal tenderness, no pain at all to light or deep palpation in all quadrants. KUB pending. If normal then ?gastritis/gerd vs Parkinsons associated gastroparesis/motility dysfunction. Dopaminergic prokinetic/antiemetics are contraindicated. Will tx for GERD with PPI/H2. BUN is not elevated and no melena suggestive of UGIB. If not improving --> trial a course of erythromycin with meals, monitor closely for QT prolongation. QT 428 on admission More anxious vomiting, clinical progression is not consistent with viral/GI illness. Stool BioFire deferred May have some underlying gastritis, IV Pepcid twice daily added and omeprazole converted to IV until p.o. intake improves - GI consulted for ?EGD due to persistent sx - Some diffuse neuropathy +anemia. microcytic, but likely with both iron and vitamin deficiencies. b12 level pending Microcytic Anemia - no active bleeding. BUN wnl. hgb 9.4 microcytic mcv 78 - iron levels pending - tx with venofer if ferritin/tsat low - trend hgb Parkinsons - Home meds continued HTN - Losartan held for concern of developing FRANCO and change in urine quality - Resume if Cr stable/wnl DVT PPx: Lovenox CODE: DNR Dispo: MSO (2) Generalized weakness: (3) BPH with obstruction/lower urinary tract symptoms: (4) HTN (hypertension): (5) GERD (gastroesophageal reflux disease): (6) Major depressive disorder with single episode: (7) Parkinsonism: History of Present Illness Primary Care Provider: Teresa Das MD Sanjay is a 74-year-old male with a past medical history of B12 deficiency, hypertension, GERD, iron deficiency anemia, MDD, parkinsonism, progressive supranuclear palsy who presents with recurrent nausea/vomiting and poor p.o. intake which is because generalized weakness which has progressed to the point where he can no longer function independently at home. He has no leukocytosis CMP is without acute abnormalities UA is not infected appearing Anaplasma/Lyme/Babesia testing is negative Per ER signout abdomen is tender, repeat imaging deferred. Has had similar symptoms which were evaluated in the ER on 01/13 and 01/24. CTA/P at that time with contrast showed no acute findings or changes, and repeat imaging was deferred due to benign abdomen. 2 weeks of nausea and weakness. Nonbloody nonbilious emesis. Dark/cola colored urine questionable ATN although renal function appears near baseline Per Pt with At Bedside: Has intermittent nausea relieved by vomiting. Really progressed in the last 2 weeks. Nausea seems to happen in the evening around 4:30-5pm. Lasts throughout the evening and generally feels a little better after throwing up in the evening. No blood. Nothing black/melanic. Color is usually clear. He has not been able to eat breakfast or lunch most of the time. Sporadically has some crackers and a few sips of protein drinks, but has not even gotten through 1 bottle of protein shake. urine this mornign was color of cola. No diarrhea. Last bowel movement was yesterday evening, brownish. No melena/blood in the toilet. No white or nara colored stool to his knowlege, but he does not really look. NO history of problems like this before No fevers or chills. No new sweats or night sweats, but gets some sweats at baseline. no chest pain, no shortness of breath Switched from Gemtesa to oxybutinin PRN. No recent medication changes in the last 2 months. Parkinsons is 'ok, its Parkisons' per pt, but notes hands and feel have felt more numb and tingly lately. Also falling more often, feeling globally weak and tired but denies focal weakness. No vision change. Bactrim --> Started Friday for a UTI. Nausea preceded this. Medical History: Reviewed Medications: Reviewed Surgical History: Reviewed Family history: Reviewed Allergies: Reviewed. NKDA Social History: No alcohol use, no tobacco use, no drug use. Code Status: DNR/DNI Allergies Allergy/AdvReac Type Severity Reaction Status Date / Time No Known Allergies Allergy Verified 01/20/25 13:48 Home Medications Medication Instructions Recorded Confirmed Type cholecalciferol (vitamin D3) 125 125 mcg PO QAM 02/05/21 01/27/25 History mcg (5,000 unit) tablet (Vitamin D3) loratadine 10 mg tablet (Claritin) 10 mg PO QAM 02/05/21 01/27/25 History carbidopa ER 36.25 mg-levodopa 145 1 cap PO BID 04/17/23 01/27/25 History mg capsule,extended release carbidopa 25 mg-levodopa 100 mg 3 tab PO TID 10/26/24 01/27/25 History tablet (Sinemet) rosuvastatin 20 mg tablet 20 mg PO QAM #90 tabs 12/01/24 01/27/25 Rx losartan 25 mg tablet 25 mg PO QAM #90 tabs 01/13/25 01/27/25 Rx alprazolam 0.25 mg tablet (Xanax) 0.125 - 0.25 mg (0.5 - 1 x 0.25 01/20/25 01/27/25 Rx mg) PO HS PRN sleep #30 tabs omeprazole 20 mg capsule,delayed 20 mg PO BID #90 caps 01/20/25 01/27/25 Rx release oxybutynin chloride 5 mg tablet 5 mg PO DAILY 01/20/25 01/27/25 History sulfamethoxazole 800 1 tab PO Q12H #20 tabs 01/23/25 01/27/25 Rx mg-trimethoprim 160 mg tablet (Bactrim DS) bupropion HCl 300 mg 24 hr tablet, 300 mg PO QAM 01/27/25 01/27/25 History extended release Past Med/Surg History Problem List (Updated 01/27/25 @ 13:55 by Vicki Garcia MD) Nausea and vomiting (Acute) Generalized weakness (Acute) Acute UTI (Acute) Complication, blocked Rutherford catheter (Acute) Head injury (Acute) Dehydration (Acute) Nausea and vomiting (Acute) Catheter-associated urinary tract infection Complicated urinary tract infection (Acute) HLD (hyperlipidemia) Complicated UTI (urinary tract infection) Mixed insomnia COVID-19 (Acute) Neurogenic bladder Indwelling Rutherford catheter present (Acute) Anxiety Urinary tract obstruction Hydronephrosis B12 deficiency Erectile dysfunction Dyslipidemia BPH with obstruction/lower urinary tract symptoms HTN (hypertension) GERD (gastroesophageal reflux disease) 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 Iron deficiency anemia Vitamin D deficiency Allergic rhinitis Recurrent UTI 05/12/23 currently on doxy for this Major depressive disorder with single episode History of urethral stricture Parkinsonism (Acute) Follows with neurology= "patient has sub optimally controlled rigid-akinetic type Parkinson's with some response to higher doses of carbidopa levodopa" Progressive supranuclear palsy Medical History Constipation Nausea and vomiting after administration of anesthetic agent History of COVID-19 early 2022- no hospitalized, resolved Surgical History Hx of tooth extraction Urinary anastomotic stricture Family History Mother Depression Diabetes Other Hypertension Denies family history of Ovarian cancer Prostate cancer Myocardial infarction Breast cancer Colorectal cancer Social History Smoking Status: Former smoker Tobacco Type: Cigarettes Age Started Using Tobacco: 19; Age Quit Using Tobacco: 46; packs per day: 1; Second Hand Exposure: No; Do You Dip or Chew Tobacco: No; Hx Alcohol Use: No Hx Substance Use: No Preferred Language: Italian Communication Ability: Effective Visual Impairment: No Limitations Manager Cash Required: No Beliefs That Will Affect Care: None marital status: Current Living Situation: Spouse and Other Current Living Situation Comment: son current occupational status: retired How many Children do You have: 3 Feels Safe at Home: Yes Childhood Exposure to Second-Hand Smoke: No Diet: regular caffeine: Yes Dental Care, Regularly: No Physical Activity Frequency: Does not Exercise Seatbelt Use: always Sunscreen Use: Yes Assistive Devices: Cane, Walker, Wheelchair and Other Physical Exam Physical Exam: General: A&Ox3. NAD. Cooperative. HEENT: Atraumatic, normocephalic. Vision/hearing intact. PERLAA. Pulm: CTAB A&P. -wheezes, -rales, -rhonchi. Symmetrical chest rise. No increased work of breathing. No respiratory distress. Cardiac: RRR, -mrg. Radial pulses intact and symmetrical. Abdominal: Nontender, nondistended, soft. BS present. 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 +b/l resting arm tremor, +b/l rigidity Results & Data Results & Data Vital Signs (Past 12 Hours) Vital Signs Temp Pulse Pulse Resp BP BP Pulse Ox 01/27/25 13:59 36.6 C 75 19 131/62 99 01/27/25 12:07 71 18 121/60 99 01/27/25 10:51 98 01/27/25 10:50 63 18 114/60 01/27/25 10:50 62 01/27/25 10:07 36.4 C L 67 20 105/66 99 O2 Del Method 01/27/25 13:59 Room Air 01/27/25 12:07 Room Air 01/27/25 10:51 Room Air 01/27/25 10:50 01/27/25 10:50 01/27/25 10:07 Room Air PG Care Time/CCT Total # of Minutes Spent Total Time Spent with Patient: Total time spent is greater than 50% in coordination of care (as documented) at patient's floor/unit and/or counseling patient: Coding Level of Care Code 57036 INT INP/OBS CARE 3/75MIN Diagnoses Nausea and vomiting R11.2 Generalized weakness R53.1 BPH with obstruction/lower urinary tract symptoms N40.1; N13.8 HTN (hypertension) I10 GERD (gastroesophageal reflux disease) K21.9 Major depressive disorder with single episode F32.9 Parkinsonism G20
--- NOTE | 2025-01-27 16:39 | XRay Report ---
Clinical history: Nausea and vomiting One view of the abdomen was obtained Comparison is made to the prior examination dated 07/11/2023 Findings: There is new diffuse gastric dilatation of small and large bowel loops that may be due to ileus. No renal or ureteral calculi are seen. No foreign body is evident. No osseous abnormality is seen. A Rutherford catheter is present Impression: Suspected ileus Electronically signed by Lars Dubon 01-27-2025 4:38 PM
[2025-01-27] MEDS ORDERED: ACETAMINOPHEN 325 MG TAB PO PRN (17:37)
[2025-01-27 18:50] LABS: Iron 128.0 mcg/dl (35-175); Total Iron Binding Cap Calc 314.0 mcg/dl (250-450); Transferrin 224.0 mg/dl (200-360); Transferrin (FE) Percent Satur 41.0 % (20-50)
[2025-01-27 19:10] LABS: Ferritin 438.0 ng/ml (8-388)
[2025-01-27 19:16] LABS: Folate (Folic Acid),Ser orPlas 5.36 ng/ml (>5.38)
[2025-01-27 19:17] LABS: Vitamin B12 121.0 pg/ml (180-914)
[2025-01-27] MEDS: CARBIDOPA/LEVODOPA 25/100MG TAB PO SCH (20:00)
[2025-01-27] MEDS: FAMOTIDINE 20MG IV PUSH 20 MG/5 ML SYR IV SCH (22:06)
[2025-01-27] MEDS: PANTOprazole 40 MG/10 ML SYR IV SCH (22:06)
[2025-01-27] MEDS: ENOXAPARIN INJ 40 MG/0.4 ML SYR SQ SCH (22:06)
[2025-01-27] MEDS: GABAPENTIN 100 MG CAP PO SCH (22:07)
[2025-01-27] MEDS: CARBIDOPA LEVODOPA PO SCH (22:25)
[2025-01-28 07:33] LABS: Hematocrit (blood only) 27.2 % (42.0-52.0); Hemoglobin 8.9 g/dl (14.0-18.0); Immature Granulocytes # (auto) 0.02 K/uL (0.01-0.20); Immature Granulocytes % (auto) 0.3 %; Mean Corpuscular Hemoglobin 25.6 pg (25.0-34.0); Mean Corpuscular Volume 78.2 fL (80.0-100.0); Platelet Count 189 K/uL (130-400); RDW Standard Deviation 53.5 fL (36.4-46.3); Red Blood Count 3.48 M/uL (4.70-6.10); White Blood Count 6.92 K/ul (4.8-10.8)
--- NOTE | 2025-01-28 07:45 | Hospitalist Progress Note ---
Date of Service January 28, 2025 Assessment & Plan (1) Nausea and vomiting: Plan: Nausea/anorexia with generalized weakness Anorexia/no p.o. intake past 48 hours EGD: Mild gastritis. Multiple gastric polyps Continue PPI/H2 Consider HIDA scan if continued symptoms. Appreciate GI recommendations Patient symptomatically feels improved 01/28 B12 was markedly elevated, this is being repleted as noted Microcytic Anemia - no active bleeding. BUN wnl. hgb 9.4 microcytic mcv 78 - iron levels are not consistent with iron deficiency, ferritin is actually slightly elevated and transferrin saturation 41%.? Underlying information causing ferritin to be elevated as a phase reactant however transferrin saturation also does not suggest iron deficiency. -He is B12 and folate deficient, supplementation for these have been ordered. High-dose folate has been ordered for B12 due to concurrent polyneuropathy. No known history of thalassemia, no drug use. No known lead exposure. Will also add a multivitamin with mineral supplementation B12/folate deficiency B12 low at 121, folate low at 5.36 B12 likely contributing to polyneuropathy, may also contribute to nausea IM B12 ordered, 1000 mcg daily x 1 week then switch to IM weekly Folate supplementation p.o. ordered. 1 dose IV given initially until oral intake improves Parkinsons - Home meds continued HTN - Cr 1.22 BP upper range of normal Losartan resumed DVT PPx: Lovenox CODE: DNR Dispo: MSO (2) Generalized weakness: (3) BPH with obstruction/lower urinary tract symptoms: (4) HTN (hypertension): (5) GERD (gastroesophageal reflux disease): (6) Major depressive disorder with single episode: (7) Parkinsonism: Admission and Anticipated Discharge Date Admission Date: January 27, 2025 Subjective Likely seen at the bedside with his present. He reports he actually feels much better, slept well, and has an appetite this morning. He had an EGD which showed some gastritis but was generally unremarkable. Was suggested to have follow-up HIDA scan if ongoing symptoms. As his symptoms appear to be improved will advance diet to clears tonight and follow-up for regular tomorrow. Physical Exam Physical Exam: General: Somnolent, awakens easily and alert and oriented to name and place HEENT: Atraumatic, normocephalic. Vision/hearing intact. PERLAA. Pulm: CTAB A&P. -wheezes, -rales, -rhonchi. Symmetrical chest rise. No increased work of breathing. No respiratory distress. Cardiac: RRR, -mrg. Radial pulses intact and symmetrical. Abdominal: Nontender, nondistended, soft. BS present. 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 +b/l resting arm tremor, +b/l rigidity Results & Data Results & Data Vital Signs (Past 12 Hours) Vital Signs Temp Pulse Resp BP Pulse Ox O2 Del Method 01/27/25 22:17 36.4 C L 74 14 105/62 96 Room Air 01/27/25 21:20 Room Air PG Care Time/CCT Total # of Minutes Spent Total Time Spent with Patient: Total time spent is greater than 50% in coordination of care (as documented) at patient's floor/unit and/or counseling patient: Coding Level of Care Code 81926 SUB INP/OBS CARE 3/50MIN Diagnoses Nausea and vomiting R11.2 Generalized weakness R53.1 BPH with obstruction/lower urinary tract symptoms N40.1; N13.8 HTN (hypertension) I10 GERD (gastroesophageal reflux disease) K21.9 Major depressive disorder with single episode F32.9 Parkinsonism G20
[2025-01-28 08:02] LABS: Anion Gap 10.0 (3-11); Blood Urea Nitrogen 14.0 mg/dl (6-23); Calcium 8.8 mg/dl (8.6-10.3); Carbon Dioxide 21.0 mmol/L (21-32); Chloride 105.0 mmol/L (98-107); Creatinine Clr Calc Pharmacy 52.2 ml/min; Glucose 49.0 mg/dl (70-99(Fasting)); Potassium 4.0 mmol/L (3.5-5.1); Sodium 136.0 mmol/L (136-145)
[2025-01-28] MEDS: D5W AND LACTATED RINGERS 1,000 ML IV SCH (08:15)
[2025-01-28] MEDS: FOLIC ACID 1 MG in SYRINGE 9.8 ML IV STA (08:49)
[2025-01-28] MEDS: DEXTROSE 50% 50 ML SYRINGE IV ONE (08:50)
[2025-01-28] MEDS: CEROVITE ADV FORMULA TAB PO SCH (08:52)
[2025-01-28] MEDS: FOLIC ACID 1 MG TAB PO SCH (08:52)
[2025-01-28] MEDS: CHOLECALCIFEROL 125 MCG (5,000 UNITS) TAB PO SCH (08:53)
[2025-01-28] MEDS: LORATADINE 10 MG TAB PO SCH (08:53)
[2025-01-28] MEDS: ROSUVASTATIN CALCIUM 20 MG TAB PO SCH (08:53)
[2025-01-28] MEDS: CYANOCOBALAMIN 1000 MCG/ML VIAL IM SCH (08:54)
--- NOTE | 2025-01-28 09:58 | Gastrointestinal Consultation ---
Date of Consultation January 28, 2025 Assessment & Plan (1) Nausea and vomiting: (2) Dysphagia: (3) Constipation: Plan Patient with 2 weeks of nausea/vomiting with unable to tolerate oral intake 48 hours prior to admission. Currently feels like he has a pill stuck in his eso phagus which is a new issue. He has constipation at baseline. Discussed case with Dr. Lau. - patient and family wishes to have an EGD to further evaluate his symptoms. he has been NPO. No recent vomiting. will set up EGD for today. - continue with protonix 40mg bid and famotidine 20mg bid. - start miralax 17gm daily given history of constipation. Supervising Physician Co-Signing Physician Notes Sanjay to see now is a pleasant 74-year-old gentleman seen with his at the bedside. He was admitted with a history of 2 weeks of nausea. He states his symptoms usually come on at night. It is associated with dry heaves. He states he actually does not vomit. During the day his appetite is significantly diminished and his states he has not been eating much. He has lost weight. He has not been able to move his bowels over the past few days. CT scan on admission was overall unremarkable. He underwent a flatplate of his abdomen which was concerning for an ileus. As an outpatient, his omeprazole which he was chronically on was increased to twice daily. This did not improve his symptoms at all. He denies any new medications recently he denies any significant NSAID use. Will plan for EGD today to rule out peptic ulcer disease or any other mucosal-based pathology which could be contributing to his symptoms. If EGD is negative I will most likely proceed with a HIDA scan. History of Present Illness Reason for Consultation: ongoing nausea, vomiting, and anorexia. ? gastroparesis. Requesting Physician: Dustin Caldwell MD Attending Physician: Dustin Caldwell MD History of Present Illness Patient is a 74 year old male with a past medical history of B12 deficiency, hypertension, GERD, iron deficiency anemia, MDD, parkinsonism, progressive supranuclear palsy who presented to the ED on 01/27 with issues of nausea/vomiting and poor oral intake. The nausea and vomiting started about 2 weeks ago and has gradually become worse, leading to him being unable to tolerate any oral intake in the 48 hours prior to coming to the ED. No acid reflux. He does note that he has had some issues with swallowing that are new. Currently, he feels as though he has a pill stuck in his esophagus. Patient's was at bedside and helped with providing history. Patient has constipation at baseline. No worsening symptoms. Uses otc laxatives which help. Last bowel movement was the day prior to admission. He is passing gas. no melena or blood in the stools. 01/28/25 wbc 6.92, hgb 8.9, hct 27.2, plts 189, Na 136, K 4, BUN 14, Cr 1.22. Allergies Allergy/AdvReac Type Severity Reaction Status Date / Time No Known Allergies Allergy Verified 01/20/25 13:48 Home Medications Medication Instructions Recorded Confirmed Type cholecalciferol (vitamin D3) 125 125 mcg PO QAM 02/05/21 01/27/25 History mcg (5,000 unit) tablet (Vitamin D3) loratadine 10 mg tablet (Claritin) 10 mg PO QAM 02/05/21 01/27/25 History carbidopa ER 36.25 mg-levodopa 145 1 cap PO BID 04/17/23 01/27/25 History mg capsule,extended release carbidopa 25 mg-levodopa 100 mg 3 tab PO TID 10/26/24 01/27/25 History tablet (Sinemet) rosuvastatin 20 mg tablet 20 mg PO QAM #90 tabs 12/01/24 01/27/25 Rx losartan 25 mg tablet 25 mg PO QAM #90 tabs 01/13/25 01/27/25 Rx alprazolam 0.25 mg tablet (Xanax) 0.125 - 0.25 mg (0.5 - 1 x 0.25 01/20/25 01/27/25 Rx mg) PO HS PRN sleep #30 tabs omeprazole 20 mg capsule,delayed 20 mg PO BID #90 caps 01/20/25 01/27/25 Rx release oxybutynin chloride 5 mg tablet 5 mg PO DAILY 01/20/25 01/27/25 History sulfamethoxazole 800 1 tab PO Q12H #20 tabs 01/23/25 01/27/25 Rx mg-trimethoprim 160 mg tablet (Bactrim DS) bupropion HCl 300 mg 24 hr tablet, 300 mg PO QAM 01/27/25 01/27/25 History extended release Patient History Medical History Constipation Nausea and vomiting after administration of anesthetic agent History of COVID-19 early 2022- no hospitalized, resolved Surgical History Hx of tooth extraction Urinary anastomotic stricture Family History Mother Depression Diabetes Other Hypertension Denies family history of Ovarian cancer Prostate cancer Myocardial infarction Breast cancer Colorectal cancer Social History Smoking Status: Former smoker Tobacco Type: Cigarettes Age Started Using Tobacco: 19; Age Quit Using Tobacco: 46; packs per day: 1; Second Hand Exposure: No; Do You Dip or Chew Tobacco: No; Hx Alcohol Use: No Hx Substance Use: No Preferred Language: Armenian Communication Ability: Effective Visual Impairment: No Limitations Jig Fitter Required: No Beliefs That Will Affect Care: None marital status: Current Living Situation: Spouse Current Living Situation Comment: son current occupational status: retired How many Children do You have: 3 Feels Safe at Home: Yes Childhood Exposure to Second-Hand Smoke: No Diet: regular caffeine: Yes Dental Care, Regularly: No Physical Activity Frequency: Does not Exercise Seatbelt Use: always Sunscreen Use: Yes Assistive Devices: Glasses and Walker Review of Systems Review of Systems: All systems reviewed & are unremarkable except as noted in HPI & below Physical Exam Constitutional: WD/WN, vitals as above Respiratory: normal respiratory effort, lungs clear to auscultation Cardiovascular: Rate/Rhythm: regular rate and regular rhythm Gastrointestinal (Abdomen): normal bowel sounds, soft, nontender, no hepatosplenomegaly Psychiatric: Orientation: alert and oriented x 3 Results & Data Vital Signs (Past 12 Hours) Vital Signs Temp Pulse Resp BP BP Pulse Ox O2 Del Method 01/28/25 08:20 98.1 F 80 16 129/64 98 Room Air 01/27/25 22:17 97.5 F L 74 14 105/62 96 Room Air Coding Level of Care Code 13962 INT INP/OBS CARE 2/55MIN Diagnoses Nausea and vomiting R11.2 Dysphagia R13.10 Constipation K59.00
--- NOTE | 2025-01-28 10:20 | Anesthesiology Consultation ---
Date of Service January 28, 2025 Assessment & Plan Chart Review Chart Review: Acceptable Risk for Surgery and Patient NOT seen in Pre Admission Testing Consults Requested none History Surgery Operation Date: 01/28/25 16:30 Proposed Procedures p Esophagogastroduodenoscopy Dr. Judi Lau, Height/Weight Height: 5 ft 8 in Weight: 79.8 kg Allergies Allergy/AdvReac Type Severity Reaction Status Date / Time No Known Allergies Allergy Verified 01/20/25 13:48 Medications Home Medications Medication Instructions Recorded Confirmed Last Taken cholecalciferol (vitamin D3) 125 125 mcg PO QAM 02/05/21 01/27/25 01/27/25 mcg (5,000 unit) tablet (Vitamin D3) loratadine 10 mg tablet (Claritin) 10 mg PO QAM 02/05/21 01/27/25 01/27/25 carbidopa ER 36.25 mg-levodopa 145 1 cap PO BID 04/17/23 01/27/25 01/27/25 mg capsule,extended release carbidopa 25 mg-levodopa 100 mg 3 tab PO TID 10/26/24 01/27/25 01/27/25 tablet (Sinemet) rosuvastatin 20 mg tablet 20 mg PO QAM #90 tabs 12/01/24 01/27/25 01/27/25 losartan 25 mg tablet 25 mg PO QAM #90 tabs 01/13/25 01/27/25 01/27/25 alprazolam 0.25 mg tablet (Xanax) 0.125 - 0.25 mg (0.5 - 1 x 0.25 01/20/25 01/27/25 Unknown mg) PO HS PRN sleep #30 tabs omeprazole 20 mg capsule,delayed 20 mg PO BID #90 caps 01/20/25 01/27/25 01/27/25 release oxybutynin chloride 5 mg tablet 5 mg PO DAILY 01/20/25 01/27/25 Unknown sulfamethoxazole 800 1 tab PO Q12H #20 tabs 01/23/25 01/27/25 01/27/25 mg-trimethoprim 160 mg tablet (Bactrim DS) bupropion HCl 300 mg 24 hr tablet, 300 mg PO QAM 01/27/25 01/27/25 01/27/25 extended release Active Medications Generic Name Dose Route Start Last Admin Trade Name Freq PRN Reason Stop Dose Admin Alprazolam 0.125 - 0.25 mg 01/27/25 17:37 01/27/25 22:26 Alprazolam 0.25 Mg Tablet PO 02/26/25 17:36 0.125 mg HS PRN Administration sleep Bupropion HCl 300 mg 01/28/25 09:00 01/28/25 08:53 Bupropion Xl 300 Mg Tabcr PO 02/27/25 08:59 300 mg QAM DAVID Administration Carbidopa/Levodopa 3 tab 01/27/25 18:30 01/28/25 08:52 Carbidopa/Levodopa 25/100mg Tab PO 02/26/25 18:29 3 tab 0800,1130,1500,1830,2200 DAVID Administration Cyanocobalamin 1,000 mcg 01/28/25 09:00 01/28/25 08:54 Cyanocobalamin 1000 Mcg/Ml Vial IM 02/03/25 09:01 1,000 mcg QAM DAVID Administration Enoxaparin Sodium 40 mg 01/27/25 18:00 01/27/25 22:06 Enoxaparin Inj 40 Mg/0.4 Ml Syr SQ 02/26/25 17:59 40 mg Q24H DAVID Administration Folic Acid 1 mg 01/28/25 09:00 01/28/25 08:52 Folic Acid 1 Mg Tab PO 02/27/25 08:59 1 mg QAM DAVID Administration Gabapentin 100 mg 01/27/25 16:30 01/28/25 09:32 Gabapentin 100 Mg Cap PO 02/26/25 16:29 100 mg QAM DAVID Administration Pantoprazole Sodium 40 mg in 10 mls @ 5 mls/min 01/27/25 21:00 01/28/25 08:53 Protonix IV 02/26/25 20:59 5 mls/min BID DAVID Administration Famotidine 20 mg in 5 mls @ 2.5 mls/min 01/27/25 21:00 01/28/25 09:34 Pepcid 20mg Iv Push IV 02/26/25 20:59 2.5 mls/min Q12 DAVID Administration Dextrose/Lactated Ringer's 1,000 mls @ 80 mls/hr 01/28/25 08:15 01/28/25 08:15 D5w And Lactated Ringers IV 01/31/25 08:14 80 mls/hr .[id number] DAVID Administration Loratadine 10 mg 01/28/25 09:00 01/28/25 08:53 Loratadine 10 Mg Tab PO 02/27/25 08:59 10 mg QAM DAVID Administration Multivitamins/Minerals 1 tab 01/28/25 09:00 01/28/25 08:52 Cerovite Adv Formula Tab PO 02/27/25 08:59 1 tab QAM DAVID Administration Non-Formulary Medication 1 cap 01/27/25 21:00 01/28/25 08:54 Carbidopa-Levodopa PO 02/26/25 20:59 Not Given BID DAVID Oxybutynin Chloride 5 mg 01/28/25 09:00 01/28/25 08:53 Oxybutynin Chloride 5 Mg Tab PO 02/27/25 08:59 5 mg DAILY DAVID Administration Rosuvastatin Calcium 20 mg 01/28/25 09:00 01/28/25 08:53 Rosuvastatin Calcium 20 Mg Tab PO 02/27/25 08:59 20 mg QAM DAVID Administration Vitamin D 125 mcg 01/28/25 09:00 01/28/25 08:53 Cholecalciferol 125 Mcg (5,000 Units) Tab PO 02/27/25 08:59 125 mcg QAM DAVID Administration Past Medical History Medical History Constipation Nausea and vomiting after administration of anesthetic agent History of COVID-19 early 2022- no hospitalized, resolved Past Family History Family History Mother Depression Diabetes Other Hypertension Denies family history of Ovarian cancer Prostate cancer Myocardial infarction Breast cancer Colorectal cancer Past Surgical History Surgical History Hx of tooth extraction Urinary anastomotic stricture Social History Smoking Status: Former smoker Do You Dip or Chew Tobacco: No Hx Alcohol Use: No Hx Substance Use: No substance use type: does not use Physical Exam Vital Signs Last Vital Signs Temp 36.7 C 01/28/25 08:20 Pulse 80 01/28/25 08:20 Resp 16 01/28/25 08:20 BP 129/64 01/28/25 08:20 Pulse Ox 98 09/26/25 08:20 O2 Del Method Room Air 01/28/25 08:20 Testing Laboratory Results 01/28/25 06:49 01/28/25 06:49 PT 11.2 Seconds (9.0-12.0) 01/27/25 10:32 INR 1.0 (0.9-1.1) 01/27/25 10:32 Urine Color Yellow 01/27/25 Unknown Urine Appearance Clear (Clear) 01/27/25 Unknown Urine pH 6.5 (4.5-7.5) 01/27/25 Unknown Ur Specific [place] 1.018 (1.000-1.030) 01/27/25 Unknown Urine Protein 1+ (Negative) H 01/27/25 Unknown Urine Glucose (UA) Negative (Negative) 01/27/25 Unknown Urine Ketones 1+ (Negative) H 01/27/25 Unknown Urine Nitrite Negative (Negative) 01/27/25 Unknown Ur Leukocyte Esterase 2+ (Negative) H 01/27/25 Unknown Urine WBC (Auto) 11-20 /hpf (0-5) H 01/27/25 Unknown Urine RBC (Auto) 3-5 /hpf (0-2) H 01/27/25 Unknown U Hyaline Cast (Auto) 6-10 /lpf (0-2) H 01/27/25 Unknown U Epithel Cells (Auto) 3-5 /hpf (0-2) H 01/27/25 Unknown Urine Bacteria (Auto) None Seen (None Seen) 01/27/25 Unknown 01/28/25 01/28/25 08:30 08:08 POC Glucose 132 H 52 L*
--- NOTE | 2025-01-28 11:46 | GI REPORT ---
[facility] Patient: PAUL VALDEZ : 1950 Sex at : Male Age: 74 Years Procedure: Upper GI endoscopy Date: 01/28/2025 Attending Physician: Kelly Lau DO Referring MD: Referred Self; Dustin Caldwell MD Indications: - Anorexia - Nausea. see full consult. Medications: - Monitored Anesthesia Care - Propofol per Anesthesia - See the Anesthesia note for documentation of the administered medications Complications: - No immediate complications. Estimated Blood Loss: - Estimated blood loss: None. Procedure: - ASA Grade Assessment: III - A patient with severe systemic disease. - The egd scope was introduced through the mouth and advanced to the second part of the duodenum. - The upper GI endoscopy was accomplished without difficulty. - The patient tolerated the procedure well. Findings: - LA Grade A (one or more mucosal breaks less than 5 mm, not extending between tops of 2 mucosal folds) esophagitis with no bleeding was found 36 cm from the incisors. Biopsies were taken with a cold forceps for histology. - A small hiatal hernia was present. - Patchy mild inflammation characterized by erythema was found in the gastric antrum. Biopsies were taken with a cold forceps for Helicobacter pylori testing. - Multiple small sessile polyps were found in the gastric body. Biopsies were taken with a cold forceps for histology. - The examined duodenum was normal. Impression: - LA Grade A reflux esophagitis with no bleeding. Biopsied. - Small hiatal hernia. - Gastritis, characterized by erythema. Biopsied. - Multiple gastric polyps. Biopsied. - Normal examined duodenum. Recommendation: - [facility]. - Clear liquid diet today. - Continue present medications. STOP OMEPRAZOLE - Await pathology results. - Use Protonix (pantoprazole) 40 mg PO daily for 8 weeks. - Use Pepcid (famotidine) 40 mg PO daily for 8 weeks. - Perform a hepatobiliary scan at appointment to be scheduled. May also consider GES. - The findings and recommendations were discussed with the patient's family. Procedure Code(s): - 97920, Esophagogastroduodenoscopy, flexible, transoral; with biopsy, single or multiple Diagnosis Code(s): - R63.0, Anorexia - R11.0, Nausea - K21.00, Gastro-esophageal reflux disease with esophagitis, without bleeding - K44.9, Diaphragmatic hernia without obstruction or gangrene - K29.70, Gastritis, unspecified, without bleeding - K31.7, Polyp of stomach and duodenum CPT(R) - 2023 copyright [employer]. All Rights Reserved. The CPT codes, CCI edits and ICD codes generated are intended as suggestions and were generated based on input data. These codes are preliminary and upon cartographic aide review may be revised to meet current compliance and payer requirements. The provider is responsible for the final determination of appropriate codes, and modifiers. Kelly Lau, This document has been electronically signed. Note Initiated:01/28/2025 Note Completed:01/28/2025 11:45 AM \\[email or web address]\[email or web address]\[id number]
--- NOTE | 2025-01-28 12:27 | Anesthesiology Progress Note ---
Date of Service January 28, 2025 Anesthesia Post Procedure Vital Signs Vital Signs: Temp Pulse Pulse Resp BP BP Pulse Ox 01/28/25 11:55 70 20 132/74 100 01/28/25 11:40 67 18 132/59 L 100 01/28/25 11:35 67 16 120/65 100 01/28/25 10:34 37 C 16 142/60 H 98 01/28/25 08:20 36.7 C 80 16 129/64 98 01/27/25 22:17 36.4 C L 74 14 105/62 96 01/27/25 21:20 01/27/25 18:41 01/27/25 17:31 36.5 C 75 16 121/63 99 01/27/25 16:56 80 18 108/79 96 01/27/25 13:59 36.6 C 75 19 131/62 99 O2 Del Method 01/28/25 11:55 Room Air 01/28/25 11:40 Room Air 01/28/25 11:35 Room Air 01/28/25 10:34 Room Air 01/28/25 08:20 Room Air 01/27/25 22:17 Room Air 01/27/25 21:20 Room Air 01/27/25 18:41 Room Air 01/27/25 17:31 Room Air 01/27/25 16:56 Room Air 01/27/25 13:59 Room Air Transfer of Care Handoff Completed per policy Notes Mental Status: alert / awake / arousable Patient Amnestic to Procedure: Yes Nausea / Vomiting: adequately controlled Pain: adequately controlled Airway Patency, RR, SpO2: stable & adequate BP & HR: stable & adequate Hydration State: stable & adequate Anesthetic Complications: no major complications apparent and Pt Satisfied with anesthetic care
[2025-01-28] MEDS: PROPOFOL IV EMULSION 10 MG/ML 20 ML VIAL IV ONE (14:17)
[2025-01-28] MEDS: LIDOCAINE 2% 2 ML VIAL/AMP(20MG/ML) INFIL ONE (14:17)
[2025-01-28] MEDS ORDERED: ACETAMINOPHEN 325 MG TAB PO PRN (14:39)
[2025-01-28] MEDS ORDERED: INFLUENZA VACC TS2025-26(65y+)/PF (IIV3) 0.5mL Syr IM ONE (18:25)
[2025-01-28] MEDS: CARBIDOPA/LEVODOPA 50/200MG EXT REL TAB PO SCH (21:51)
[2025-01-29 07:06] LABS: Hematocrit (blood only) 25.2 % (42.0-52.0); Hemoglobin 8.3 g/dl (14.0-18.0); Immature Granulocytes # (auto) 0.01 K/uL (0.01-0.20); Immature Granulocytes % (auto) 0.2 %; Mean Corpuscular Hemoglobin 25.4 pg (25.0-34.0); Mean Corpuscular Volume 77.1 fL (80.0-100.0); Platelet Count 197 K/uL (130-400); RDW Standard Deviation 52.5 fL (36.4-46.3); Red Blood Count 3.27 M/uL (4.70-6.10); White Blood Count 4.09 K/ul (4.8-10.8)
[2025-01-29 07:21] LABS: Anion Gap 6.0 (3-11); Blood Urea Nitrogen 8.0 mg/dl (6-23); Calcium 8.8 mg/dl (8.6-10.3); Carbon Dioxide 26.0 mmol/L (21-32); Chloride 109.0 mmol/L (98-107); Creatinine Clr Calc Pharmacy 53.0 ml/min; Glucose 109.0 mg/dl (70-99(Fasting)); Potassium 3.1 mmol/L (3.5-5.1); Sodium 141.0 mmol/L (136-145)
[2025-01-29] MEDS: LOSARTAN POTASSIUM 25 MG TAB PO SCH (08:18)
[2025-01-29] MEDS: POTASSIUM CHLORIDE CRTAB 20 MEQ TABCR PO STA (08:19)
[2025-01-29] MEDS: POLYETHYLENE (MIRALAX) 17 GM PACK PO SCH (10:01)
[2025-01-29] MEDS: MAGNESIUM OXIDE 400 MG TAB PO SCH (10:06)
--- NOTE | 2025-01-29 10:55 | Hospitalist Progress Note ---
Date of Service January 29, 2025 Assessment & Plan (1) Nausea and vomiting: Plan: Nausea/anorexia with generalized weakness Anorexia/no p.o. intake past 48 hours EGD: Mild gastritis. Multiple gastric polyps Continue PPI/H2 Dissipate HIDA scan on 01/31 B12 was markedly elevated, this is being repleted as noted Patient was feeling poorly in the morning, KUB with nonobstructive bowel gas. No appetite with some nausea. Was anticipating progressing to HIDA at that time however on mid morning reevaluation has a bowel movement and actually feels much better and is hungry. Clinically doing well. Will plan to hold off on HIDA and diet advanced. Will continue monitoring Hypokalemia Potassium repleted Magnesium added Continue repletion to goal potassium 4.0, magnesium 2.0 Microcytic Anemia - no active bleeding. BUN wnl. hgb 9.4 microcytic mcv 78 - iron levels are not consistent with iron deficiency, ferritin is actually slightly elevated and transferrin saturation 41%.? Underlying information causing ferritin to be elevated as a phase reactant however transferrin saturation also does not suggest iron deficiency. -He is B12 and folate deficient, supplementation for these have been ordered. High-dose folate has been ordered for B12 due to concurrent polyneuropathy. No known history of thalassemia, no drug use. No known lead exposure. 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 Has had return of poor appetite, some nausea, and poor p.o. intake. No fevers chills or sweats. Has had some waxing and waning confusion suspicious for delirium Anticipated pursuing HIDA however on afternoon reassessment he was more awake alert and moving around. He reports he has had a fairly robust bowel movement. He is hungry and appetite has returned. Doing much better, KUB shows nonobstructive bowel gas pattern. Diet advanced and will place on regular diet if continuing to do well. Physical Exam Physical Exam: General: Somnolent, awakens easily and alert and oriented to name and place HEENT: Atraumatic, normocephalic. Vision/hearing intact. Pulm: CTAB A&P. -wheezes, -rales, -rhonchi. Symmetrical chest rise. No increased work of breathing. No respiratory distress. Cardiac: RRR, -mrg. Radial pulses intact and symmetrical. Abdominal: Nontender, nondistended, soft. BS present. Results & Data Results & Data Vital Signs (Past 12 Hours) Vital Signs Temp Pulse Resp BP Pulse Ox O2 Del Method 01/29/25 08:03 36.6 C 66 17 139/69 98 Room Air 01/28/25 23:34 36.4 C 59 L 16 117/68 94 Room Air PG Care Time/CCT Total # of Minutes Spent Total Time Spent with Patient: Total time spent is greater than 50% in coordination of care (as documented) at patient's floor/unit and/or counseling patient: Coding Level of Care Code 79412 SUB INP/OBS CARE 3/50MIN Diagnoses Nausea and vomiting R11.2 Generalized weakness R53.1 BPH with obstruction/lower urinary tract symptoms N40.1; N13.8 HTN (hypertension) I10 GERD (gastroesophageal reflux disease) K21.9 Major depressive disorder with single episode F32.9 Parkinsonism G20
--- NOTE | 2025-01-29 12:12 | XRay Report ---
EXAM: Radiograph of the Abdomen 1 View INDICATION: Ileus TECHNIQUE: Frontal supine view of the abdomen/pelvis. COMPARISON: 01/27/2025 FINDINGS: Limitations: None. Gastrointestinal tract: There is decreased mild gaseous distention of the redundant sigmoid. Scattered air throughout nondilated small and large bowel loops. Small amounts of formed stool in the colon. Organs: Visualized organ shadows appear grossly normal. Bones/joints: No fracture, erosion or dislocation. Soft tissues: No abnormality noted. No radiopaque foreign body noted. Tubes, lines and devices: Tube projects over the pelvis. IMPRESSION: 1. Decreased prominent aeration of the colon. Impression nonspecific, nonobstructive intestinal gas pattern. 2. Tubes as above. ACT 112: N/A Electronically signed by Mirela Bone 01-29-2025 12:12 PM
--- NOTE | 2025-01-29 13:09 | Gastroenterology Progress Note ---
Date of Service January 29, 2025 Assessment & Plan (1) Dysphagia: (2) Nausea and vomiting: (3) Generalized weakness: (4) Constipation: Plan: Overall patient is doing much better. I am going to stop his omeprazole which he has been on now for over a year and maintain him on Protonix 40 mg in the morning and Pepcid 40 mg before bed. Will wait for the pathology to come back from his endoscopy. He is doing much better so I think we can hold off on the HIDA scan. I will advance his diet today. Admission and Anticipated Discharge Date Admission Date: January 27, 2025 Subjective Patient seen with his at bedside. He is feeling much better. He is tolerating his clear liquid diet without difficulty. He states he is very hungry and would like to try solid foods. He had a normal bowel movement yesterday. Results & Data Results & Data Vital Signs (Past 12 Hours) Vital Signs Temp Pulse Resp BP Pulse Ox O2 Del Method 01/29/25 08:03 36.6 C 66 17 139/69 98 Room Air Laboratory Results 01/27/25 Unknown Urine Culture - Final Urine,Clean Catch Staphylococcus epidermidis 01/29/25 01/29/25 01/29/25 06:40 06:03 00:06 WBC 4.09 L RBC 3.27 L Hgb 8.3 L Hct 25.2 L MCV 77.1 L MCH 25.4 MCHC 32.9 RDW Std Deviation 52.5 H RDW Coeff of [place] 19.0 H Plt Count 197 Immature Gran % (Auto) 0.2 Neut % (Auto) 59.2 Lymph % (Auto) 26.9 [place] % (Auto) 11.2 Eos % (Auto) 2.0 Baso % (Auto) 0.5 Neut # (Auto) 2.42 Lymph # (Auto) 1.10 L [place] # (Auto) 0.46 Eos # (Auto) 0.08 Baso # (Auto) 0.02 Immature Gran # (Auto) 0.01 Sodium 141 Potassium 3.1 L D Chloride 109 H Carbon Dioxide 26 Anion Gap 6 BUN 8 Creatinine 1.20 Est Cr Clr Drug Dosing 53.0 eGFR 63.85 BUN/Creatinine Ratio 6.7 L Glucose 109 H POC Glucose 106 H 109 H Calcium 8.8 01/28/25 18:32 WBC RBC Hgb Hct MCV MCH MCHC RDW Std Deviation RDW Coeff of [place] Plt Count Immature Gran % (Auto) Neut % (Auto) Lymph % (Auto) [place] % (Auto) Eos % (Auto) Baso % (Auto) Neut # (Auto) Lymph # (Auto) [place] # (Auto) Eos # (Auto) Baso # (Auto) Immature Gran # (Auto) Sodium Potassium Chloride Carbon Dioxide Anion Gap BUN Creatinine Est Cr Clr Drug Dosing eGFR BUN/Creatinine Ratio Glucose POC Glucose 153 H Calcium Diagnostic Findings KUB X-Ray 01/29/25 10:55 EXAM: Radiograph of the Abdomen 1 View INDICATION: Ileus TECHNIQUE: Frontal supine view of the abdomen/pelvis. COMPARISON: 01/27/2025 FINDINGS: Limitations: None. Gastrointestinal tract: There is decreased mild gaseous distention of the redundant sigmoid. Scattered air throughout nondilated small and large bowel loops. Small amounts of formed stool in the colon. Organs: Visualized organ shadows appear grossly normal. Bones/joints: No fracture, erosion or dislocation. Soft tissues: No abnormality noted. No radiopaque foreign body noted. Tubes, lines and devices: Tube projects over the pelvis. IMPRESSION: 1. Decreased prominent aeration of the colon. Impression nonspecific, nonobstructive intestinal gas pattern. 2. Tubes as above. ACT 112: N/A Electronically signed by Mirela Bone 01-29-2025 12:12 PM Medications Administered Home Medications Medication Instructions Recorded Confirmed Last Taken cholecalciferol (vitamin D3) 125 125 mcg PO QAM 02/05/21 01/27/25 01/27/25 mcg (5,000 unit) tablet (Vitamin D3) loratadine 10 mg tablet (Claritin) 10 mg PO QAM 02/05/21 01/27/25 01/27/25 carbidopa 25 mg-levodopa 100 mg 3 tab PO TID 10/26/24 01/27/25 01/27/25 tablet (Sinemet) rosuvastatin 20 mg tablet 20 mg PO QAM #90 tabs 12/01/24 01/27/25 01/27/25 losartan 25 mg tablet 25 mg PO QAM #90 tabs 01/13/25 01/27/25 01/27/25 alprazolam 0.25 mg tablet (Xanax) 0.125 - 0.25 mg (0.5 - 1 x 0.25 01/20/25 01/27/25 Unknown mg) PO HS PRN sleep #30 tabs oxybutynin chloride 5 mg tablet 5 mg PO DAILY 01/20/25 01/27/25 Unknown sulfamethoxazole 800 1 tab PO Q12H #20 tabs 01/23/25 01/27/25 01/27/25 mg-trimethoprim 160 mg tablet (Bactrim DS) bupropion HCl 300 mg 24 hr tablet, 300 mg PO QAM 01/27/25 01/27/25 01/27/25 extended release carbidopa ER 50 mg-levodopa 200 mg 1 tab PO BID 01/28/25 01/28/25 Unknown tablet,extended release famotidine 40 mg tablet 40 mg PO DAILY #30 tabs 01/28/25 Unknown pantoprazole 40 mg tablet,delayed 40 mg PO DAILY #30 tabs 01/28/25 Unknown release Active Medications Generic Name Dose Route Start Last Admin Trade Name Freq PRN Reason Stop Dose Admin Alprazolam 0.125 - 0.25 mg 01/27/25 17:37 01/27/25 22:26 Alprazolam 0.25 Mg Tablet PO 02/26/25 17:36 0.125 mg HS PRN Administration sleep Bupropion HCl 300 mg 01/28/25 09:00 01/29/25 08:16 Bupropion Xl 300 Mg Tabcr PO 02/27/25 08:59 300 mg QAM DAVID Administration Carbidopa/Levodopa 3 tab 01/27/25 18:30 01/29/25 11:49 Carbidopa/Levodopa 25/100mg Tab PO 02/26/25 18:29 3 tab 0800,1130,1500,1830,2200 DAVID Administration Carbidopa/Levodopa 1 tab 01/28/25 22:00 01/29/25 08:17 Carbidopa/Levodopa 50/200mg Ext Rel Tab PO 02/27/25 21:59 1 tab 0800,2200 DAVID Administration Cyanocobalamin 1,000 mcg 01/28/25 09:00 01/29/25 10:08 Cyanocobalamin 1000 Mcg/Ml Vial IM 02/03/25 09:01 1,000 mcg QAM DAVID Administration Enoxaparin Sodium 40 mg 01/27/25 18:00 01/28/25 18:03 Enoxaparin Inj 40 Mg/0.4 Ml Syr SQ 02/26/25 17:59 40 mg Q24H DAVID Administration Folic Acid 1 mg 01/28/25 09:00 01/29/25 08:18 Folic Acid 1 Mg Tab PO 02/27/25 08:59 1 mg QAM DAVID Administration Gabapentin 100 mg 01/27/25 16:30 01/29/25 08:17 Gabapentin 100 Mg Cap PO 02/26/25 16:29 100 mg QAM DAVID Administration Famotidine 20 mg in 5 mls @ 2.5 mls/min 01/27/25 21:00 01/29/25 10:01 Pepcid 20mg Iv Push IV 02/26/25 20:59 2.5 mls/min Q12 DAVID Administration Dextrose/Lactated Ringer's 1,000 mls @ 120 mls/hr 01/28/25 08:15 01/29/25 10:55 D5w And Lactated Ringers IV 01/31/25 08:14 120 mls/hr .[id number] DAVID Administration Loratadine 10 mg 01/28/25 09:00 01/29/25 08:15 Loratadine 10 Mg Tab PO 02/27/25 08:59 10 mg QAM DAVID Administration Losartan Potassium 25 mg 01/29/25 09:00 01/29/25 08:18 Losartan Potassium 25 Mg Tab PO 02/28/25 08:59 25 mg QAM DAVID Administration Magnesium Oxide 400 mg 01/29/25 09:00 01/29/25 10:06 Magnesium Oxide 400 Mg Tab PO 02/28/25 08:59 400 mg QAM DAVID Administration Multivitamins/Minerals 1 tab 01/28/25 09:00 01/29/25 08:18 Cerovite Adv Formula Tab PO 02/27/25 08:59 1 tab QAM DAVID Administration Oxybutynin Chloride 5 mg 01/28/25 09:00 01/29/25 08:18 Oxybutynin Chloride 5 Mg Tab PO 02/27/25 08:59 5 mg DAILY DAVID Administration Pantoprazole Sodium 40 mg 01/29/25 09:00 01/29/25 08:17 Pantoprazole 40 Mg Tab PO 02/28/25 08:59 40 mg QAM DAVID Administration Polyethylene Glycol 17 gm 01/29/25 09:00 01/29/25 10:01 Polyethylene (Miralax) 17 Gm Pack PO 02/28/25 08:59 17 gm DAILY DAVID Administration Rosuvastatin Calcium 20 mg 01/28/25 09:00 01/29/25 08:15 Rosuvastatin Calcium 20 Mg Tab PO 02/27/25 08:59 20 mg QAM DAVID Administration Vitamin D 125 mcg 01/28/25 09:00 01/29/25 08:17 Cholecalciferol 125 Mcg (5,000 Units) Tab PO 02/27/25 08:59 125 mcg QAM DAVID Administration PG Care Time/CCT Total # of Minutes Spent Total Time Spent with Patient: Total time spent is greater than 50% in coordination of care (as documented) at patient's floor/unit and/or counseling patient: Coding [place] [address] SUB INP/OBS CARE 05/29MIN Patient Type Established History Problem Focused Exam Problem Focused Medical Decision Making Low Complexity Diagnoses Dysphagia R13.10 Nausea and vomiting R11.2 Generalized weakness R53.1 Constipation K59.00
[2025-01-30 06:29] LABS: Hematocrit (blood only) 25.0 % (42.0-52.0); Hemoglobin 8.1 g/dl (14.0-18.0); Immature Granulocytes # (auto) 0.02 K/uL (0.01-0.20); Immature Granulocytes % (auto) 0.4 %; Mean Corpuscular Hemoglobin 25.5 pg (25.0-34.0); Mean Corpuscular Volume 78.6 fL (80.0-100.0); Platelet Count 206 K/uL (130-400); RDW Standard Deviation 53.1 fL (36.4-46.3); Red Blood Count 3.18 M/uL (4.70-6.10); White Blood Count 5.12 K/ul (4.8-10.8)
[2025-01-30 06:49] LABS: Anion Gap 6.0 (3-11); Blood Urea Nitrogen 4.0 mg/dl (6-23); Calcium 8.6 mg/dl (8.6-10.3); Carbon Dioxide 25.0 mmol/L (21-32); Chloride 110.0 mmol/L (98-107); Creatinine Clr Calc Pharmacy 54.4 ml/min; Glucose 99.0 mg/dl (70-99(Fasting)); Magnesium 1.8 mg/dl (1.7-2.4); Potassium 3.1 mmol/L (3.5-5.1); Sodium 141.0 mmol/L (136-145)
[2025-01-30 08:05] VITALS: BP 132/68; PULSE 70; RESP 16; TEMP 97.3; O2SAT 97
[2025-01-30] MEDS: POTASSIUM CHLORIDE 20 MEQ/15 ML UDC PO STA (09:23)
--- NOTE | 2025-01-30 11:35 | Gastroenterology Progress Note ---
Date of Service January 30, 2025 Assessment & Plan (1) Dysphagia: (2) Nausea and vomiting: (3) Generalized weakness: (4) Constipation: Plan: Patient overall doing better from a GI standpoint. I would continue him on his Protonix 40 mg daily. I think we can discharge him home on Pepcid 40 mg before bed. He should continue his MiraLAX daily. Admission and Anticipated Discharge Date Admission Date: January 27, 2025 Subjective Patient seen with his at bedside. Apparently he had a rough night with what sounds like confusion and delirium. He appears tired today but states he has not had any issues tolerating his diet. Physical Exam Constitutional: WD/WN, vitals as above Gastrointestinal (Abdomen): normal bowel sounds, soft, nontender, no hepatosplenomegaly Results & Data Results & Data Vital Signs (Past 12 Hours) Vital Signs Temp Pulse Resp BP BP Pulse Ox O2 Del Method 01/30/25 07:42 36.3 C L 70 16 132/68 97 Room Air 01/29/25 23:56 36.7 C 76 18 149/72 H 99 Room Air Laboratory Results 01/27/25 Unknown Urine Culture - Final Urine,Clean Catch Staphylococcus epidermidis 01/30/25 01/29/25 06:04 14:05 WBC 5.12 RBC 3.18 L Hgb 8.1 L Hct 25.0 L MCV 78.6 L MCH 25.5 MCHC 32.4 RDW Std Deviation 53.1 H RDW Coeff of [place] 19.4 H Plt Count 206 Immature Gran % (Auto) 0.4 Neut % (Auto) 54.3 Lymph % (Auto) 29.5 [place] % (Auto) 11.5 Eos % (Auto) 3.7 Baso % (Auto) 0.6 Neut # (Auto) 2.78 Lymph # (Auto) 1.51 [place] # (Auto) 0.59 Eos # (Auto) 0.19 Baso # (Auto) 0.03 Immature Gran # (Auto) 0.02 Sodium 141 Potassium 3.1 L Chloride 110 H Carbon Dioxide 25 Anion Gap 6 BUN 4 L Creatinine 1.17 Est Cr Clr Drug Dosing 54.4 eGFR 65.82 BUN/Creatinine Ratio 3.4 L Glucose 99 POC Glucose 146 H Calcium 8.6 Magnesium 1.8 Medications Administered Home Medications Medication Instructions Recorded Confirmed Last Taken cholecalciferol (vitamin D3) 125 125 mcg PO QAM 02/05/21 01/27/25 01/27/25 mcg (5,000 unit) tablet (Vitamin D3) loratadine 10 mg tablet (Claritin) 10 mg PO QAM 02/05/21 01/27/25 01/27/25 carbidopa 25 mg-levodopa 100 mg 3 tab PO TID 10/26/24 01/27/25 01/27/25 tablet (Sinemet) rosuvastatin 20 mg tablet 20 mg PO QAM #90 tabs 12/01/24 01/27/25 01/27/25 losartan 25 mg tablet 25 mg PO QAM #90 tabs 01/13/25 01/27/25 01/27/25 alprazolam 0.25 mg tablet (Xanax) 0.125 - 0.25 mg (0.5 - 1 x 0.25 01/20/25 01/27/25 Unknown mg) PO HS PRN sleep #30 tabs oxybutynin chloride 5 mg tablet 5 mg PO DAILY 01/20/25 01/27/25 Unknown sulfamethoxazole 800 1 tab PO Q12H #20 tabs 01/23/25 01/27/25 01/27/25 mg-trimethoprim 160 mg tablet (Bactrim DS) bupropion HCl 300 mg 24 hr tablet, 300 mg PO QAM 01/27/25 01/27/25 01/27/25 extended release carbidopa ER 50 mg-levodopa 200 mg 1 tab PO BID 01/28/25 01/28/25 Unknown tablet,extended release famotidine 40 mg tablet 40 mg PO DAILY #30 tabs 01/28/25 Unknown pantoprazole 40 mg tablet,delayed 40 mg PO DAILY #30 tabs 01/28/25 Unknown release Active Medications Generic Name Dose Route Start Last Admin Trade Name Freq PRN Reason Stop Dose Admin Alprazolam 0.125 - 0.25 mg 01/27/25 17:37 01/29/25 20:57 Alprazolam 0.25 Mg Tablet PO 02/26/25 17:36 0.125 mg HS PRN Administration sleep Bupropion HCl 300 mg 01/28/25 09:00 01/30/25 08:08 Bupropion Xl 300 Mg Tabcr PO 02/27/25 08:59 300 mg QAM DAVID Administration Carbidopa/Levodopa 3 tab 01/27/25 18:30 01/30/25 11:26 Carbidopa/Levodopa 25/100mg Tab PO 02/26/25 18:29 3 tab 0800,1130,1500,1830,2200 DAVID Administration Carbidopa/Levodopa 1 tab 01/28/25 22:00 01/30/25 08:00 Carbidopa/Levodopa 50/200mg Ext Rel Tab PO 02/27/25 21:59 1 tab 0800,2200 DAVID Administration Cyanocobalamin 1,000 mcg 01/28/25 09:00 01/30/25 09:29 Cyanocobalamin 1000 Mcg/Ml Vial IM 02/03/25 09:01 1,000 mcg QAM DAVID Administration Enoxaparin Sodium 40 mg 01/27/25 18:00 01/29/25 18:39 Enoxaparin Inj 40 Mg/0.4 Ml Syr SQ 02/26/25 17:59 40 mg Q24H DAVID Administration Folic Acid 1 mg 01/28/25 09:00 01/30/25 08:09 Folic Acid 1 Mg Tab PO 02/27/25 08:59 1 mg QAM DAVID Administration Gabapentin 100 mg 01/27/25 16:30 01/30/25 08:08 Gabapentin 100 Mg Cap PO 02/26/25 16:29 100 mg QAM DAVID Administration Famotidine 20 mg in 5 mls @ 2.5 mls/min 01/27/25 21:00 01/30/25 09:33 Pepcid 20mg Iv Push IV 02/26/25 20:59 2.5 mls/min Q12 DAVID Administration Dextrose/Lactated Ringer's 1,000 mls @ 120 mls/hr 01/28/25 08:15 01/30/25 05:08 D5w And Lactated Ringers IV 01/31/25 08:14 120 mls/hr .Q8H20M DAVID Administration Loratadine 10 mg 01/28/25 09:00 01/30/25 08:08 Loratadine 10 Mg Tab PO 02/27/25 08:59 10 mg QAM DAVID Administration Losartan Potassium 25 mg 01/29/25 09:00 01/30/25 08:10 Losartan Potassium 25 Mg Tab PO 02/28/25 08:59 25 mg QAM DAVID Administration Magnesium Oxide 400 mg 01/29/25 09:00 01/30/25 08:08 Magnesium Oxide 400 Mg Tab PO 02/28/25 08:59 400 mg QAM DAVID Administration Multivitamins/Minerals 1 tab 01/28/25 09:00 01/30/25 08:09 Cerovite Adv Formula Tab PO 02/27/25 08:59 1 tab QAM DAVID Administration Oxybutynin Chloride 5 mg 01/28/25 09:00 01/30/25 08:06 Oxybutynin Chloride 5 Mg Tab PO 02/27/25 08:59 5 mg DAILY DAVID Administration Pantoprazole Sodium 40 mg 01/29/25 09:00 01/30/25 08:08 Pantoprazole 40 Mg Tab PO 02/28/25 08:59 40 mg QAM DAVID Administration Polyethylene Glycol 17 gm 01/29/25 09:00 01/30/25 09:32 Polyethylene (Miralax) 17 Gm Pack PO 02/28/25 08:59 Not Given DAILY DAVID Rosuvastatin Calcium 20 mg 01/28/25 09:00 01/30/25 08:08 Rosuvastatin Calcium 20 Mg Tab PO 02/27/25 08:59 20 mg QAM DAVID Administration Vitamin D 125 mcg 01/28/25 09:00 01/30/25 08:09 Cholecalciferol 125 Mcg (5,000 Units) Tab PO 02/27/25 08:59 125 mcg QAM DAVID Administration PG Care Time/CCT Total # of Minutes Spent Total Time Spent with Patient: Total time spent is greater than 50% in coordination of care (as documented) at patient's floor/unit and/or counseling patient: Coding Level of Care Code 24076 SUB INP/OBS CARE 05/29MIN Diagnoses Dysphagia R13.10 Nausea and vomiting R11.2 Generalized weakness R53.1 Constipation K59.00
--- NOTE | 2025-01-30 13:59 | Discharge Summary ---
Discharge Summary Date of Service January 30, 2025 Principal Dx & Hospital Course #1 = Principal Diagnosis (1) Nausea and vomitin-year-old male who presented for nausea/vomiting and poor p.o. intake for the last 48 hours prior to admission, but with intermittent similar symptoms in the last month. Suspected to have mild ileus. Improved with conservative care, hydration, and bowel regimen. He did have an EGD which showed some gastritis. Was placed on Pepcid at night in addition to his [employer] Protonix. Did clinically well. Follow-up HIDA was discussed if he had persistent symptoms however this was not required during admission. He did show evidence of polyneuropathy and anemia suspected due to B12 deficiency which was confirmed on serologic testing. He was put on high-dose repletion which he received daily during admission, which was continued weekly for around 1 month and to be transition to p.o. on follow-up as outpatient. To do as outpatient: 1. Continue Pepcid before bed 2. Continue Protonix 40 mg once in the morning 3. Continue B12 IM injections weekly, transition to p.o. versus sublingual after around 1 month 4. Continue folate supplementation 5. Repeat CBC and follow-up with PCP, routine Nausea/anorexia with generalized weakness Anorexia/no p.o. 48 hours prior to admission. Reports he has had intermittent episodes of this over the preceding weeks EGD: Mild gastritis. Multiple gastric polyps Continue PPI/H2 Dissipate HIDA scan on 01/31 B12 was markedly elevated, this is being repleted as noted Patient showed signs of ileus and concern for developing SBO during admission, this resolved. After a initial waxing waning course he did well was able to advance his diet with good tolerance and was appropriate for discharge home. He was recommended to continue Protonix 40 mg daily, and Pepcid before bed. Continue MiraLAX daily. Microcytic Anemia - no active bleeding. BUN wnl. stable. - iron levels are not consistent with iron deficiency, ferritin is actually slightly elevated and transferrin saturation 41%.? Underlying information causing ferritin to be elevated as a phase reactant however transferrin saturation also does not suggest iron deficiency. -He is B12 and folate deficient, supplementation for these have been ordered. High-dose folate has been ordered for B12 due to concurrent polyneuropathy. No known history of thalassemia, no drug use. No known lead exposure. Continue multivitamin with minerals B12/folate deficiency B12 low at 121, folate low at 5.36 B12 likely contributing to polyneuropathy, may also contribute to nausea IM B12 ordered, 1000 mcg daily x 1 week then switch to IM weekly. 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 intake which is because generalized weakness which has progressed to the point where he can no longer function independently at home. He has no leukocytosis CMP is without acute abnormalities UA is not infected appearing Anaplasma/Lyme/Babesia testing is negative Per ER signout abdomen is tender, repeat imaging deferred. Has had similar symptoms which were evaluated in the ER on 01/13 and 01/24. CTA/P at that time with contrast showed no acute findings or changes, and repeat imaging was deferred due to benign abdomen. 2 weeks of nausea and weakness. Nonbloody nonbilious emesis. Dark/cola colored urine questionable ATN although renal function appears near baseline Per Pt with At Bedside: Has intermittent nausea relieved by vomiting. Really progressed in the last 2 weeks. Nausea seems to happen in the evening around 4:30-5pm. Lasts throughout the evening and generally feels a little better after throwing up in the evening. No blood. Nothing black/melanic. Color is usually clear. He has not been able to eat breakfast or lunch most of the time. Sporadically has some crackers and a few sips of protein drinks, but has not even gotten through 1 bottle of protein shake. urine this mornign was color of cola. No diarrhea. Last bowel movement was yesterday evening, brownish. No melena/blood in the toilet. No white or nara colored stool to his knowlege, but he does not really look. NO history of problems like this before No fevers or chills. No new sweats or night sweats, but gets some sweats at baseline. no chest pain, no shortness of breath Switched from Gemtesa to oxybutinin PRN. No recent medication changes in the last 2 months. Parkinsons is 'ok, its Parkisons' per pt, but notes hands and feel have felt more numb and tingly lately. Also falling more often, feeling globally weak and tired but denies focal weakness. No vision change. Bactrim --> Started Friday for a UTI. Nausea preceded this. Medical History: Reviewed Medications: Reviewed Surgical History: Reviewed Family history: Reviewed Allergies: Reviewed. NKDA Social History: No alcohol use, no tobacco use, no drug use. Code Status: DNR/DNI Discharge Exam General: Appears tired, but awakens easily and answers questions appropriately. Cooperative, pleasant. Expresses appreciation of care HEENT: Atraumatic, normocephalic. Vision/hearing intact. Pulm: CTAB A&P. -wheezes, -rales, -rhonchi. Symmetrical chest rise. No increased work of breathing. No respiratory distress. Cardiac: RRR, -mrg. Radial pulses intact and symmetrical. Abdominal: Nontender, nondistended, soft. BS present. Extremities: Warm and dry. Moves all extremities equally. Neuropathy improved today. Discharge Plan Discharge Items Patient Disposition: Home - Self-Care Reason For Visit: NAUSEA/VOMITING/ANOREXI Discharge Diagnosis: Ileus B12 deficiency Condition on Discharge: Good Activity: Resume your previous activity Non-emergency contact: Primary Care Provider Call non-emergency contact if: you have any medication questions, your symptoms worsen and your pain is not controlled Follow-up/Referrals: Teresa Das MD [Primary Care Provider] - Addtl Attending Provider Instructions: You are seen in the hospital for nausea and poor p.o. intake. Imaging was suggestive of ileus/bowel slowdown which improved with supportive care. You had a endoscopy procedure which showed some stomach inflammation but was otherwise unremarkable. You were seen by gastroenterology. It was recommended that you continue to take MiraLAX once daily which is available [id number], Protonix 40 mg daily which has been prescribed, and Pepcid in the evening before bed which has been prescribed as below. Follow-up evaluation of your gallbladder was discussed however you clinically improved and this was not indicated at time of discharge. You were eating well at time of discharge. Staying hydrated and having regular bowel movements collated with MiraLAX are likely to help prevent recurrence of your symptoms in the future. You had some peripheral neuropathy in your hands during admission. On evaluation you were found to be severely B12 deficient. You were treated with IM B12 injections during admission. You are also started on a low-dose of gabapentin which helped with the neuropathy. Please continue to take vitamin B12 1000 mcg by injection once a week for 1 month, and then can discuss transition to oral supplementation with your primary care provider. IM injection kits have been sent to the pharmacy; however if these are significantly expensive it is worth discussing with your primary care's office if this could be provided via injection in the office as a nurse visit instead. Once your neuropathy improved it is recommended that you discontinue gabapentin as this can contribute to confusion and sedation. If you develop any new or worsening symptoms including fever, chills, sweats, chest pain, chest pressure, difficulty breathing, uncontrolled nausea/vomiting, rash, wheezing, passing out or nearly passing out, bleeding, black/bloody bowel movements, or other new or concerning symptoms please call your primary care physician, or call 911 for re-evaluation in the emergency department if you are very concerned. Pending Studies at Discharge: No Stand-Alone Forms: My [facility], Smoking Cessation Medications and DC Order Prescriptions: New magnesium oxide 400 mg (241.3 mg magnesium) Tablet 400 mg PO QAM Qty: 30 0RF folic acid 1 mg Tablet 1 mg PO QAM Qty: 30 0RF gabapentin 100 mg Capsule 100 mg PO QAM Qty: 30 0RF cyanocobalamin (vitamin B-12) 1,000 mcg/mL kit 1,000 mcg subcut Q7D 28 Days Qty: 4 0RF polyethylene glycol 3350 [Miralax] 17 gram Powder In Packet 17 g PO DAILY Qty: 30 0RF Continued carbidopa-levodopa [Sinemet] 25-100 mg tablet 3 tab PO TID Rx Instructions: TAKES @ 0800, 1130, 1500, 1830, 7 2200 rosuvastatin 20 mg tablet 20 mg PO QAM Qty: 90 3RF losartan 25 mg tablet 25 mg PO QAM Qty: 90 3RF pantoprazole 40 mg tablet,delayed release (DR/EC) 40 mg PO DAILY Qty: 30 1RF famotidine 40 mg tablet 40 mg PO DAILY Qty: 30 1RF oxybutynin chloride 5 mg tablet 5 mg PO DAILY alprazolam [Xanax] 0.25 mg tablet 0.125 - 0.25 mg PO HS PRN (Reason: sleep) Qty: 30 0RF Rx Instructions: Supervising physician Teresa Martin MD MARKOS [id number] loratadine [Claritin] 10 mg Tablet 10 mg PO QAM cholecalciferol (vitamin D3) [Vitamin D3] 125 mcg (5,000 unit) Tablet 125 mcg PO QAM bupropion HCl 300 mg tablet extended release 24 hr 300 mg PO QAM carbidopa-levodopa 50-200 mg Tablet Extended Release 1 tab PO BID Rx Instructions: takes at 0800, 2200 Discontinued sulfamethoxazole-trimethoprim [Bactrim DS] 800-160 mg tablet 1 tab PO Q12H Qty: 20 0RF Discharge Orders: Discharge Order (Routine); Ordered 01/30/25 Ordered By: Dustin Caldwell Admission Data Admit Date/Time: 01/27/25 16:06 Attending Provider: Dustin Caldwell Admit Provider: Dustin Caldwell Primary Care Provider: Teresa Das Other Providers: Dustin Caldwell; Kelly Lau Other Interventions: Discharge Summary Assessment (RN) Last Done: 01/28/25 12:08 Hospital Stay Data Consultations 01/27/25 13:51 ED Decision to Admit Stat 01/28/25 14:44 Consult Gastroenterology Routine Procedures Performed Operation Date: 01/28/25 16:30 Actual Procedures p EGD Biopsy Cytology(Not Applicable) - Kelly Lau DO Discharge Instructions Given to Patient (Per Discharging Provider) You are seen in the hospital for nausea and poor p.o. intake. Imaging was suggestive of ileus/bowel slowdown which improved with supportive care. You had a endoscopy procedure which showed some stomach inflammation but was otherwise unremarkable. You were seen by gastroenterology. It was recommended that you continue to take MiraLAX once daily which is available [id number], Protonix 40 mg daily which has been prescribed, and Pepcid in the evening before bed which has been prescribed as below. Follow-up evaluation of your gallbladder was discussed however you clinically improved and this was not indicated at time of discharge. You were eating well at time of discharge. Staying hydrated and having regular bowel movements collated with MiraLAX are likely to help prevent recurrence of your symptoms in the future. You had some peripheral neuropathy in your hands during admission. On evaluation you were found to be severely B12 deficient. You were treated with IM B12 injections during admission. You are also started on a low-dose of gabapentin which helped with the neuropathy. Please continue to take vitamin B12 1000 mcg by injection once a week for 1 month, and then can discuss transition to oral supplementation with your primary care provider. IM injection kits have been sent to the pharmacy; however if these are significantly expensive it is worth discussing with your primary care's office if this could be provided via injection in the office as a nurse visit instead. Once your neuropathy improved it is recommended that you discontinue gabapentin as this can contribute to confusion and sedation. If you develop any new or worsening symptoms including fever, chills, sweats, chest pain, chest pressure, difficulty breathing, uncontrolled nausea/vomiting, rash, wheezing, passing out or nearly passing out, bleeding, black/bloody bowel movements, or other new or concerning symptoms please call your primary care physician, or call 911 for re-evaluation in the emergency department if you are very concerned. Total Time Total Time Spent Total Time Spent (In Minutes): Time spend day of discharge 35 minutes including direct patient care, documentation, review of labs and images, and coordination of care. Coding Level of Care Code 21204 INP/OBS DISCH >30 MIN Diagnoses Nausea and vomiting R11.2 Generalized weakness R53.1 BPH with obstruction/lower urinary tract symptoms N40.1; N13.8 HTN (hypertension) I10 GERD (gastroesophageal reflux disease) K21.9 Major depressive disorder with single episode F32.9 Parkinsonism G20 B12 deficiency E53.8
--- NOTE | 2025-01-30 21:10 | Electrocardiogram Report ---
Test Reason : Blood Pressure : */* mmHG Vent. Rate : 62 BPM Atrial Rate : 62 BPM P-R Int : 172 ms QRS Dur : 78 ms QT Int : 422 ms P-R-T Axes : 56 -2 42 degrees QTcB Int : 428 ms Normal sinus rhythm Low voltage QRS Borderline ECG When compared with ECG of 21-Oct-2024 09:05, No significant change was found Confirmed by Haroon Forrest [id number]) on 01/30/2025 9:10:23 PM Referred By: REFERRED SELF Confirmed By: Haroon Forrest
== END 2025-01-30 15:59 | disposition home or self-care (01) ==
LOC: 3N 09:53 → ED 09:53 → 3N 17:12